=== PATIENT | male | born 1940 | race Caucasian/White ===

== ENCOUNTER → 2017-12-11 16:34 | Outpatient (CLI) | payer MEDICARE, OTHER, SELFPAY ==
[2017-01-10 11:37] VITALS: BMI 37.9
--- NOTE | 2017-12-11 16:42 | RAD_ITS ---
STUDY: X-RAY CHEST REASON FOR EXAM: Male, 77 years old. COUGH TECHNIQUE: Frontal and lateral views of the chest. COMPARISON: February 28, 2017 FINDINGS: Chronic appearing increased interstitial lung markings. Total right shoulder arthroplasty. There is no demonstrated pleural abnormality. Normal heart size. Normal mediastinum and jody. Normal visualized pulmonary arteries. There is atherosclerotic calcification of the aortic arch with tortuosity. There are diffuse degenerative changes of the visualized thoracic spine. There is degenerative osteoarthritis of the bilateral shoulders. There is no demonstrated abnormality of the visualized soft tissue structures of the upper abdomen. RAD/Chest PA and Lateral IMPRESSION: There are no acute findings. Electronically Signed: Tolu Beck MD at 17:11 EST , Service support ,
== END ==
PROVIDERS: Family Provider Family Medicine; PCP Family Medicine; Visit Provider Family Medicine
DX: J18.1 Lobar pneumonia, unspecified organism (principal)
CPT/HCPCS: 71046

== ENCOUNTER → 2017-12-21 09:43 | Outpatient (CLI) | payer MEDICARE, OTHER, SELFPAY ==
[2017-01-10 11:37] VITALS: BMI 37.9
[2017-12-21 12:22] LABS: Absolute Lymphocyte Count 2.03 X10^3/ul (0.83-4.51); Absolute Neutrophil Count 4.2 X10^3/uL (2.0-7.7); Basophil# 0.02 X10^3/uL; Basophil% 0.3 % (0-1); Eosinophils% 5.3 % (0-5); Hemoglobin 15.3 g/dl (13.0-16.5); Lymphocyte # 2.03 X10^3/ul (4.0); Lymphocyte % 27.1 % (19-41); Mean Corp Hgb Conc 32.6 g/gl (32-36); Mean Corpuscular Hgb 28.8 pg (27.0-32.0); Mean Corpuscular Volume 88.5 fL (80-94); Mean Platelet Vol. 9.9 fl (6.2-12.0); Monocyte# 0.79 X10^3/uL; Monocyte% 10.6 % (0-10); Neutrophil # 4.23 X10^3/uL (2.7-7.7); Neutrophil % 56.6 % (47-70); Platelet Count 190 K/mm3 (150-450); RBC Distribution Width CV 14.1 % (11.6-14.6); RBC Distribution Width SD 45.6 fl (35.1-43.9); Red Blood Count 5.31 M/mm3 (4.6-6.2); White Blood Count 7.5 K/mm3 (4.4-11.0)
[2017-12-21 12:29] LABS: POSITIVE COUNT NO; POSITIVE DIFFERENTIAL NO; POSITIVE MORPHOLOGY NO
[2017-12-21 13:00] LABS: Anion Gap 10 (5-15); BUN 17 mg/dL (7-18); BUN/Creat Ratio 17.2 RATIO (10-20); Chloride 105 mmol/L (98-107); Creatinine, Serum 0.99 mg/dL (0.70-1.30); EST Glomerular Filtration Rate 78 mL/min (>60); Est Glom Filt Rate - Afr Amer 95 mL/min (>60); Glucose 151 mg/dL (74-106); Potassium 4.1 mmol/L (3.5-5.1); Sodium Level 141 mmol/L (136-145)
[2017-12-21 13:14] LABS: AST(SGOT) 68 U/L (15-37); Alanine Aminotransfer ALT/SGPT 67 U/L (16-61); Albumin, Serum 3.9 g/dL (3.2-5.0); Alkaline Phosphatase 62 U/L (45-117); Bilirubin, Direct 0.22 mg/dL (0.00-0.30); Cholesterol 147 mg/dL (200); Globulin 3.6 g/dL (2.2-4.2); High Density Lipoprotein 56 mg/dL; Protein, Total 7.5 g/dL (6.4-8.2); Triglycerides 174 mg/dL; Very Low Density Lipoprotein 35 mg/dL (5-40)
== END ==
PROVIDERS: Internal Medicine Cardiovascular Disease; Family Provider Family Medicine; PCP Family Medicine; Visit Provider Family Medicine
DX: I10 Essential (primary) hypertension (principal); E11.9 Type 2 diabetes mellitus without complications; E78.5 Hyperlipidemia, unspecified; Z79.899 Other long term (current) drug therapy
CPT/HCPCS: 36415; 80048; 80061; 80076; 85025

== ENCOUNTER → 2018-01-07 15:37 | Outpatient (CLI) | payer MEDICARE, OTHER, SELFPAY ==
[2017-01-10 11:37] VITALS: BMI 37.9
[2018-01-07 17:50] LABS: Absolute Lymphocyte Count 2.16 X10^3/ul (0.83-4.51); Absolute Neutrophil Count 3.6 X10^3/uL (2.0-7.7); Basophil# 0.03 X10^3/uL; Basophil% 0.4 % (0-1); Eosinophils% 4.4 % (0-5); Hematocrit 42.5 % (40-54); Hemoglobin 14.4 g/dl (13.0-16.5); Lymphocyte # 2.16 X10^3/ul (4.0); Lymphocyte % 31.3 % (19-41); Mean Corp Hgb Conc 33.9 g/gl (32-36); Mean Corpuscular Hgb 29.3 pg (27.0-32.0); Mean Corpuscular Volume 86.6 fL (80-94); Mean Platelet Vol. 10.3 fl (6.2-12.0); Monocyte# 0.77 X10^3/uL; Monocyte% 11.2 % (0-10); Neutrophil # 3.62 X10^3/uL (2.7-7.7); Neutrophil % 52.6 % (47-70); Platelet Count 198 K/mm3 (150-450); RBC Distribution Width CV 14.2 % (11.6-14.6); RBC Distribution Width SD 44.4 fl (35.1-43.9); Red Blood Count 4.91 M/mm3 (4.6-6.2); White Blood Count 6.9 K/mm3 (4.4-11.0)
[2018-01-07 17:54] LABS: ALB/GLOB Ratio 1.1 RATIO (0.9-2.4); AST(SGOT) 74 U/L (15-37); Alanine Aminotransfer ALT/SGPT 75 U/L (16-61); Albumin, Serum 3.5 g/dL (3.2-5.0); Alkaline Phosphatase 62 U/L (45-117); Anion Gap 6 (5-15); BUN 15 mg/dL (7-18); BUN/Creat Ratio 16.4 RATIO (10-20); Calcium,Total 8.7 mg/dL (8.5-10.1); Chloride 105 mmol/L (98-107); Creatinine, Serum 0.91 mg/dL (0.70-1.30); EST Glomerular Filtration Rate 86 mL/min (>60); Est Glom Filt Rate - Afr Amer 104 mL/min (>60); Globulin 3.3 g/dL (2.2-4.2); Glucose 140 mg/dL (74-106); Potassium 3.9 mmol/L (3.5-5.1); Protein, Total 6.8 g/dL (6.4-8.2); Sodium Level 138 mmol/L (136-145)
[2018-01-07 17:57] LABS: POSITIVE COUNT NO; POSITIVE DIFFERENTIAL NO; POSITIVE MORPHOLOGY NO
== END ==
PROVIDERS: Family Provider Family Medicine; PCP Family Medicine; Visit Provider Family Medicine
DX: K52.9 Noninfective gastroenteritis and colitis, unspecified (principal); R23.3 Spontaneous ecchymoses
CPT/HCPCS: 36415; 80053; 85025

== ENCOUNTER → 2018-01-10 15:46 | Outpatient (CLI) | payer MEDICARE, OTHER, SELFPAY ==
[2017-01-10 11:37] VITALS: BMI 37.9
[2018-01-14 14:19] LABS: Giardia Lamblia, Stool EIA Negative (Negative)
== END ==
PROVIDERS: Family Provider Family Medicine; PCP Family Medicine; Visit Provider Family Medicine
DX: K52.9 Noninfective gastroenteritis and colitis, unspecified (principal); R23.3 Spontaneous ecchymoses
CPT/HCPCS: 87329; 87493; 87506

== ENCOUNTER → 2018-01-22 08:50 | Outpatient (CLI) | payer MEDICARE, OTHER, SELFPAY ==
[2017-01-10 11:37] VITALS: BMI 37.9
[2018-01-22 11:25] LABS: AST(SGOT) 47 U/L (15-37); Alanine Aminotransfer ALT/SGPT 56 U/L (16-61); Albumin, Serum 3.7 g/dL (3.2-5.0); Alkaline Phosphatase 62 U/L (45-117); Cholesterol 135 mg/dL (200); Globulin 3.4 g/dL (2.2-4.2); High Density Lipoprotein 50 mg/dL; Protein, Total 7.1 g/dL (6.4-8.2); Triglycerides 234 mg/dL; Very Low Density Lipoprotein 47 mg/dL (5-40)
== END ==
PROVIDERS: Family Provider Family Medicine; PCP Family Medicine; Visit Provider Nurse Practitioner Family
DX: E78.5 Hyperlipidemia, unspecified (principal); Z79.899 Other long term (current) drug therapy
CPT/HCPCS: 36415; 80061; 80076

== ENCOUNTER → 2018-03-25 08:58 | Outpatient (CLI) | payer MEDICARE, OTHER, SELFPAY ==
[2017-01-10 11:37] VITALS: BMI 37.9
[2018-03-25 12:43] LABS: AST(SGOT) 57 U/L (15-37); Alanine Aminotransfer ALT/SGPT 64 U/L (16-61); Albumin, Serum 3.7 g/dL (3.2-5.0); Alkaline Phosphatase 67 U/L (45-117); Bilirubin, Direct 0.18 mg/dL (0.00-0.30); Cholesterol 125 mg/dL (200); Globulin 3.6 g/dL (2.2-4.2); High Density Lipoprotein 52 mg/dL; Protein, Total 7.3 g/dL (6.4-8.2); Thyroid Stim Hormone (TSH) 3.34 uIU/mL (0.358-3.74); Triglycerides 137 mg/dL; Very Low Density Lipoprotein 27 mg/dL (5-40)
== END ==
PROVIDERS: Nurse Practitioner Family; Family Provider Family Medicine; PCP Family Medicine; Visit Provider Family Medicine
DX: E78.5 Hyperlipidemia, unspecified (principal); Z79.899 Other long term (current) drug therapy
CPT/HCPCS: 36415; 80061; 80076; 84443

== ENCOUNTER → 2018-06-21 09:33 | Outpatient (CLI) | payer MEDICARE, OTHER, SELFPAY ==
[2017-01-10 11:37] VITALS: BMI 37.9
--- NOTE | 2018-06-21 10:34 | CDU_ITS ---
Reason For Study: Carotid bruit Rt. Velocities/BP Lt. Velocities/BP Prox CCA 90.9/19.3 cm/sec. Prox CCA 100.0/21.1 cm/sec. Mid CCA 83.8/17.0 cm/sec. Mid CCA 88.5/25.8 cm/sec. Dist CCA 73.3/14.7 cm/sec. Dist CCA 75.6/18.8 cm/sec. Prox ICA 53.9/15.2 cm/sec. Prox ICA 66.3/24.0 cm/sec. Mid ICA 64.0/22.8 cm/sec. Mid ICA 75.6/25.8 cm/sec. Dist ICA 89.1/28.7 cm/sec. Dist ICA 94.4/33.4 cm/sec. Rt. ICA/CCA = 1.1. Lt. ICA/CCA = 1.1. Prox ECA 120.0/15.8 cm/sec. Prox ECA 106.0/17.6 cm/sec. Rt. Vert. 53.7/14.7 cm/sec. Lt. Vert. 51.0/16.4 cm/sec. Right Extracranial There is intimal thickening but no significant atherosclerotic plaque noted in the right common carotid artery. There is heterogeneous, irregular atherosclerotic plaque noted in the right internal carotid artery. There is intimal thickening but no significant atherosclerotic plaque noted in the right external carotid artery. Antegrade flow is noted in the right vertebral artery. Left Extracranial There is intimal thickening but no significant atherosclerotic plaque noted in the left common carotid artery. There is heterogeneous, irregular atherosclerotic plaque noted in the left internal carotid artery. There is no significant atherosclerotic plaque noted in the left external carotid artery. Antegrade flow is noted in the left vertebral artery. Procedure Carotid Duplex 24698. Exam performed in department. Interpretation Summary Minimal calcific plague at the proximal right internal carotid with <50% stenosis. Mild smooth calcific plague at the proximal left internal carotid with <50% stenosis. Mild disease bilateral external carotids Patent and antegrade vertebrals bilaterally Ordering Physician: Tanner Tam Referring Physician: Jose Manuel Estevez Performed By: Karolyn De Anda RVT
--- NOTE | 2018-06-21 10:34 | ECHOCS_ITS ---
Reason For Study: ASHD, DYSPNEA/SOB Procedure This was a 2D Doppler, Color Flow transthoracic echocardiogram. The study was technically difficult. Due to body habitus. Contrast injection was performed. Left Ventricle Normal size and thickness. The estimated ejection fraction is 65 %. Stage 1 diastolic dysfunction. No regional wall motion abnormalities noted. Right Ventricle Normal size and thickness. Normal systolic function. Atria Normal left atrium. Normal right atrium. Normal atrial septum. Mitral Valve The mitral valve is structurally normal. No prolapse or stenosis seen. Tricuspid Valve Normal tricuspid valve. Trivial tricuspid valve insufficiency. Right ventricular systolic pressure estimated to be 31 mmHg. Aortic Valve Mild diffuse aortic valve thickening. Moderate focal aortic valve thickening. Immobile right coronary cusp. Mild aortic stenosis. Peak aortic valve gradient 13 mmHg. Mean aortic valve gradient 8 mmHg. Pulmonic Valve The pulmonic valve is not well visualized. Great Vessels Normal aortic root. Normal arch. Normal inferior vena cava. Inferior vena cava collapse with sniff. Pericardium/Pleural No pericardial effusion. Medication 22 gauge I.V. with prn adaptor inserted into right arm. Diluted definity 3.0ml given slow IV push to enhance endocardial definition. MMode/2D Measurements & Calculations LVIDd: 4.4 cm IVSd: 1.2 cm LVOT diam: 2.1 cm LVIDs: 2.7 cm LVPWd: 1.2 cm LVOT area: 3.3 cm2 RVDd: 2.9 cm FS: 38.7 % Ao root diam: 3.7 cm LAV(MOD-bp): 58.5 ml LA A4 area: 18.6 cm2 LA dimension: 4.0 cm LAV(MOD-bp) Indexed: 25.4 ml/m2 LAV(MOD-sp2): 52.2 ml LAV(MOD-sp4): 61.1 ml RA A4 area: 14.0 cm2 Doppler Measurements & Calculations MV E max silverio: 66.2 cm/sec Lat Peak E' Silverio: 6.6 cm/sec Med Peak E' Silverio: 5.8 cm/sec MV A max silverio: 96.1 cm/sec E/E' lat: 10.0 E/E' med: 11.4 MV E/A: 0.69 Ao V2 max: 179.9 cm/sec LV V1 max: 94.4 cm/sec SV(LVOT): 63.2 ml Ao max P.0 mmHg LV V1 max P.6 mmHg Ao V2 mean: 131.4 cm/sec LV V1 mean P.0 mmHg Ao mean P.5 mmHg LV V1 mean: 68.1 cm/sec Ao V2 VTI: 36.6 cm LV V1 VTI: 18.9 cm FARIBA(I,D): 1.7 cm2 FARIBA(V,D): 1.8 cm2 PA V2 max: 84.0 cm/sec TR max silverio: 255.9 cm/sec TR max P.2 mmHg Interpretation Summary The estimated ejection fraction is 65 %. Stage 1 diastolic dysfunction. Trivial tricuspid valve insufficiency. Right ventricular systolic pressure estimated to be 31 mmHg. Immobile right coronary cusp. Mild aortic stenosis. Compared to echo report dated 05/16/2017, no appreciable changes noted. The study was technically difficult. Contrast injection was performed. Ordering Physician: Tanner Tam Referring Physician: Jose Manuel Estevez Performed By: Pallavi Pinzon RDCS, RVT
== END ==
PROVIDERS: Family Provider Family Medicine; PCP Family Medicine; Visit Provider Internal Medicine Cardiovascular Disease
DX: I25.10 Atherosclerotic heart disease of native coronary artery without angina pectoris (principal); R09.89 Other specified symptoms and signs involving the circulatory and respiratory systems
CPT/HCPCS: 93306; 93880; Q9957; A4216; C8929

== ENCOUNTER → 2018-07-03 09:34 | Outpatient (CLI) | payer MEDICARE, OTHER, SELFPAY ==
[2017-01-10 11:37] VITALS: BMI 37.9
== END ==
PROVIDERS: Family Provider Family Medicine; PCP Family Medicine; Visit Provider Internal Medicine Cardiovascular Disease
DX: I25.10 Atherosclerotic heart disease of native coronary artery without angina pectoris (principal); I25.2 Old myocardial infarction; R07.89 Other chest pain; R06.02 Shortness of breath; R06.00 Dyspnea, unspecified; Z95.5 Presence of coronary angioplasty implant and graft
CPT/HCPCS: 93017; 93350; J7030; A4216

== ENCOUNTER → 2018-09-25 08:43 | Outpatient (CLI) | payer MEDICARE, OTHER, SELFPAY ==
[2017-01-10 11:37] VITALS: BMI 37.9
[2018-09-25 09:49] LABS: AST(SGOT) 57 U/L (15-37); Alanine Aminotransfer ALT/SGPT 72 U/L (16-61); Albumin, Serum 3.6 g/dL (3.2-5.0); Alkaline Phosphatase 69 U/L (45-117); Bilirubin, Direct 0.23 mg/dL (0.00-0.30); Cholesterol 139 mg/dL (200); Globulin 3.3 g/dL (2.2-4.2); High Density Lipoprotein 51 mg/dL; Protein, Total 6.9 g/dL (6.4-8.2); Triglycerides 216 mg/dL; Very Low Density Lipoprotein 43 mg/dL (5-40)
== END ==
PROVIDERS: Family Provider Family Medicine; PCP Family Medicine; Referring Provider Nurse Practitioner Family; Visit Provider Nurse Practitioner Family
DX: E78.5 Hyperlipidemia, unspecified (principal)
CPT/HCPCS: 36415; 80061; 80076

== ENCOUNTER → 2018-11-18 15:29 | Outpatient (CLI) | payer MEDICARE, OTHER, SELFPAY ==
[2017-01-10 11:37] VITALS: BMI 37.9
--- NOTE | 2018-11-18 15:35 | RAD_ITS ---
STUDY: X-RAY CHEST REASON FOR EXAM: Male, 78 years old. Cough. TECHNIQUE: PA and lateral views of the chest. COMPARISON: December 11, 2017 FINDINGS: There is no new focal consolidation. There are stable left basilar streaky opacities. Normal size heart. Normal mediastinum and jody. Normal visualized pulmonary arteries. Normal visualized aortic arch and descending thoracic aorta. There are diffuse degenerative changes of the visualized thoracic spine. There is a right shoulder arthroplasty. There is no demonstrated abnormality of the visualized soft tissue structures of the upper abdomen. RAD/Chest PA and Lateral IMPRESSION: Stable examination demonstrating no acute cardiopulmonary process. Electronically Signed: Christina Greene MD at 16:05 EST Tel , Service support ,
[2018-11-18 18:00] LABS: Absolute Lymphocyte Count 2.65 X10^3/ul (0.83-4.51); Absolute Neutrophil Count 5.4 X10^3/uL (2.0-7.7); Basophil# 0.03 X10^3/uL; Basophil% 0.3 % (0-1); Eosinophil# 0.33 X10^3/uL; Eosinophils% 3.5 % (0-5); Hematocrit 45.7 % (40-54); Hemoglobin 15.2 g/dl (13.0-16.5); Lymphocyte # 2.65 X10^3/ul (4.0); Lymphocyte % 27.9 % (19-41); Mean Corp Hgb Conc 33.3 g/gl (32-36); Mean Corpuscular Hgb 29.9 pg (27.0-32.0); Mean Corpuscular Volume 89.8 fL (80-94); Monocyte# 1.08 X10^3/uL; Monocyte% 11.4 % (0-10); Neutrophil # 5.37 X10^3/uL (2.7-7.7); Neutrophil % 56.6 % (47-70); Platelet Count 245 K/mm3 (150-450); RBC Distribution Width CV 14.1 % (11.6-14.6); RBC Distribution Width SD 46.1 fl (35.1-43.9); Red Blood Count 5.09 M/mm3 (4.6-6.2); White Blood Count 9.5 K/mm3 (4.4-11.0)
[2018-11-18 18:07] LABS: ALB/GLOB Ratio 1.1 RATIO (0.9-2.4); AST(SGOT) 80 U/L (15-37); Alanine Aminotransfer ALT/SGPT 74 U/L (16-61); Albumin, Serum 3.9 g/dL (3.2-5.0); Alkaline Phosphatase 77 U/L (45-117); Anion Gap 12 (5-15); BUN 15 mg/dL (7-18); BUN/Creat Ratio 14.6 RATIO (10-20); Calcium,Total 9.5 mg/dL (8.5-10.1); Chloride 101 mmol/L (98-107); Creatinine, Serum 1.03 mg/dL (0.70-1.30); EST Glomerular Filtration Rate 74 mL/min (>60); Est Glom Filt Rate - Afr Amer 90 mL/min (>60); Globulin 3.6 g/dL (2.2-4.2); Glucose 168 mg/dL (74-106); Protein, Total 7.5 g/dL (6.4-8.2); Sodium Level 141 mmol/L (136-145); T4 Free Direct 0.84 ng/dL (0.76-1.46); Thyroid Stim Hormone (TSH) 4.05 uIU/mL (0.358-3.74)
[2018-11-18 18:21] LABS: POSITIVE COUNT NO; POSITIVE DIFFERENTIAL NO; POSITIVE MORPHOLOGY NO
== END ==
PROVIDERS: Family Provider Family Medicine; PCP Family Medicine; Referring Provider Family Medicine; Visit Provider Family Medicine
DX: E11.9 Type 2 diabetes mellitus without complications (principal); I10 Essential (primary) hypertension; R79.89 Other specified abnormal findings of blood chemistry; R05 Cough; R06.02 Shortness of breath
CPT/HCPCS: 36415; 71046; 80053; 84439; 84443; 85025

== ENCOUNTER → 2019-01-07 09:52 | Outpatient (CLI) | payer MEDICARE, OTHER, SELFPAY ==
[2017-01-10 11:37] VITALS: BMI 37.9
[2018-12-30 14:44] VITALS: BMI 38.5
[2019-01-07 13:02] LABS: T4 Free Direct 0.82 ng/dL (0.76-1.46); Thyroid Stim Hormone (TSH) 3.75 uIU/mL (0.358-3.74)
== END ==
PROVIDERS: Family Provider Family Medicine; PCP Family Medicine; Visit Provider Family Medicine
DX: E03.9 Hypothyroidism, unspecified (principal)
CPT/HCPCS: 36415; 84439; 84443

== ENCOUNTER → 2019-01-08 13:22 | Outpatient (CLI) | payer MEDICARE, OTHER, SELFPAY ==
[2017-01-10 11:37] VITALS: BMI 37.9
[2018-12-30 14:44] VITALS: BMI 38.5
[2019-01-08 13:24] LABS: Bacteria 0 SEEN /hpf (None Seen); Mucous, Urine 0 SEEN /hpf (<or=2+); Red Blood Cells-Urine 0 SEEN /hpf (0-5); Squamous Epithelial Cells - UA 0 SEEN /hpf (0-5); White Blood Cells 0 SEEN /hpf (0-5)
[2019-01-08 15:42] LABS: Color, Urine Yellow (Yellow); Glucose, Dipstick 1000 mg/dl (Normal); Ketone-Dipstick Negative (Negative); Leukocyte Esterase-Dipstick Negative /ul (Negative); Nitrite-Dipstick Negative (Negative); Occult Blood-Urine Negative /ul (Negative); Protein-Dipstick Negative (Negative); Specific Gravity, Urine 1.015 (1.002-1.030); Urine Bilirubin Dipstick Negative (Negative); Urine Clarity Clear (Clear); Urine Urobilinogen Normal (Normal)
== END ==
PROVIDERS: Family Provider Family Medicine; PCP Family Medicine; Visit Provider Family Medicine
DX: Z87.442 Personal history of urinary calculi (principal)
CPT/HCPCS: 81001

== ENCOUNTER 2019-02-16 19:02 | Inpatient (IN) | payer MEDICARE, OTHER, SELFPAY ==
[2017-01-10 11:37] VITALS: BMI 37.9
[2018-12-30 14:44] VITALS: BMI 38.5
[2019-02-16 19:04] VITALS: BP 162/69; PULSE 101; RESP 18; TEMP 37.7; O2SAT 95; BMI 38.7
--- NOTE | 2019-02-16 19:57 | EKG12_ITS ---
Test Reason : WEAKNESS Blood Pressure : / mmHG Vent. Rate : 098 BPM Atrial Rate : 098 BPM P-R Int : 166 ms QRS Dur : 088 ms QT Int : 336 ms P-R-T Axes : 026 -12 055 degrees QTc Int : 428 ms Normal sinus rhythm Low Voltage QRS (Limb Leads) Poor R-Wave Progression Confirmed by OCTAVIO TOURE, STEWART ([id number]), newspaper photo editor TRAE LEVY ([id number]) on 02/19/2019 1:09:44 PM Referred By: Confirmed By:STEWART CUNNINGHAM MD
[2019-02-16] MEDS: 0.9% Normal Saline 1,000 ML 1000 ML IV (20:06)
[2019-02-16 20:18] LABS: Absolute Lymphocyte Count 1.42 X10^3/ul (0.83-4.51); Basophil# 0.02 X10^3/uL; Basophil% 0.1 % (0-1); Eosinophil# 0.06 X10^3/uL; Eosinophils% 0.4 % (0-5); Hematocrit 43.7 % (40-54); Hemoglobin 14.5 g/dl (13.0-16.5); Lymphocyte # 1.42 X10^3/ul (4.0); Lymphocyte % 9.4 % (19-41); Mean Corp Hgb Conc 33.2 g/gl (32-36); Mean Corpuscular Hgb 28.8 pg (27.0-32.0); Mean Corpuscular Volume 86.7 fL (80-94); Mean Platelet Vol. 10.4 fl (6.2-12.0); Monocyte# 1.55 X10^3/uL; Monocyte% 10.3 % (0-10); Neutrophil # 11.96 X10^3/uL (2.7-7.7); Neutrophil % 79.6 % (47-70); Platelet Count 166 K/mm3 (150-450); RBC Distribution Width SD 44.2 fl (35.1-43.9); Red Blood Count 5.04 M/mm3 (4.6-6.2)
[2019-02-16 20:20] LABS: Differential Indicated SCAN CRITERIA MET; POSITIVE COUNT NO; POSITIVE DIFFERENTIAL YES; POSITIVE MORPHOLOGY NO
[2019-02-16 20:30] LABS: ALB/GLOB Ratio 1.1 RATIO (0.9-2.4); AST(SGOT) 55 U/L (15-37); Alanine Aminotransfer ALT/SGPT 63 U/L (16-61); Albumin, Serum 3.7 g/dL (3.2-5.0); Alkaline Phosphatase 81 U/L (45-117); Anion Gap 9 (5-15); BUN 10 mg/dL (7-18); BUN/Creat Ratio 9.8 RATIO (10-20); Chloride 100 mmol/L (98-107); Creatinine, Serum 1.02 mg/dL (0.70-1.30); EST Glomerular Filtration Rate 75 mL/min (>60); Est Glom Filt Rate - Afr Amer 91 mL/min (>60); Estimated Creatinine Clearance 59.69 ml/min; Globulin 3.5 g/dL (2.2-4.2); Glucose 233 mg/dL (74-106); Lipase 97 U/L (73-393); Protein, Total 7.2 g/dL (6.4-8.2); Sodium Level 134 mmol/L (136-145)
--- NOTE | 2019-02-16 20:35 | CT_ITS ---
HISTORY: LEFT SIDE ABD PAIN WITH WEAKNESS SINCE YESTERDAY, FEVER, ELEVATED WBC, HX CAD, HTN, SC WITH STENTS, GB, DIAB, SKIN CA EXAMINATION: CT Abdomen And Pelvis W/ Contrast TECHNIQUE: Helically acquired images were obtained of the abdomen and pelvis following IV contrast. A radiation dose optimization technique was used for this scan. IV Contrast dosage and agent: 100ML Isovue 370 Oral contrast: None. COMPARISON: 09/23/15 CT abdomen and pelvis. FINDINGS: LOWER CHEST: Asymmetric density left posterior lung base. Right side clear. No cardiomegaly. LIVER: Hepatic steatosis with mild hepatomegaly. GALLBLADDER AND BILIARY TREE: Status post cholecystectomy. No intra- or extrahepatic biliary ductal dilation. KIDNEYS AND URETERS: Normal renal size and position. There is no hydronephrosis. ADRENAL GLANDS: 2.4 cm diameter low-density left adrenal nodule most likely an adenoma. Right adrenal gland are unremarkable. SPLEEN: Normal size without focal cystic or solid mass. PANCREAS: No focal cystic or solid mass. BOWEL: No evidence of acute appendicitis. No stomach or bowel distension. No focal inflammatory change observed. Sigmoid colon diverticulosis, no diverticulitis. LYMPH NODES: No enlarged mesenteric or retroperitoneal lymph nodes. PERITONEUM: No ascites or free air. No other fluid collection. VESSELS: Aorta is non-dilated. URINARY BLADDER: Unremarkable. REPRODUCTIVE ORGANS: No pelvic masses. ABDOMINAL WALL: Small umbilical and bilateral inguinal hernias contain fat but no bowel. BONES: L3-5 laminectomy. Prominent degenerative changes lumbar spine. No acute osseous abnormality. CT/Abdomen/Pelvis W IV Cont ONLY IMPRESSION: Asymmetric density left lung base; mild pneumonia versus asymmetric atelectasis. Several other chronic findings as above. Individualized dose optimization techniques were used for this CT. at 2123 Reported and signed by: Sylvain Andrade MD Electronically Signed: Sylvain Andrade, at 21:22 EDT Tel , Service support ,
[2019-02-16 20:45] LABS: Lactic Acid 2.1 mmol/L (0.4-2.0)
[2019-02-16 20:46] LABS: Mucous, Urine 0 SEEN /hpf (<or=2+); White Blood Cells 0 SEEN /hpf (0-5)
[2019-02-16 20:48] LABS: Differential Comment SCANNED
[2019-02-16 20:48] LABS: Color, Urine Yellow (Yellow); Glucose, Dipstick 1000 mg/dl (Normal); Ketone-Dipstick 15 mg/dl (Negative); Leukocyte Esterase-Dipstick Negative /ul (Negative); Nitrite-Dipstick Negative (Negative); Occult Blood-Urine 10 /ul (Negative); Protein-Dipstick Negative (Negative); Urine Bilirubin Dipstick Negative (Negative); Urine Clarity Sl. Cloudy (Clear); Urine Urobilinogen Normal (Normal)
[2019-02-16 20:55] VITALS: BP 169/79; PULSE 98; RESP 18; TEMP 37.7; O2SAT 95
[2019-02-16 21:03] VITALS: PULSE 101; RESP 18; O2SAT 97
--- NOTE | 2019-02-16 21:05 | RAD_ITS ---
HISTORY: LEFT SIDED ABD PAIN STARTED LAST NIGHT AND INCREASED WEAKNESS STARTED LAST NIGHT AND CONTINUED TODAY. EXAM/TECHNIQUE: XR Chest 1 View: COMPARISON: 11/18/18 CXR. FINDINGS: # of images incl. paperwork: 1 Left basilar opacity, new compared to prior. Lungs otherwise clear. No evidence of pneumothorax or pleural effusion. Right shoulder arthroplasty partially visible. No acute osseous abnormality. Heart size within normal limits. RAD/Chest 1 View (Portable) IMPRESSION: Left basilar opacity, pneumonia versus asymmetric atelectasis. at 2133 Reported and signed by: Sylvain Andrade MD Electronically Signed: Sylvain Andrade, at 21:32 EDT Tel , Service support ,
--- NOTE | 2019-02-16 21:16 | ED.RN ---
NOTIFIED- PT REFUSED MORPHINE AND ZOFRAN; UPDATED ON LACTIC ACID OF 2.1
[2019-02-16 21:37] LABS: Bacteria RARE /hpf (None Seen); Red Blood Cells-Urine 0-5 SEEN /hpf (0-5); Squamous Epithelial Cells - UA 0-5 SEEN /hpf (0-5)
--- NOTE | 2019-02-16 21:54 | ED.DCSUM_ITS ---
- ER Visit Summary Date of Service: 02/16/19 Chief Complaint: Weakness History of Present Illness: The patient is a 78 M who presents the emergency department with generalized weakness. He states that yesterday afternoon into the evening had a little bit of left upper quadrant discomfort. He states that he has had a cough and chills throughout the day. The pain was worse today. The was so bad that he could barely walk with his walker. Physical Examination: Temperature of 100 orally heart rate of 101 respirations are 18 pulse ox 95% room air blood pressure 162/69 Gen: Well-nourished well-developed morbidly obese Head: Normocephalic atraumatic Eyes: Perrl EOMI ENT: TMs clear no rhinorrhea moist mucous membranes Neck: Supple no lymphadenopathy no JVD nontender CVS: Regular rate tachycardic rhythm no murmurs normal S1-S2 Respiratory: No distress clear to auscultation bilaterally chest nontender (lung auscultation limited due to body habitus) moist cough Abdomen: Soft nontender nondistended normal bowel sounds no masses Back: Nontender Extremity: Nontender no edema Skin: Normal color no rash Neuro: alert orientated ?3 CN II-XII intact normal strength sensation reflexes gait cerebellar Psych: Normal affect normal mood Test Results: White blood cell count elevated at 15. EKG showed a sinus rhythm at a rate of 98. Troponin negative. Lactic acid elevated 2.1. Urinalysis normal. CT of the abdomen pelvis demonstrates a left lower lobe infiltrate. Otherwise no acute abdominal pathology to explain his discomfort. Chest x-ray showed the left lower lobe infiltrate. Emergency Department Course and Treatment: IV was established and patient received IV fluids. Later he received Rocephin and azithromycin after blood cultures. Plan is admission to the hospital. He did refuse morphine for pain. Impression: 1. Pneumonia 2. Sepsis This note was generated with [employer] dictation software. It may contain incorrect words, spelling, and punctuation that were not noted in review of the chart prior to signing ED Disposition - Plan for ED Patient: Referrals: Jose Manuel Estevez MD [Primary Care Provider] -
--- NOTE | 2019-02-16 21:56 | PCM.HP.STD ---
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 She denies any aggravating factor. Associated with symptoms is weakness to the point that he is unable to do his daily activities of living. He denies any aggravating factor to the pain. Associated with her symptoms is chills; poor appetite; and nausea without vomiting. He has on and off nonproductive cough that has been going on for some time On presentation patient he was found to have tachycardia with highest heart rate of 101; fever of 100.9; and white count of 15.0. Further he was found to have a lactic acid of 2.1. Chest x-ray showed left basilar opacity. Abdomen and pelvis CT showed asymmetric density of the left lung base. Past Medical History Past Medical History (Chronic Problems): Chronic Problems (Last Reviewed 12/30/18 @ 14:29 by Marilia Rodríguez) Essential hypertension (Chronic) Atherosclerosis of coronary artery of [place] heart without angina pectoris (Chronic) PCI-TYLER-Mid LCX w/ 3.0 x 32 mm Promus 01/10/2017 and PCI-TYLER w/ 3.0 x 12 mm Synergy Distal LCX overlapping it with the previous stent on 01/14/2017 History of coronary artery stent placement (Chronic 01/14/17) PCI-TYLER-Mid LCX w/ 3.0 x 32 mm Promus 01/10/2017 and PCI-TYLER w/ 3.0 x 12 mm Synergy Distal LCX overlapping it with the previous stent on 01/14/2017 Old inferior wall myocardial infarction (Chronic) Medical History: Medical History (Last Reviewed 02/17/19 @ 08:05 by Dipesh Grey MD) Essential hypertension (Chronic) I10 Carotid bruit (Acute) R09.89 Transient speech disturbance (Acute) R47.9 Chest discomfort (Acute) R07.89 Dyspnea on exertion (Acute) R06.09 Atherosclerosis of coronary artery of [place] heart without angina pectoris (Chronic) I25.10 PCI-TYLER-Mid LCX w/ 3.0 x 32 mm Promus 01/10/2017 and PCI-TYLER w/ 3.0 x 12 mm Synergy Distal LCX overlapping it with the previous stent on 01/14/2017 Old inferior wall myocardial infarction (Chronic) I25.2 Asthma J45.909 BPH (benign prostatic hyperplasia) N40.0 Cervical spondylosis M47.812 Elevated liver enzymes R74.8 Fatty liver K76.0 Fibromyalgia M79.7 GERD (gastroesophageal reflux disease) K21.9 Obesity E66.9 Osteoarthritis M19.90 Peripheral neuropathy G62.9 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 Type 2 diabetes mellitus without complications E11.9 Hypertension (Inactive) I10 Allergies acetaminophen [From Percocet] Allergy (Verified 02/16/19 19:12) Unknown hydrocodone [From Vicodin] Allergy (Verified 02/16/19 19:12) Unknown lactase [From Dairy Aid] Allergy (Verified 02/16/19 19:12) Unknown mold Allergy (Verified 02/16/19 19:12) Unknown oxycodone [From Percocet] Allergy (Verified 02/16/19 19:12) Unknown Penicillins Allergy (Verified 02/16/19 19:12) Unknown pollen extracts Allergy (Verified 02/16/19 19:12) Unknown rofecoxib [From Vioxx] Allergy (Verified 02/16/19 19:12) Unknown Sulfa (Sulfonamide Antibiotics) Allergy (Verified 02/16/19 19:12) Unknown Home Medications: Ambulatory Orders Medication Instructions Recorded Aspirin 81 mg PO DAILY 01/09/17 Cyclobenzaprine HCl 10 mg PO TID PRN 01/09/17 Lutein 20 mg PO QODAY 01/09/17 Metformin HCl [Glucophage] 500 mg PO BIDCM 01/09/17 Metoprolol(XL)Succ [Toprol Xl 25 mg PO DAILY 01/09/17 (Beta Kourtney)] Multivitamins,Therapeutic 1 tab PO DAILY 01/09/17 [Multivitamin] Ranolazine [Ranexa] 500 mg PO BID 01/09/17 Simvastatin [Zocor] 20 mg PO QHS 01/09/17 Tamsulosin HCl [Flomax] 0.4 mg PO BID 01/09/17 Tramadol HCl [Ultram] 50 mg PO BID PRN 01/09/17 Ubidecarenone [Co Q-10] 200 mg PO QODAY 01/09/17 finasteride 5 mg tablet 5 mg PO QDAY 06/07/18 gabapentin 100 mg capsule 100 mg PO BID cap 06/07/18 omeprazole 40 mg capsule,delayed 40 mg PO QDAY 06/07/18 release diclofenac 1 % topical gel 2 g TOPICAL BID g 12/30/18 Surgical History: Surgical History (Last Reviewed 02/17/19 @ 08:05 by Dipesh Grey MD) History of coronary artery stent placement (Chronic) Onset Date: 01/14/17 Z95.5 PCI-TYLER-Mid LCX w/ 3.0 x 32 mm Promus 01/10/2017 and PCI-TYLER w/ 3.0 x 12 mm Synergy Distal LCX overlapping it with the previous stent on 01/14/2017 H/O arthroscopy of left knee Z98.890 History of back surgery Z98.890 History of basal cell carcinoma excision Z98.890, Z85.828 History of prostate surgery Z98.890 History of right shoulder replacement Z96.611 History of tonsillectomy Z90.89 Hx of cholecystectomy Z90.49 Surgical History: cholecystectomy, tonsillectomy, - - Left knee Arthroscopy, Prostate procedure 1993, Lumbar Sx 2006, R shoulder eplacement 09/17/2012, Skin cancer removal of trunk arm and leg Lives: Spouse/ Significant Other Smoking Status: Former smoker Alcohol: None - *Family History Maternal Family History: Family History (Last Reviewed 02/17/19 @ 08:06 by Dipesh Grey MD) Father CAD (coronary artery disease) History Items: No pertinent history Review of Systems Constitutional: Reports: Anorexia, Chills. Denies: Weight Change HEENT: Denies: Head Aches, Sinus Congestion, Sinus Drainage Cardiovascular: Denies: Chest Pain, Palpitations Respiratory: Reports: Cough - Chronic. Denies: Shortness of breath at rest, Sputum production Gastrointestinal: Reports: Abdominal Pain, Nausea. Denies: Vomiting Genitourinary: Denies: Dysuria Musculoskeletal: Denies: Joint Pain, Joint Tenderness Skin: Denies: Rash, Wounds Neurological: Denies: Numbness, Tingling, Focal weakness Psychiatric: Denies: Anxiety, Depression, Homicidal Ideations, Suicidal Ideations Hematologic/ Lymphatic: Denies: Easy Bruising, Easy Bleeding VTE Information - Inpt Only VTE Present on Admission: No VTE Mechan Device Prophylaxis: None VTE Pharm Prophylaxis ordered?: Yes Patient Problems: Active and Suspected Problems (Last Reviewed 12/30/18 @ 14:29 by Marilia Rodríguez) Sepsis due to pneumonia (Acute) - Physical Exam General: Alert, Oriented x3, Cooperative HEENT: Atraumatic, PERRLA, EOMI, Normocephalic Neck: Supple, No JVD, Negative Carotid Bruits Lungs: Rales - Left lung base Cardiovascular: No murmurs, Tachycardic Abdomen: Bowel Sounds Present, Soft, Non Tender Extremities: No edema, Capillary Refill Less than 3 Seconds Skin: No rashes, No breakdown Musculoskeletal: No Tenderness to Palpation of Joints or Extremities Neurological: Neuro grossly intact Psych/Mental Status: Normal Affect, Appropriate Vital Signs Temp Pulse Resp BP Pulse Ox 100 F H 101 H 18 169/79 H 97 02/16/19 20:55 02/16/19 21:03 02/16/19 21:03 02/16/19 20:55 02/16/19 21:03 Oxygen Flow Rate (L/min) 2 Oxygen Delivery Method Nasal Cannula Weight: 119.2 kg Body Mass Index (BMI) 38.7 Laboratory Tests Past 24 Hrs 02/16/19 02/16/19 02/16/19 19:10 19:10 20:10 WBC 15.0 H RBC 5.04 Hgb 14.5 Hct 43.7 MCV 86.7 MCH 28.8 MCHC 33.2 RDW 14.0 RDW Differential 44.2 H Plt Count 166 MPV 10.4 Immature Gran % (Auto) 0.200 Neut % (Auto) 79.6 H Lymph % (Auto) 9.4 L [place] % (Auto) 10.3 H Eos % (Auto) 0.4 Baso % (Auto) 0.1 Absolute Neuts (auto) 12.0 H Absolute Lymphs (auto) 1.42 Total Counted Not Reportable Differential Comment SCANNED Sodium 134 L Potassium 4.0 Chloride 100 Carbon Dioxide 25.0 Anion Gap 9 BUN 10 Creatinine 1.02 Estim Creat Clear Calc 59.69 Est GFR (MDRD) Af Amer 91 Est GFR (MDRD) Non-Af 75 BUN/Creatinine Ratio 9.8 L Glucose 233 H Lactic Acid 2.1 H Calcium 9.0 Total Bilirubin 1.20 H AST 55 H ALT 63 H Alkaline Phosphatase 81 Troponin I < 0.015 Total Protein 7.2 Albumin 3.7 Globulin 3.5 Albumin/Globulin Ratio 1.1 Lipase 97 Urine Color Urine Clarity Urine pH Ur Specific [place] Urine Protein Urine Glucose (UA) Urine Ketones Urine Occult Blood Urine Nitrite Urine Bilirubin Urine Urobilinogen Ur Leukocyte Esterase Urine RBC Urine WBC Ur Squamous Epith Cells Urine Bacteria Urine Mucus 02/16/19 20:35 WBC RBC Hgb Hct MCV MCH MCHC RDW RDW Differential Plt Count MPV Immature Gran % (Auto) Neut % (Auto) Lymph % (Auto) [place] % (Auto) Eos % (Auto) Baso % (Auto) Absolute Neuts (auto) Absolute Lymphs (auto) Total Counted Differential Comment Sodium Potassium Chloride Carbon Dioxide Anion Gap BUN Creatinine Estim Creat Clear Calc Est GFR (MDRD) Af Amer Est GFR (MDRD) Non-Af BUN/Creatinine Ratio Glucose Lactic Acid Calcium Total Bilirubin AST ALT Alkaline Phosphatase Troponin I Total Protein Albumin Globulin Albumin/Globulin Ratio Lipase Urine Color Yellow Urine Clarity Sl. Cloudy Urine pH 6.0 Ur Specific [place] 1.010 Urine Protein Negative Urine Glucose (UA) 1000 H Urine Ketones 15 H Urine Occult Blood 10 H Urine Nitrite Negative Urine Bilirubin Negative Urine Urobilinogen Normal Ur Leukocyte Esterase Negative Urine RBC 0-5 SEEN Urine WBC 0 SEEN Ur Squamous Epith Cells 0-5 SEEN Urine Bacteria RARE Urine Mucus 0 SEEN Assessment/Plan All Active Problems (Last Reviewed 12/30/18 @ 14:29 by Marilia Rodríguez) Sepsis due to pneumonia (Acute) Carotid bruit (Acute) Transient speech disturbance (Acute) Chest discomfort (Acute) Dyspnea on exertion (Acute) The patient is a 78 year old M with a significant history of type 2 diabetes; essential hypertension; CAD status post stent; fibromyalgia and who had right eye lens implants on 02/12/2019 presenting because of progressively worsening severe left upper quadrant nonradiating pain; and meet SIRS criteria with fever of 100.9; tachycardia with heart rate of 101; leukocytosis of white count of 15 and with radiographic evidence of left basilar opacity consistent with sepsis secondary to community-acquired pneumonia. Second to committee acquired pneumonia Lactic acid: 2.1 RR ~18 on presentation Tachycardia with highest heart rate of 101 WBC of 15 Fever of 100.9 Fahrenheit Blood culture ?2 is pending Trend lactic acid Patient is not having a productive cough to obtain sputum culture. Chest x-ray: Showed left basilar opacity. Chest x-ray was independently reviewed I agree with radiologist interpretation Abdomen and pelvis CT showed asymmetrical density of the left lung base. CT was independently reviewed. I agree with the latest interpretation. Antibiotics: Received ceftriaxone and azithromycin emergency department. Ceftriaxone and azithromycin continued. IV hydration: Received IV fluid normal saline bolus at emergency department and was started on maintenance infusion. We will continue but decrease maintenance infusion rate. Patient denies any shortness of breath on presentation. Will order as needed albuterol if he does require it. Legionella antigen screen and Strep antigen ordered Incentive spirometer ordered. PRN morphine ordered for left lower quadrant pain which likely is refer to pain from left basilar pneumonia Trend CBC and BMP. Diabetes mellitus On presentation his blood glucose was not within goal On home metformin. Because of lactic acidosis and because of severe illness will discontinue metformin at this time We will put patient on basal insulin and correction scale insulin. Accu-Chek q. before meals at bedtime. Lactic acidosis Etiology include sepsis or use of metformin. Treat sepsis as above. Trend lactic acid Hold metformin. Recent lens implantation Next appointment is on 02/19/2019. Patient to follow-up outpatient. Chronic back pain Flexeril continued Ultram continued Neuropathy Reportedly he developed a neuropathy after back surgery and he attained his diabetes has worsened his neuropathy Gabapentin continued. History of CAD with stents Aspirin and ranolazine continued GERD Protonix continued BPH Finasteride continued Flomax continued DVT prophylaxis Lovenox continued Code Visit Inpatient E&M: 37691 Init Hosp L3
[2019-02-16] MEDS: 0.9% Normal Saline 1,000 ML 125 ML IV (22:04)
[2019-02-16 23:58] VITALS: BMI 37.0; BMI 37.1
[2019-02-17] VITALS (11 sets, daily range): BP systolic 100–150; BP diastolic 58–71; PULSE 68–92; RESP 16–20; TEMP 36.6–38.3; O2SAT 92–97
[2019-02-17 00:13] LABS: Reflex Lactate? Y
[2019-02-17 00:57] LABS: Lactic Acid 1.8 mmol/L (0.4-2.0)
[2019-02-17] MEDS: 0.9% Normal Saline 1,000 ML 75 ML IV (01:11)
[2019-02-17] MEDS: 0.9% NaCl Peripheral Flush Adult/Peds IV ×3 (01:11→13:37)
[2019-02-17] MEDS: traMADol 50 MG Tablet PO (01:48)
[2019-02-17 06:11] LABS: Absolute Lymphocyte Count 1.81 X10^3/ul (0.83-4.51); Absolute Neutrophil Count 11.1 X10^3/uL (2.0-7.7); Basophil# 0.03 X10^3/uL; Basophil% 0.2 % (0-1); Differential Indicated SCAN CRITERIA MET; Eosinophil# 0.02 X10^3/uL; Eosinophils% 0.1 % (0-5); Hematocrit 41.4 % (40-54); Hemoglobin 13.5 g/dl (13.0-16.5); Lymphocyte # 1.81 X10^3/ul (4.0); Lymphocyte % 12.4 % (19-41); Mean Corp Hgb Conc 32.6 g/gl (32-36); Mean Corpuscular Hgb 28.5 pg (27.0-32.0); Mean Corpuscular Volume 87.5 fL (80-94); Mean Platelet Vol. 10.2 fl (6.2-12.0); Monocyte# 1.69 X10^3/uL; Monocyte% 11.6 % (0-10); Neutrophil # 11.05 X10^3/uL (2.7-7.7); Neutrophil % 75.5 % (47-70); POSITIVE COUNT NO; POSITIVE DIFFERENTIAL YES; POSITIVE MORPHOLOGY NO; Platelet Count 156 K/mm3 (150-450); RBC Distribution Width CV 14.1 % (11.6-14.6); RBC Distribution Width SD 45.2 fl (35.1-43.9); Red Blood Count 4.73 M/mm3 (4.6-6.2); White Blood Count 14.6 K/mm3 (4.4-11.0)
[2019-02-17 06:28] LABS: Anion Gap 5 (5-15); BUN 8 mg/dL (7-18); BUN/Creat Ratio 8.8 RATIO (10-20); Calcium,Total 8.3 mg/dL (8.5-10.1); Chloride 104 mmol/L (98-107); Creatinine, Serum 0.91 mg/dL (0.70-1.30); EST Glomerular Filtration Rate 86 mL/min (>60); Est Glom Filt Rate - Afr Amer 104 mL/min (>60); Glucose 206 mg/dL (74-106); Potassium 4.1 mmol/L (3.5-5.1); Sodium Level 137 mmol/L (136-145)
[2019-02-17 06:54] LABS: Differential Comment SCANNED
[2019-02-17] MEDS: Ondansetron 4 MG/2 ML Vial IV (08:02)
[2019-02-17] MEDS: Multivitamins,Therapeutic Tablet 1 TABLET PO (08:57)
[2019-02-17] MEDS: Aspirin 81 MG TAB.CHEW PO (08:57)
[2019-02-17] MEDS: Metoprolol(XL)Succ 25 MG Tablet PO (10:17)
[2019-02-17] MEDS: Ranolazine 500 MG Tablet PO ×2 (10:17→22:08)
[2019-02-17] MEDS: Enoxaparin 40 MG/0.4 ML Syringe SC (10:18)
[2019-02-17] MEDS: Tamsulosin HCl 0.4 MG Capsule PO ×2 (10:18→22:06)
[2019-02-17] MEDS: Pantoprazole Sodium 40 MG Tablet PO (10:18)
[2019-02-17] MEDS: Gabapentin 100 MG Capsule PO ×2 (10:18→22:07)
[2019-02-17] MEDS: Finasteride 5 MG Tablet PO (10:18)
[2019-02-17 11:45] LABS: Pathologist Review Reviewed
[2019-02-17] MEDS: Insulin Lispro 100 UNIT/ML INSULN.PEN SQ ×3 (11:45→22:10)
[2019-02-17 12:00] LABS: Bedside Glucose 258 mg/dL (70-110)
--- NOTE | 2019-02-17 12:10 | CASEMGMT ---
RN CM Face to Face with patient for initial transition planning/care coordination assessment. RN CM introduced self and role at [facility]. Patient sitting in chair, alert and oriented, at bedside. Patient willing to participate in assessment and is able to answer all questions appropriately. Care providers, pharmacy, and demographics verified. Patient wishes to discharge home, denies need for home health at this time. Patient states he has no further needs or concerns at this time. CM to follow for discharge planning needs that may arise. PCP: Zenaida Specialists: Jared, environmental protection economist; [employer] Preferred Pharmacy: [facility] Insurance: [employer] Prescription Benefit: Yes Living Will/HPOA: Yes, Tamika Rico LNOK: Living Arrangements: Patient lives with in 1 story home with 2 steps and railing to enter the home. Patient is independent at home. Transportation: self/ DME/HHC: Patient has shower bench, raised toilet seat, cane, stair lift, grab bars, walker, wheelchair. Disposition Plan: Patient to discharge home with family support and follow-up plans in place. Anna MELGAR, RN, CM
--- NOTE | 2019-02-17 13:38 | PCM.PROGNOTE ---
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 Vital signs of presentation to the emergency room were temp 99.9, pulse rate 101, blood pressure 162/69, respiratory rate 18 and he was 95% saturated on a 3 L nasal cannula. Temp later gelacio to 100.9 ?F. White blood cell count was 15 with a left shift. Hemoglobin and platelets were within normal limits. Sodium was mildly decreased at 134 but the remainder of the BMP was unremarkable. Bilirubin was elevated at 1.2 and the AST was 55 with an ALT of 63. Alkaline phosphatase was normal at 81. Chest x-ray was reported as left basilar opacity however it is a poor inspiratory film and the defect is much clear on the CT scan of the abdomen pelvis. CT scan of the abdomen and pelvis showed an asymmetric density in the left lung base, hepatic steatosis and hepatomegaly, no evidence of acute appendicitis, no stomach or bowel distention, no focal inflammatory changes and sigmoid diverticulosis with no evidence of diverticulitis. He was admitted to the hospital with a diagnosis of community-acquired pneumonia and started on ceftriaxone and azithromycin. Legionella and streptococcal antigens were negative. He states that he became suddenly ill on Sunday. He denies sore throat, ear pain, rhinorrhea, coryza, myalgias and arthralgias. He had shaking chills and could not get warm. He became very weak and had a hard time ambulating.....felt like his legs were going to give out. Denies cough recently but, when he uses the IS he coughs.....it is dry. He is c/o of increased left lateral chest pain with deep inspiration. - Physical Exam General: Alert, Oriented x3, Cooperative, Well developed, Well nourished HEENT: Atraumatic, PERRLA, EOMI, Normocephalic Oral: Moist Mucosa Neck: Supple, No JVD Lungs: No rhonchi, No wheeze, Diminished, Rales - in the bases BL, L>R. I observed him doing the IS and he can get the float up to 1750 consistently Cardiovascular: Regular rate, Regular Rhythm, Normal S1, Normal S2, No Gallop Abdomen: Bowel Sounds Present, Soft, Non Tender, Non-Distended Extremities: No clubbing, No cyanosis, No edema Skin: No rashes, No breakdown Neurological: Cranial nerves II-XII grossly intact, Neuro grossly intact Psych/Mental Status: Normal Affect, Appropriate Vital Signs Temp Pulse Resp BP Pulse Ox 97.8 F 80 18 128/70 H 93 02/17/19 09:03 02/17/19 10:17 02/17/19 09:03 02/17/19 09:03 02/17/19 09:03 Oxygen Flow Rate (L/min) 2 Oxygen Delivery Method Room Air Weight: 254 lb 10.142 oz Body Mass Index (BMI) 37.0 Intake and Output for Last 24 Hours 02/15/19 02/16/19 02/17/19 23:59 23:59 23:59 Intake Total 955 / 955 Output Total 100 / 100 Balance 855 / 855 Microbiology Past 72 Hours 02/16/19 20:35 Streptococcus pneumoniae Antigen (M - Final Urine, Clean Catch 02/16/19 20:35 Legionella Antigen - Final Urine, Clean Catch Laboratory Tests Past 24 Hrs 02/16/19 02/16/19 02/16/19 19:10 19:10 20:10 WBC 15.0 H RBC 5.04 Hgb 14.5 Hct 43.7 MCV 86.7 MCH 28.8 MCHC 33.2 RDW 14.0 RDW Differential 44.2 H Plt Count 166 MPV 10.4 Immature Gran % (Auto) 0.200 Neut % (Auto) 79.6 H Lymph % (Auto) 9.4 L [place] % (Auto) 10.3 H Eos % (Auto) 0.4 Baso % (Auto) 0.1 Absolute Neuts (auto) 12.0 H Absolute Lymphs (auto) 1.42 Total Counted Not Reportable Differential Comment SCANNED Diff Path Review Sodium 134 L Potassium 4.0 Chloride 100 Carbon Dioxide 25.0 Anion Gap 9 BUN 10 Creatinine 1.02 Estim Creat Clear Calc 59.69 Est GFR (MDRD) Af Amer 91 Est GFR (MDRD) Non-Af 75 BUN/Creatinine Ratio 9.8 L Glucose 233 H Lactic Acid 2.1 H Calcium 9.0 Total Bilirubin 1.20 H AST 55 H ALT 63 H Alkaline Phosphatase 81 Troponin I < 0.015 Total Protein 7.2 Albumin 3.7 Globulin 3.5 Albumin/Globulin Ratio 1.1 Lipase 97 Urine Color Urine Clarity Urine pH Ur Specific [place] Urine Protein Urine Glucose (UA) Urine Ketones Urine Occult Blood Urine Nitrite Urine Bilirubin Urine Urobilinogen Ur Leukocyte Esterase Urine RBC Urine WBC Ur Squamous Epith Cells Urine Bacteria Urine Mucus 02/16/19 02/17/19 02/17/19 20:35 00:25 05:20 WBC 14.6 H RBC 4.73 Hgb 13.5 Hct 41.4 MCV 87.5 MCH 28.5 MCHC 32.6 RDW 14.1 RDW Differential 45.2 H Plt Count 156 MPV 10.2 Immature Gran % (Auto) 0.200 Neut % (Auto) 75.5 H Lymph % (Auto) 12.4 L [place] % (Auto) 11.6 H Eos % (Auto) 0.1 Baso % (Auto) 0.2 Absolute Neuts (auto) 11.1 H Absolute Lymphs (auto) 1.81 Total Counted Not Reportable Differential Comment SCANNED Diff Path Review Reviewed Sodium Potassium Chloride Carbon Dioxide Anion Gap BUN Creatinine Estim Creat Clear Calc Est GFR (MDRD) Af Amer Est GFR (MDRD) Non-Af BUN/Creatinine Ratio Glucose Lactic Acid 1.8 Calcium Total Bilirubin AST ALT Alkaline Phosphatase Troponin I Total Protein Albumin Globulin Albumin/Globulin Ratio Lipase Urine Color Yellow Urine Clarity Sl. Cloudy Urine pH 6.0 Ur Specific [place] 1.010 Urine Protein Negative Urine Glucose (UA) 1000 H Urine Ketones 15 H Urine Occult Blood 10 H Urine Nitrite Negative Urine Bilirubin Negative Urine Urobilinogen Normal Ur Leukocyte Esterase Negative Urine RBC 0-5 SEEN Urine WBC 0 SEEN Ur Squamous Epith Cells 0-5 SEEN Urine Bacteria RARE Urine Mucus 0 SEEN 02/17/19 05:20 WBC RBC Hgb Hct MCV MCH MCHC RDW RDW Differential Plt Count MPV Immature Gran % (Auto) Neut % (Auto) Lymph % (Auto) [place] % (Auto) Eos % (Auto) Baso % (Auto) Absolute Neuts (auto) Absolute Lymphs (auto) Total Counted Differential Comment Diff Path Review Sodium 137 Potassium 4.1 Chloride 104 Carbon Dioxide 28.0 Anion Gap 5 BUN 8 Creatinine 0.91 Estim Creat Clear Calc 66.90 Est GFR (MDRD) Af Amer 104 Est GFR (MDRD) Non-Af 86 BUN/Creatinine Ratio 8.8 L Glucose 206 H Lactic Acid Calcium 8.3 L Total Bilirubin AST ALT Alkaline Phosphatase Troponin I Total Protein Albumin Globulin Albumin/Globulin Ratio Lipase Urine Color Urine Clarity Urine pH Ur Specific [place] Urine Protein Urine Glucose (UA) Urine Ketones Urine Occult Blood Urine Nitrite Urine Bilirubin Urine Urobilinogen Ur Leukocyte Esterase Urine RBC Urine WBC Ur Squamous Epith Cells Urine Bacteria Urine Mucus POC Glucose 02/17/19 11:37 POC Glucose 258 H Medical Necessity - Tobacco Use Smoking Status: Former smoker Assessment/Plan All Active Problems (Last Reviewed 02/17/19 @ 08:05 by Dipesh Grey MD) Sepsis due to pneumonia (Acute) Carotid bruit (Acute) Transient speech disturbance (Acute) Chest discomfort (Acute) Dyspnea on exertion (Acute) Impressions 1. Sepsis secondary to left basilar pneumonia 2. Community-acquired pneumonia with pleuritic chest pain 3. Diabetes mellitus type 2 4. Hypertension 5. Asthma 6. Coronary artery disease with history of stents 7. GERD 8. Fibromyalgia 9. Morbid obesity 10. BPH Continue azithromycin and Rocephin Incentive spirometry for 10 breaths hourly while awake. Continue Acapella 3-4 times a day Motrin 400 mg p.o. every 8 hours for pleuritic chest pain Ambulatory pulse ox on room air prior to discharge Code Visit Inpatient E&M: 68629 Subs Hosp L2
[2019-02-17 16:26] LABS: Bedside Glucose 238 mg/dL (70-110)
[2019-02-17] MEDS: Ibuprofen 400 MG Tablet PO ×2 (17:04→22:07)
[2019-02-17] MEDS: Atorvastatin Calcium 10 MG Tablet PO (22:07)
[2019-02-17] MEDS: guaiFENesin 1,200 MG Tablet 1200 MG PO (22:07)
[2019-02-17 22:51] LABS: Bedside Glucose 224 mg/dL (70-110)
[2019-02-18 03:05] VITALS: BP 124/67; PULSE 69; RESP 16; TEMP 36.3; O2SAT 93
[2019-02-18] MEDS: Ibuprofen 400 MG Tablet PO ×2 (06:38→14:04)
[2019-02-18] MEDS: Insulin Lispro 100 UNIT/ML INSULN.PEN SQ ×2 (06:39→11:21)
[2019-02-18 06:46] LABS: Bedside Glucose 189 mg/dL (70-110)
[2019-02-18 08:45] VITALS: BP 135/67; PULSE 77; RESP 18; TEMP 36.8; O2SAT 93
[2019-02-18 08:46] VITALS: PULSE 77
[2019-02-18] MEDS: Gabapentin 100 MG Capsule PO (08:46)
[2019-02-18] MEDS: Multivitamins,Therapeutic Tablet 1 TABLET PO (08:46)
[2019-02-18] MEDS: Ranolazine 500 MG Tablet PO (08:46)
[2019-02-18] MEDS: Tamsulosin HCl 0.4 MG Capsule PO (08:46)
[2019-02-18] MEDS: Metoprolol(XL)Succ 25 MG Tablet PO (08:46)
[2019-02-18] MEDS: Pantoprazole Sodium 40 MG Tablet PO (08:47)
[2019-02-18] MEDS: Aspirin 81 MG TAB.CHEW PO (08:47)
[2019-02-18] MEDS: Finasteride 5 MG Tablet PO (08:47)
[2019-02-18] MEDS: guaiFENesin 1,200 MG Tablet 1200 MG PO (08:47)
[2019-02-18] MEDS: Enoxaparin 40 MG/0.4 ML Syringe SC (08:48)
[2019-02-18 11:15] VITALS: O2SAT 90
[2019-02-18 11:16] VITALS: O2SAT 90; O2SAT 94
[2019-02-18 11:31] LABS: Bedside Glucose 260 mg/dL (70-110)
--- NOTE | 2019-02-18 13:21 | DCINST_ITS ---
- Discharge Diagnoses Current Active Problems: Current Active and Chronic Problems (Last Reviewed 02/17/19 @ 08:05 by Dipesh Grey MD) Sepsis due to pneumonia (Acute) You will use the following diet at home:: Calorie/Carbohydrate Controlled (specify 1200, 1400, etc), Cardiac, Other Your food should be the consistency of: Regular Your liquids should be the consistency of: Regular/Thin Discharge Activity: - - Gradually return to normal activity. Avoid exposure to any strong smells such as bleach, cleaning products, strong colognes or perfumes, paint fumes and smoke of any kind. Avoid sudden exposure to cold air because this can cause bronchospasm. You may want to cover your mouth when you go outside in the winter. Avoid exposure to anyone who is sick with a cough or sore throat. Call your doctor if you observe: Fever of 101 or Higher, Shortness of breath, Dizziness, Fainting spells, Chest pain, Calf discomfort, - - Call your PCP if severe diarrhea ( > 5 stools a day), painful sores in the mouth, painful swallowing, rash or itching. Taking a probiotic such as Lactobacillus or Kefir can help with loose stools while taking antibiotics. Additional Instructions: 1. The Motrin has been effective in controlling the pleurisy pain in the R lateral chest so I think you should continue to take it evry 8 hours for the next 3-4 days and then you can change to every 8 hours as needed for pain. 2. Make sure to take all of the antibiotics. 3. Continue to use the incentive spirometer and the Acapella after you go home....for at least the next 5-7 days. Pending Tests on Discharge: blood culture final report....no growth in 48 hours Allergies/Adverse Reactions: Allergies acetaminophen [From Percocet] Allergy (Verified 02/16/19 19:12) Unknown hydrocodone [From Vicodin] Allergy (Verified 02/16/19 19:12) Unknown lactase [From Dairy Aid] Allergy (Verified 02/16/19 19:12) Unknown mold Allergy (Verified 02/16/19 19:12) Unknown oxycodone [From Percocet] Allergy (Verified 02/16/19 19:12) Unknown Penicillins Allergy (Verified 02/16/19 19:12) Unknown pollen extracts Allergy (Verified 02/16/19 19:12) Unknown rofecoxib [From Vioxx] Allergy (Verified 02/16/19 19:12) Unknown Sulfa (Sulfonamide Antibiotics) Allergy (Verified 02/16/19 19:12) Unknown Medications to take at Discharge Aspirin 81 mg PO DAILY 01/09/17 Cyclobenzaprine HCl 10 mg PO TID PRN 01/09/17 Lutein 20 mg PO QODAY 01/09/17 Metformin HCl [Glucophage] 500 mg PO BIDCM 01/09/17 Metoprolol(XL)Succ [Toprol Xl (Beta Kourtney)] 25 mg PO DAILY 01/09/17 Multivitamins,Therapeutic [Multivitamin] 1 tab PO DAILY 01/09/17 Ranolazine [Ranexa] 500 mg PO BID 01/09/17 Simvastatin [Zocor] 20 mg PO QHS 01/09/17 Tamsulosin HCl [Flomax] 0.4 mg PO BID 01/09/17 Tramadol HCl [Ultram] 50 mg PO BID PRN 01/09/17 Ubidecarenone [Co Q-10] 200 mg PO QODAY 01/09/17 finasteride 5 mg tablet 5 mg PO QDAY 06/07/18 gabapentin 100 mg capsule 100 mg PO BID cap 06/07/18 omeprazole 40 mg capsule,delayed release 40 mg PO QDAY 06/07/18 diclofenac 1 % topical gel 2 g TOPICAL BID g 12/30/18 Azithromycin [Zithromax] 500 mg PO DAILY #1 tablet 02/18/19 Cefdinir [Omnicef [equiv]] 300 mg PO Q12H #14 capsule 02/18/19 Guaifenesin [Mucinex] 1,200 mg PO BID #20 tablet 02/18/19 Ibuprofen [Motrin] 400 mg PO Q8 #30 tablet 02/18/19 The following prescriptions were given: Azithromycin [Zithromax] 500 mg PO DAILY #1 tablet Cefdinir [Omnicef [equiv]] 300 mg PO Q12H #14 capsule Ibuprofen [Motrin] 400 mg PO Q8 #30 tablet Guaifenesin [Mucinex] 1,200 mg PO BID #20 tablet Primary Care Physician: Jose Manuel Estevez MD [Primary Care Provider] - Please follow up with your Primary Care Physician in: 5-7 days Test Results: Test results from this visit will be discussed in further detail at your follow- up appointment, if applicable. Proposed Discharge Date: 02/18/19
--- NOTE | 2019-02-18 13:24 | PCM.DC.SUM ---
Discharge Date and Diagnosis Date of Admission: 02/16/19 Date of Discharge: 02/18/19 - Primary Discharge Diagnosis Active and Suspected Problems (Last Reviewed 02/17/19 @ 08:05 by Dipesh Grey MD) Sepsis due to community-acquired pneumonia (Acute) Community-acquired pneumonia left base Hyponatremia - Secondary Discharge Diagnosis Chronic Problems (Last Reviewed 02/17/19 @ 08:05 by Dipesh Grey MD) Essential hypertension (Chronic) Atherosclerosis of coronary artery of [place] heart without angina pectoris (Chronic) PCI-TYLER-Mid LCX w/ 3.0 x 32 mm Promus 01/10/2017 and PCI-TYLER w/ 3.0 x 12 mm Synergy Distal LCX overlapping it with the previous stent on 01/14/2017 History of coronary artery stent placement (Chronic 01/14/17) PCI-TYLER-Mid LCX w/ 3.0 x 32 mm Promus 01/10/2017 and PCI-TYLER w/ 3.0 x 12 mm Synergy Distal LCX overlapping it with the previous stent on 01/14/2017 Old inferior wall myocardial infarction (Chronic) DM II Asthma BPH Fibromyalgia GERD Obesity Hospital Course and Treatment Imaging Results: Clinical Impression(s) from Imaging Studies Abdomen/Pelvis CT 02/16/19 20:35 IMPRESSION: Asymmetric density left lung base; mild pneumonia versus asymmetric atelectasis. Several other chronic findings as above. Individualized dose optimization techniques were used for this CT. at 2123 Reported and signed by: Sylvain Andrade MD Electronically Signed: Sylvain Andrade, at 21:22 EDT Tel , Service support , Chest X-Ray 02/16/19 21:05 IMPRESSION: Left basilar opacity, pneumonia versus asymmetric atelectasis. 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 Vital signs at presentation to the emergency room were temp 99.9, pulse rate 101, blood pressure 162/69, respiratory rate 18 and he was 95% saturated on a 3 L nasal cannula. Temp later gelacio to 100.9 ?F. White blood cell count was 15 with a left shift. Hemoglobin and platelets were within normal limits. Sodium was mildly decreased at 134 but the remainder of the BMP was unremarkable. Bilirubin was elevated at 1.2 and the AST was 55 with an ALT of 63. Alkaline phosphatase was normal at 81. Chest x-ray was reported as left basilar opacity however it is a poor inspiratory film and the defect is much clearer on the CT scan of the abdomen pelvis. CT scan of the abdomen and pelvis showed an asymmetric density in the left lung base, hepatic steatosis and hepatomegaly, no evidence of acute appendicitis, no stomach or bowel distention, no focal inflammatory changes and sigmoid diverticulosis with no evidence of diverticulitis. He was admitted to the hospital with a diagnosis of sepsis secondary to community-acquired pneumonia and started on ceftriaxone and azithromycin. Blood cultures were drawn in the emergency department. Legionella and streptococcal antigens were negative. Respiratory panel was negative. Lateral chest wall pain with inspiration and coughing improved significantly with Motrin 400 mg p.o. every 8 hours. On 02/18/2019 he was feeling much better and requested to be discharged. He was ambulated in the gagnon on room air and his pulse ox was 90%. He denied shortness of breath. He had no nausea, vomiting or epigastric pain with Motrin. He was discharged home and instructed to follow-up with Dr. Jose Manuel Estevez in 5-7 days. He will need a chest x-ray to document clearance in 4-6 weeks. PHYSICAL EXAM: GENERAL: alert, oriented X 3, Cooperative, NAD, walked in the halls twice today and denies SOB, 90% on RA with ambulation ORAL: moist mucosa, no mucosal lesions NECK: No JVD, supple, trachea midline LUNGS: much better air exchange in the bases today, the right lung is CTA and there are still some coarse crackles in the left base, no wheezing HEART: RRR, Normal S1 and S2, no rub, no gallop ABDOMEN: soft, NT, ND, BS present, no guarding with palpation EXTREMITIES: no edema, no cyanosis, no calf tenderness SKIN: No rashes, no breakdown NEUROLOGIC: no focal neurologic deficits PSYCH: appropriate, normal affect, pleasant This note was generated with [employer] dictation software. It may contain incorrect words, spelling, and punctuation that were not noted in checking the note before signing. - Physical Exam Vital Signs Temp Pulse Resp BP Pulse Ox 98.3 F 77 18 135/67 H 94 02/18/19 08:45 02/18/19 08:46 02/18/19 08:45 02/18/19 08:45 02/18/19 11:16 Oxygen Flow Rate (L/min) 2 Oxygen Delivery Method Room Air Weight: 254 lb 10.142 oz Body Mass Index (BMI) 37.0 Intake and Output for Last 24 Hours 02/16/19 02/17/19 02/18/19 23:59 23:59 23:59 Intake Total 2987 / 2987 550 / 550 Output Total 100 / 100 Balance 2887 / 2887 550 / 550 Microbiology Past 72 Hours 02/16/19 20:35 Streptococcus pneumoniae Antigen (M - Final Urine, Clean Catch 02/16/19 20:35 Legionella Antigen - Final Urine, Clean Catch POC Glucose 02/18/19 02/18/19 02/17/19 11:20 06:35 22:10 POC Glucose 260 H 189 H 224 H 02/17/19 16:13 POC Glucose 238 H Discharge Activity: - - Gradually return to normal activity. Avoid exposure to any strong smells such as bleach, cleaning products, strong colognes or perfumes, paint fumes and smoke of any kind. Avoid sudden exposure to cold air because this can cause bronchospasm. You may want to cover your mouth when you go outside in the winter. Avoid exposure to anyone who is sick with a cough or sore throat. Call your doctor if you observe: Fever of 101 or Higher, Shortness of breath, Dizziness, Fainting spells, Chest pain, Calf discomfort, - - Call your PCP if severe diarrhea ( > 5 stools a day), painful sores in the mouth, painful swallowing, rash or itching. Taking a probiotic such as Lactobacillus or Kefir can help with loose stools while taking antibiotics. Home Medications: Medications to take at Discharge Aspirin 81 mg PO DAILY 01/09/17 Cyclobenzaprine HCl 10 mg PO TID PRN 01/09/17 Lutein 20 mg PO QODAY 01/09/17 Metformin HCl [Glucophage] 500 mg PO BIDCM 01/09/17 Metoprolol(XL)Succ [Toprol Xl (Beta Kourtney)] 25 mg PO DAILY 01/09/17 Multivitamins,Therapeutic [Multivitamin] 1 tab PO DAILY 01/09/17 Ranolazine [Ranexa] 500 mg PO BID 01/09/17 Simvastatin [Zocor] 20 mg PO QHS 01/09/17 Tamsulosin HCl [Flomax] 0.4 mg PO BID 01/09/17 Tramadol HCl [Ultram] 50 mg PO BID PRN 01/09/17 Ubidecarenone [Co Q-10] 200 mg PO QODAY 01/09/17 finasteride 5 mg tablet 5 mg PO QDAY 06/07/18 gabapentin 100 mg capsule 100 mg PO BID cap 06/07/18 omeprazole 40 mg capsule,delayed release 40 mg PO QDAY 06/07/18 diclofenac 1 % topical gel 2 g TOPICAL BID g 12/30/18 Azithromycin [Zithromax] 500 mg PO DAILY #1 tablet 02/18/19 Cefdinir [Omnicef [equiv]] 300 mg PO Q12H #14 capsule 02/18/19 Guaifenesin [Mucinex] 1,200 mg PO BID #20 tablet 02/18/19 Ibuprofen [Motrin] 400 mg PO Q8 #30 tablet 02/18/19 Following Prescrptions Were Given to Patient: Azithromycin [Zithromax] 500 mg PO DAILY #1 tablet Cefdinir [Omnicef [equiv]] 300 mg PO Q12H #14 capsule Ibuprofen [Motrin] 400 mg PO Q8 #30 tablet Guaifenesin [Mucinex] 1,200 mg PO BID #20 tablet Primary Care Physician: Jose Manuel Estevez MD [Primary Care Provider] - Please follow up with your Primary Care Physician in: 5-7 days Disposition: Home Minutes spent on discharge:: 30 Patient Condition:: Good Medical Necessity - Tobacco Use Smoking Status: Former smoker Tobacco Use: Non-smoker Meaningful Use Info Meaningful Use Diagnoses (Choose all that apply): None applicable Code Visit Inpatient E&M: 77733 Disch Hosp
--- NOTE | 2019-02-18 13:28 | DS.PCM_ITS ---
Discharge Date and Diagnosis Date of Admission: 02/16/19 Date of Discharge: 02/18/19 - Primary Discharge Diagnosis Active and Suspected Problems (Last Reviewed 02/17/19 @ 08:05 by Dipesh Grey MD) Sepsis due to community-acquired pneumonia (Acute) Community-acquired pneumonia left base Hyponatremia - Secondary Discharge Diagnosis Chronic Problems (Last Reviewed 02/17/19 @ 08:05 by Dipesh Grey MD) Essential hypertension (Chronic) Atherosclerosis of coronary artery of [place] heart without angina pectoris (Chronic) PCI-TYLER-Mid LCX w/ 3.0 x 32 mm Promus 01/10/2017 and PCI-TYLER w/ 3.0 x 12 mm Synergy Distal LCX overlapping it with the previous stent on 01/14/2017 History of coronary artery stent placement (Chronic 01/14/17) PCI-TYLER-Mid LCX w/ 3.0 x 32 mm Promus 01/10/2017 and PCI-TYLER w/ 3.0 x 12 mm Synergy Distal LCX overlapping it with the previous stent on 01/14/2017 Old inferior wall myocardial infarction (Chronic) DM II Asthma BPH Fibromyalgia GERD Obesity Hospital Course and Treatment Imaging Results: Clinical Impression(s) from Imaging Studies Abdomen/Pelvis CT 02/16/19 20:35 IMPRESSION: Asymmetric density left lung base; mild pneumonia versus asymmetric atelectasis. Several other chronic findings as above. Individualized dose optimization techniques were used for this CT. at 2123 Reported and signed by: Sylvain Andrade MD Electronically Signed: Sylvain Andrade, at 21:22 EDT Tel , Service support , Chest X-Ray 02/16/19 21:05 IMPRESSION: Left basilar opacity, pneumonia versus asymmetric atelectasis. at 2133 Reported and signed by: Sylvain Andrade MD Electronically Signed: Sylvain Andrade, at 21:32 EDT Tel , Service support , Laboratory Results - last 24 hr 02/17/19 02/17/19 02/18/19 16:13 22:10 06:35 POC Glucose 238 H 224 H 189 H 02/18/19 11:20 POC Glucose 260 H Microbiology 02/16/19 20:35 Urine, Clean Catch Streptococcus pneumoniae Antigen (M - Final 02/16/19 20:35 Urine, Clean Catch Legionella Antigen - Final none Operations: None Procedures: None Summary of Care Provided: The patient is a 78-year-old male with a past medical history of coronary artery disease, hypertension, old inferior wall NV, asthma, BPH fibromyalgia, GERD, obesity and peripheral neuropathy, diabetes mellitus type 2 who presented to the emergency department at [facility] on 02/16/2019 complaining of left upper quadrant abdominal pain, chills, decreased appetite and nausea with no emesis. Vital signs at presentation to the emergency room were temp 99.9, pulse rate 101, blood pressure 162/69, respiratory rate 18 and he was 95% saturated on a 3 L nasal cannula. Temp later gelacio to 100.9 ?F. White blood cell count was 15 with a left shift. Hemoglobin and platelets were within normal limits. Sodium was mildly decreased at 134 but the remainder of the BMP was unremarkable. Bilirubin was elevated at 1.2 and the AST was 55 with an ALT of 63. Alkaline phosphatase was normal at 81. Chest x-ray was reported as left basilar opacity however it is a poor inspiratory film and the defect is much clearer on the CT scan of the abdomen pelvis. CT scan of the abdomen and pelvis showed an asymmetric density in the left lung base, hepatic steatosis and hepatomegaly, no evidence of acute appendicitis, no stomach or bowel distention, no focal inflammatory changes and sigmoid diverticulosis with no evidence of diverticulitis. He was admitted to the hospital with a diagnosis of sepsis secondary to community-acquired pneumonia and started on ceftriaxone and azit hromycin. Blood cultures were drawn in the emergency department. Legionella and streptococcal antigens were negative. Respiratory panel was negative. Lateral chest wall pain with inspiration and coughing improved significantly with Motrin 400 mg p.o. every 8 hours. On 02/18/2019 he was feeling much better and requested to be discharged. He was ambulated in the gagnon on room air and his pulse ox was 90%. He denied shortness of breath. He had no nausea, vomiting or epigastric pain with Motrin. He was discharged home and instructed to follow-up with Dr. Jose Manuel Estevez in 5-7 days. He will need a chest x-ray to document clearance in 4-6 weeks. PHYSICAL EXAM: GENERAL: alert, oriented X 3, Cooperative, NAD, walked in the halls twice today and denies SOB, 90% on RA with ambulation ORAL: moist mucosa, no mucosal lesions NECK: No JVD, supple, trachea midline LUNGS: much better air exchange in the bases today, the right lung is CTA and there are still some coarse crackles in the left base, no wheezing HEART: RRR, Normal S1 and S2, no rub, no gallop ABDOMEN: soft, NT, ND, BS present, no guarding with palpation EXTREMITIES: no edema, no cyanosis, no calf tenderness SKIN: No rashes, no breakdown NEUROLOGIC: no focal neurologic deficits PSYCH: appropriate, normal affect, pleasant This note was generated with Nagi dictation software. It may contain incorrect words, spelling, and punctuation that were not noted in checking the note before signing. - Physical Exam Vital Signs Temp Pulse Resp BP Pulse Ox 98.3 F 77 18 135/67 H 94 02/18/19 08:45 02/18/19 08:46 02/18/19 08:45 02/18/19 08:45 02/18/19 11:16 Oxygen Flow Rate (L/min) 2 Oxygen Delivery Method Room Air Weight: 254 lb 10.142 oz Body Mass Index (BMI) 37.0 Intake and Output for Last 24 Hours 02/16/19 02/17/19 02/18/19 23:59 23:59 23:59 Intake Total 2987 / 2987 550 / 550 Output Total 100 / 100 Balance 2887 / 2887 550 / 550 Microbiology Past 72 Hours 02/16/19 20:35 Streptococcus pneumoniae Antigen (M - Final Urine, Clean Catch 02/16/19 20:35 Legionella Antigen - Final Urine, Clean Catch POC Glucose 02/18/19 02/18/19 02/17/19 11:20 06:35 22:10 POC Glucose 260 H 189 H 224 H 02/17/19 16:13 POC Glucose 238 H Discharge Activity: - - Gradually return to normal activity. Avoid exposure to any strong smells such as bleach, cleaning products, strong colognes or perfumes, paint fumes and smoke of any kind. Avoid sudden exposure to cold air because this can cause bronchospasm. You may want to cover your mouth when you go outside in the winter. Avoid exposure to anyone who is sick with a cough or sore throat. Call your doctor if you observe: Fever of 101 or Higher, Shortness of breath, Dizziness, Fainting spells, Chest pain, Calf discomfort, - - Call your PCP if severe diarrhea ( > 5 stools a day), painful sores in the mouth, painful swallowing, rash or itching. Taking a probiotic such as Lactobacillus or Kefir can help with loose stools while taking antibiotics. Home Medications: Medications to take at Discharge Aspirin 81 mg PO DAILY 01/09/17 Cyclobenzaprine HCl 10 mg PO TID PRN 01/09/17 Lutein 20 mg PO QODAY 01/09/17 Metformin HCl [Glucophage] 500 mg PO BIDCM 01/09/17 Metoprolol(XL)Succ [Toprol Xl (Beta Kourtney)] 25 mg PO DAILY 01/09/17 Multivitamins,Therapeutic [Multivitamin] 1 tab PO DAILY 01/09/17 Ranolazine [Ranexa] 500 mg PO BID 01/09/17 Simvastatin [Zocor] 20 mg PO QHS 01/09/17 Tamsulosin HCl [Flomax] 0.4 mg PO BID 01/09/17 Tramadol HCl [Ultram] 50 mg PO BID PRN 01/09/17 Ubidecarenone [Co Q-10] 200 mg PO QODAY 01/09/17 finasteride 5 mg tablet 5 mg PO QDAY 06/07/18 gabapentin 100 mg capsule 100 mg PO BID cap 06/07/18 omeprazole 40 mg capsule,delayed release 40 mg PO QDAY 06/07/18 diclofenac 1 % topical gel 2 g TOPICAL BID g 12/30/18 Azithromycin [Zithromax] 500 mg PO DAILY #1 tablet 02/18/19 Cefdinir [Omnicef [equiv]] 300 mg PO Q12H #14 capsule 02/18/19 Guaifenesin [Mucinex] 1,200 mg PO BID #20 tablet 02/18/19 Ibuprofen [Motrin] 400 mg PO Q8 #30 tablet 02/18/19 Following Prescrptions Were Given to Patient: Azithromycin [Zithromax] 500 mg PO DAILY #1 tablet Cefdinir [Omnicef [equiv]] 300 mg PO Q12H #14 capsule Ibuprofen [Motrin] 400 mg PO Q8 #30 tablet Guaifenesin [Mucinex] 1,200 mg PO BID #20 tablet Primary Care Physician: Jose Manuel Estevez MD [Primary Care Provider] - Please follow up with your Primary Care Physician in: 5-7 days Disposition: Home Minutes spent on discharge:: 30 Patient Condition:: Good Medical Necessity - Tobacco Use Smoking Status: Former smoker Tobacco Use: Non-smoker Meaningful Use Info Meaningful Use Diagnoses (Choose all that apply): None applicable Code Visit Inpatient E&M: 80169 Disch Hosp
[2019-02-18 14:05] VITALS: BP 139/69; PULSE 75; RESP 16; TEMP 36.4; O2SAT 97
--- NOTE | 2019-02-19 15:33 | CASEMGMT ---
SANDIP MARROQUIN Discharge Follow-up Phone Call: NICOLEThomas: Paul Strata: 3 Call Date: 02/19/19 Discharge Date: 02/18/19 Time of Call:1530 Duration: 5 min Admitting Diagnosis: Sepsis secondary to community acquired pneumonia SANDIP MARROQUIN completed follow-up phone call after recent hospitalization. Patient states he didn't sleep well but felt better after he ate today. Patient had appt with eye doctor today. Patient had no questions regarding discharge instructions. Patient was able to pickup prescriptions without any issues. Patient has follow-up appt scheduled with PCP on 02/27/19. Patient denied and further questions or concerns.
== END 2019-02-18 14:42 | disposition home or self-care (01) | DRG 871 ==
LOC: ED 19:44 → MS3 22:32
PROVIDERS: Admitting Provider Hospitalist; Emergency Provider Emergency Medicine; Family Provider Family Medicine; PCP Family Medicine; Visit Provider Internal Medicine
DX: A41.9 Sepsis, unspecified organism (principal); J18.9 Pneumonia, unspecified organism; E87.1 Hypo-osmolality and hyponatremia; I25.10 Atherosclerotic heart disease of native coronary artery without angina pectoris; Z95.5 Presence of coronary angioplasty implant and graft; M79.7 Fibromyalgia; N40.0 Benign prostatic hyperplasia without lower urinary tract symptoms; K21.9 Gastro-esophageal reflux disease without esophagitis; I25.2 Old myocardial infarction; J45.909 Unspecified asthma, uncomplicated; I10 Essential (primary) hypertension; E66.9 Obesity, unspecified; Z68.37 Body mass index [BMI] 37.0-37.9, adult
CPT/HCPCS: 36415; 71045; 74177; 80048; 80053; 81001; 82962; 83605; 83690; 84484; 85025; 87040; 87449; 87633; 93005; 94667; 97162; 97166; 97530; 99284; J7030; Q9967; A4216; J0696; J2405

== ENCOUNTER → 2019-04-02 | Outpatient (CLI) | payer MEDICARE, OTHER, SELFPAY ==
[2017-01-10 11:37] VITALS: BMI 37.9
[2019-02-16 23:58] VITALS: BMI 37.0
--- NOTE | 2019-04-02 08:05 | RAD_ITS ---
STUDY: X-RAY CHEST REASON FOR EXAM: Male, 78 years old. Chest pain TECHNIQUE: PA and lateral views of the chest COMPARISON: X-ray chest February 16, 2018 FINDINGS: The lungs are clear. There are no pleural effusions. There is no pneumothorax. The heart is normal in size. The visualized osseous structures are within normal limits. Right shoulder arthroplasty present. RAD/Chest PA and Lateral IMPRESSION: No acute thoracic pathology. Electronically Signed: Boris Byrne, at 21:36 EDT Tel , Service support ,
[2019-04-02 08:31] LABS: AST(SGOT) 41 U/L (15-37); Alanine Aminotransfer ALT/SGPT 50 U/L (16-61); Albumin, Serum 3.7 g/dL (3.2-5.0); Alkaline Phosphatase 68 U/L (45-117); Bilirubin, Direct 0.21 mg/dL (0.00-0.30); Cholesterol 125 mg/dL (200); Globulin 3.4 g/dL (2.2-4.2); High Density Lipoprotein 52 mg/dL; Protein, Total 7.1 g/dL (6.4-8.2); Triglycerides 155 mg/dL; Very Low Density Lipoprotein 31 mg/dL (5-40)
== END | disposition home or self-care (01) ==
LOC: LAB 07:52
PROVIDERS: Family Provider Family Medicine; PCP Family Medicine; Referring Provider Internal Medicine Cardiovascular Disease; Visit Provider Internal Medicine Cardiovascular Disease
DX: I25.10 Atherosclerotic heart disease of native coronary artery without angina pectoris (principal); I10 Essential (primary) hypertension; J18.9 Pneumonia, unspecified organism; Z95.5 Presence of coronary angioplasty implant and graft
CPT/HCPCS: 36415; 71046; 80061; 80076

== ENCOUNTER → 2019-06-17 | Outpatient (CLI) | payer MEDICARE, OTHER, SELFPAY ==
[2017-01-10 11:37] VITALS: BMI 37.9
[2019-02-16 23:58] VITALS: BMI 37.0
== END | disposition home or self-care (01) ==
LOC: LABSPEC 10:30
PROVIDERS: Family Provider Family Medicine; PCP Family Medicine; Referring Provider Dermatology Pediatric Dermatology; Visit Provider Dermatology Pediatric Dermatology
DX: K61.0 Anal abscess (principal); L02.31 Cutaneous abscess of buttock
CPT/HCPCS: 87070; 87077; 87186; 87205

== ENCOUNTER → 2019-06-25 | Outpatient (CLI) | payer MEDICARE, OTHER, SELFPAY ==
[2017-01-10 11:37] VITALS: BMI 37.9
[2019-02-16 23:58] VITALS: BMI 37.0
--- NOTE | 2019-06-25 11:06 | RAD_ITS ---
STUDY: X-RAY - RIGHT KNEE REASON FOR EXAM: Male, 78 years old. Lower back pain, bilateral hip and knee pain worse on the right. TECHNIQUE: 4 view(s) of the knee. COMPARISON: None. FINDINGS: [id number] knee joint effusion. Periarticular soft tissues unremarkable. Osteopenia. Patellofemoral compartment moderate joint margin osteophytic lipping. Lateral compartment moderate joint margin osteophytic lipping without apparent joint space narrowing. Mild meniscal calcifications. Medial compartment severe joint space narrowing, moderate joint margin osteophytic lipping, apparent partial [id number] articulation with blunting of the articular surfaces. RAD/Knee 4 or More Views IMPRESSION: Tricompartmental DJD with severe degenerative changes of the medial compartment in particular. Effusion. Electronically Signed: Yemi Cerrato MD at 11:45 EDT Tel , Service support ,
--- NOTE | 2019-06-25 11:06 | RAD_ITS ---
STUDY: X-RAY - LUMBAR SPINE REASON FOR EXAM: Male, 78 years old. Lower back pain, bilateral hip and knee pain worse on the right TECHNIQUE: 5 view(s) of the lumbar spine were obtained. COMPARISON: None FINDINGS: No significant scoliosis. Normal lumbar lordosis. Partially bridging anterior osteophytes at multiple levels of the lumbar spine most prominent at L1-L2, L2-L3, L3-L4. Moderate disc narrowing with endplate degenerative changes at L1-L2, L2-L3, L4-L5 and L5-S1. Moderate severe disc narrowing with more prominent degenerative features at L3-L4. Multilevel facet arthropathy, with moderately severe facet hypertrophy between L2 and S1, more mild at L1-L2. No acute intra-abdominal process is evident, in limited evaluation. Prior cholecystectomy. 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 Electronically Signed: Yemi Cerrato MD at 11:52 EDT Tel , Service support ,
--- NOTE | 2019-06-25 11:06 | RAD_ITS ---
STUDY: X-RAY - PELVIS AND RIGHT HIP REASON FOR EXAM: Male, 78 years old. Lower back pain, bilateral hip and knee pain worse on the right. TECHNIQUE: 3 views of the pelvis and hip. COMPARISON: None. FINDINGS: Prominent multilevel lumbar degenerative disc disease with disc space narrowing, disc marginal osteophytosis, facet hypertrophy. Minimal degenerative features of the SI joints. Left hip, small subcortical cyst at the superior acetabular margin, minimal acetabular margin osteophytic spurring. Right hip, mild joint space narrowing compared to the left, mild superior acetabular margin osteophytic spurring and mild sclerosis of the superior acetabular articular surface. Periarticular soft tissues normal. RAD/HIP, UNI W/ Pelvis 2-3 Views IMPRESSION: Prominent multilevel lumbar spondylosis. There are relatively mild degenerative features of the joints bilaterally, slightly more prominent on the right. Electronically Signed: Yemi Cerrato MD at 11:50 EDT Tel , Service support ,
== END | disposition home or self-care (01) ==
LOC: HPRAD 11:06
PROVIDERS: Family Provider Family Medicine; PCP Family Medicine; Referring Provider Orthopaedic Surgery; Visit Provider Orthopaedic Surgery
DX: M25.561 Pain in right knee (principal); M25.551 Pain in right hip; M79.604 Pain in right leg; M54.5 Low back pain
CPT/HCPCS: 72110; 73502; 73564

== ENCOUNTER → 2019-09-05 | Outpatient (CLI) | payer MEDICARE, OTHER, SELFPAY ==
[2017-01-10 11:37] VITALS: BMI 37.9
[2019-08-11 14:20] VITALS: BMI 35.6
[2019-09-05 12:29] LABS: Absolute Lymphocyte Count 2.07 X10^3/uL (0.83-4.51); Basophil# 0.04 X10^3/uL; Basophil% 0.6 % (0-1); Eosinophil# 0.28 X10^3/uL; Eosinophils% 3.9 % (0-5); Hematocrit 45.5 % (40-54); Hemoglobin 14.8 g/dL (13.0-16.5); Lymphocyte # 2.07 X10^3/ul (4.0); Lymphocyte % 28.6 % (19-41); Mean Corp Hgb Conc 32.5 g/dL (32-36); Mean Corpuscular Volume 89.2 fL (80-94); Monocyte# 0.84 X10^3/uL; Monocyte% 11.6 % (0-10); NRBC Flagged by Analyzer 0 % (0-5); Neutrophil # 3.99 X10^3/uL (2.7-7.7); Neutrophil % 55.2 % (47-70); Platelet Count 186 K/mm3 (150-450); RBC Distribution Width CV 13.6 % (11.6-14.6); RBC Distribution Width SD 44.2 fl (35.1-43.9); White Blood Count 7.2 K/mm3 (4.4-11.0)
[2019-09-05 12:48] LABS: Vitamin B12 644 pg/mL (211-911)
[2019-09-05 13:05] LABS: ALB/GLOB Ratio 1.1 RATIO (0.9-2.4); AST(SGOT) 45 U/L (15-37); Alanine Aminotransfer ALT/SGPT 56 U/L (16-61); Alkaline Phosphatase 70 U/L (45-117); Anion Gap 6 (5-15); BUN 18 mg/dL (7-18); BUN/Creat Ratio 17.5 RATIO (10-20); Calcium,Total 9.6 mg/dL (8.5-10.1); Chloride 104 mmol/L (98-107); Creatinine, Serum 1.03 mg/dL (0.70-1.30); EST Glomerular Filtration Rate 74 mL/min (>60); Est Glom Filt Rate - Afr Amer 90 mL/min (>60); Globulin 3.5 g/dL (2.2-4.2); Glucose 147 mg/dL (74-106); Potassium 4.5 mmol/L (3.5-5.1); Protein, Total 7.5 g/dL (6.4-8.2); Sodium Level 138 mmol/L (136-145); Thyroid Stim Hormone (TSH) 3.17 uIU/mL (0.358-3.74)
== END | disposition home or self-care (01) ==
LOC: BFHLAB 10:19
PROVIDERS: Family Provider Family Medicine; PCP Family Medicine; Visit Provider Family Medicine
DX: E11.9 Type 2 diabetes mellitus without complications (principal); I10 Essential (primary) hypertension; R79.89 Other specified abnormal findings of blood chemistry
CPT/HCPCS: 36415; 80053; 82607; 84443; 85025

== ENCOUNTER → 2019-10-15 09:20 | Outpatient (CLI) | payer MEDICARE, OTHER, SELFPAY ==
[2017-01-10 11:37] VITALS: BMI 37.9
[2019-08-11 14:20] VITALS: BMI 35.6
--- NOTE | 2019-10-15 09:22 | STEWCON_ITS ---
Reason For Study: CAD, Chest Pain Stress Results Protocol: Dobutamine Stress Echo With Definity Maximum Predicted HR: 141 bpm Target HR: 120 bpm % Maximum Predicted HR: 93 % DurationHeart Rate Stage (mm:ss) (bpm) BP Comment Baseline 85 141/77No Chest Pain; 7 ML Diluted Definity Given DSE 10 MCG 3:17 86 143/80No Chest Pain DSE 20 MCG 5:08 131 144/57No Chest Pain Recovery 90 141/78No Chest Pain Stress Duration: 8:25 mm:ss Maximum Stress HR: 131 bpm METS: 1 Baseline Echocardiogram Findings The estimated ejection fraction is 65 %. Stress Echo Wall motion Data Resting WM Intermediate WM Stress WM Resting Wall Motion Wall Motion Stress No regional wall motion No regional wall motion abnormalities noted. abnormalities noted. EKG Data The baseline ECG displays normal sinus rhythm. The patient was titrated from 10 mcg to a maximum of 20 mcg of dobutamine during the stress. The maximum heart rate attained was 133 beats per minute. This was 94% of maximum predicted heart rate. During dobutamine infusion, there were no ST or T wave changes noted to suggest ischemia. No clinical angina was noted. Interpretation Summary The estimated ejection fraction is 65 %. Normal, adequate, dobutamine echocardiogram. Negative for ischemia by EKG and echocardiographic criteria. No anginal symptoms noted. Rare PVC noted. Appropriate blood pressure response to dobutamine. Final LVEF of 75%. Test terminated due to the attainment of target heart rate. Decreased sensitivity due to poor echo windows requiring Definity injection. Patient tolerated the procedure well. No complications. The study was technically difficult. Contrast injection was performed. Ordering Physician: Tanner Tam M.D. Referring Physician: Jose Manuel Estevez M.D. Performed By: Anthony Akers RCS
== END ==
PROVIDERS: Family Provider Family Medicine; PCP Family Medicine; Referring Provider Internal Medicine Cardiovascular Disease; Visit Provider Internal Medicine Cardiovascular Disease
DX: I25.10 Atherosclerotic heart disease of native coronary artery without angina pectoris (principal); I25.2 Old myocardial infarction; R07.89 Other chest pain
CPT/HCPCS: 93017; 93350; J7040; Q9957; A4216; C8928

== ENCOUNTER → 2020-07-09 09:49 | Outpatient (CLI) | payer MEDICARE, SELFPAY ==
[2017-01-10 11:37] VITALS: BMI 37.9
[2020-02-23 12:47] VITALS: BMI 35.2
[2020-07-09 12:02] LABS: Absolute Lymphocyte Count 1.75 X10^3/uL (0.83-4.51); Absolute Neutrophil Count 3.4 X10^3/uL (2.0-7.7); Basophil# 0.04 X10^3/uL; Basophil% 0.6 % (0-1); Eosinophil# 0.33 X10^3/uL; Eosinophils% 5.3 % (0-5); Hematocrit 44.7 % (40-54); Hemoglobin 14.3 g/dL (13.0-16.5); Lymphocyte # 1.75 X10^3/ul (4.0); Mean Corpuscular Hgb 28.6 pg (27.0-32.0); Mean Corpuscular Volume 89.4 fL (80-94); Mean Platelet Vol. 10.6 fl (6.2-12.0); Monocyte# 0.77 X10^3/uL; Monocyte% 12.3 % (0-10); NRBC Flagged by Analyzer 0 % (0-5); Neutrophil # 3.35 X10^3/uL (2.7-7.7); Neutrophil % 53.6 % (47-70); Platelet Count 162 K/mm3 (150-450); RBC Distribution Width CV 13.4 % (11.6-14.6); RBC Distribution Width SD 43.7 fl (35.1-43.9); White Blood Count 6.3 K/mm3 (4.4-11.0)
[2020-07-09 12:30] LABS: ALB/GLOB Ratio 1.1 RATIO (0.9-2.4); AST(SGOT) 74 U/L (15-37); Alanine Aminotransfer ALT/SGPT 83 U/L (16-61); Albumin, Serum 3.7 g/dL (3.2-5.0); Alkaline Phosphatase 77 U/L (45-117); Anion Gap 5 (5-15); BUN 16 mg/dL (7-18); BUN/Creat Ratio 15.1 RATIO (10-20); Calcium,Total 9.2 mg/dL (8.5-10.1); Chloride 101 mmol/L (98-107); Creatinine, Serum 1.06 mg/dL (0.70-1.30); EST Glomerular Filtration Rate 72 mL/min (>60); Est Glom Filt Rate - Afr Amer 87 mL/min (>60); Globulin 3.5 g/dL (2.2-4.2); Glucose 189 mg/dL (74-106); Potassium 4.6 mmol/L (3.5-5.1); Protein, Total 7.2 g/dL (6.4-8.2); Sodium Level 137 mmol/L (136-145); Thyroid Stim Hormone (TSH) 2.78 uIU/mL (0.358-3.74)
== END ==
PROVIDERS: PCP Family Medicine; Visit Provider Family Medicine
DX: E11.9 Type 2 diabetes mellitus without complications (principal); I10 Essential (primary) hypertension; E78.5 Hyperlipidemia, unspecified; E03.9 Hypothyroidism, unspecified
CPT/HCPCS: 36415; 80053; 84439; 84443; 85025

== ENCOUNTER → 2021-01-05 12:23 | Outpatient (CLI) | payer MEDICARE, SELFPAY ==
[2017-01-10 11:37] VITALS: BMI 37.9
[2021-01-05 10:30] VITALS: BMI 36.9
[2021-01-05 15:12] LABS: Absolute Lymphocyte Count 2.18 X10^3/uL (0.83-4.51); Absolute Neutrophil Count 3.8 X10^3/uL (2.0-7.7); Basophil# 0.04 X10^3/uL; Basophil% 0.6 % (0-1); Eosinophil# 0.32 X10^3/uL; Eosinophils% 4.5 % (0-5); Hematocrit 47.1 % (40-54); Hemoglobin 14.7 g/dL (13.0-16.5); Lymphocyte # 2.18 X10^3/ul (4.0); Lymphocyte % 30.9 % (19-41); Mean Corp Hgb Conc 31.2 g/dL (32-36); Mean Corpuscular Hgb 28.2 pg (27.0-32.0); Mean Corpuscular Volume 90.4 fL (80-94); Mean Platelet Vol. 10.6 fl (6.2-12.0); Monocyte# 0.75 X10^3/uL; Monocyte% 10.6 % (0-10); NRBC Flagged by Analyzer 0 % (0-5); Neutrophil # 3.75 X10^3/uL (2.7-7.7); Neutrophil % 53.3 % (47-70); Platelet Count 174 K/mm3 (150-450); RBC Distribution Width CV 13.9 % (11.6-14.6); RBC Distribution Width SD 45.9 fl (35.1-43.9); Red Blood Count 5.21 M/mm3 (4.6-6.2); White Blood Count 7.1 K/mm3 (4.4-11.0)
[2021-01-05 15:19] LABS: Vitamin D,25 Hydroxy 23.7 ng/mL
[2021-01-05 15:23] LABS: Hemoglobin A1c 8.2 % (3.8-5.6)
[2021-01-05 15:33] LABS: ALB/GLOB Ratio 1.1 RATIO (0.9-2.4); AST(SGOT) 111 U/L (15-37); Alanine Aminotransfer ALT/SGPT 105 U/L (16-61); Alkaline Phosphatase 92 U/L (45-117); Anion Gap 7 (5-15); BUN 17 mg/dL (7-18); BUN/Creat Ratio 16.7 RATIO (10-20); Calcium,Total 9.6 mg/dL (8.5-10.1); Chloride 103 mmol/L (98-107); Cholesterol 153 mg/dL (200); Creatinine, Serum 1.02 mg/dL (0.70-1.30); EST Glomerular Filtration Rate 75 mL/min (>60); Est Glom Filt Rate - Afr Amer 90 mL/min (>60); Globulin 3.6 g/dL (2.2-4.2); Glucose 193 mg/dL (74-106); High Density Lipoprotein 52 mg/dL; PSA,Total - Annual Screen 0.26 ng/mL (0.00-4.00); Potassium 4.7 mmol/L (3.5-5.1); Protein, Total 7.6 g/dL (6.4-8.2); Sodium Level 137 mmol/L (136-145); Thyroid Stim Hormone (TSH) 2.81 uIU/mL (0.358-3.74); Triglycerides 178 mg/dL; Very Low Density Lipoprotein 36 mg/dL (5-40)
[2021-01-06 09:05] LABS: Erythrocyte Sedimentation Rate 24 mm/hr (0-20)
[2021-01-06 09:07] LABS: CRP 7.51 mg/L (0.0-3.0)
== END ==
PROVIDERS: PCP Internal Medicine; Referring Provider Internal Medicine; Visit Provider Internal Medicine
DX: E55.9 Vitamin D deficiency, unspecified (principal); E11.9 Type 2 diabetes mellitus without complications; I10 Essential (primary) hypertension; R06.09 Other forms of dyspnea; I25.10 Atherosclerotic heart disease of native coronary artery without angina pectoris; R51.9 Headache, unspecified; N40.0 Benign prostatic hyperplasia without lower urinary tract symptoms; Z12.5 Encounter for screening for malignant neoplasm of prostate
CPT/HCPCS: 36415; 80053; 80061; 82306; 83036; 84153; 84443; 85025; 85652; 86140; G0103

== ENCOUNTER → 2021-01-20 15:11 | Outpatient (CLI) | payer MEDICARE, SELFPAY ==
[2017-01-10 11:37] VITALS: BMI 37.9
[2021-01-17 11:06] VITALS: BMI 37.0
[2021-01-20 16:56] LABS: Erythrocyte Sedimentation Rate 14 mm/hr (0-20)
[2021-01-20 16:57] LABS: Absolute Neutrophil Count 3.7 X10^3/uL (2.0-7.7); Basophil# 0.04 X10^3/uL; Basophil% 0.6 % (0-1); Eosinophil# 0.32 X10^3/uL; Eosinophils% 4.7 % (0-5); Hematocrit 42.7 % (40-54); Hemoglobin 13.7 g/dL (13.0-16.5); Lymphocyte % 29.6 % (19-41); Mean Corp Hgb Conc 32.1 g/dL (32-36); Mean Corpuscular Hgb 28.9 pg (27.0-32.0); Mean Corpuscular Volume 90.1 fL (80-94); Mean Platelet Vol. 10.3 fl (6.2-12.0); Monocyte# 0.68 X10^3/uL; Monocyte% 10.1 % (0-10); NRBC Flagged by Analyzer 0 % (0-5); Neutrophil # 3.69 X10^3/uL (2.7-7.7); Neutrophil % 54.6 % (47-70); Platelet Count 149 K/mm3 (150-450); RBC Distribution Width CV 13.8 % (11.6-14.6); RBC Distribution Width SD 44.9 fl (35.1-43.9); Red Blood Count 4.74 M/mm3 (4.6-6.2); White Blood Count 6.8 K/mm3 (4.4-11.0)
[2021-01-20 16:58] LABS: CRP 7.07 mg/L (0.0-3.0)
== END ==
PROVIDERS: PCP Internal Medicine; Referring Provider Ophthalmology; Visit Provider Ophthalmology
DX: R51.9 Headache, unspecified (principal)
CPT/HCPCS: 36415; 85025; 85652; 86140

== ENCOUNTER 2021-02-02 05:21 | Day surgery (SDC) | payer MEDICARE, SELFPAY ==
[2017-01-10 11:37] VITALS: BMI 37.9
[2021-01-24 12:00] VITALS: BMI 36.9
[2021-02-02 06:01] VITALS: BP 151/77; PULSE 82; RESP 16; TEMP 36.7; O2SAT 94; BMI 36.3
[2021-02-02] MEDS: Lactated Ringers 1,000 ML 100 ML IV (06:06)
[2021-02-02 06:16] LABS: Bedside Glucose 195 mg/dL (70-110)
--- NOTE | 2021-02-02 07:01 | PCM.HP.BLA ---
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 [employer] Required: No Is patient in pain?: Yes (generalized) Allergies acetaminophen [From Percocet] Allergy (Verified 01/24/21 12:01) Unknown hydrocodone [From Vicodin] Allergy (Verified 01/24/21 12:01) Unknown lactase [From Dairy Aid] Allergy (Verified 01/24/21 12:01) Unknown mold Allergy (Verified 01/24/21 12:01) Unknown oxycodone [From Percocet] Allergy (Verified 01/24/21 12:01) Unknown Penicillins Allergy (Verified 01/24/21 12:01) Unknown pollen extracts Allergy (Verified 01/24/21 12:01) Unknown rofecoxib [From Vioxx] Allergy (Verified 01/24/21 12:01) Unknown Sulfa (Sulfonamide Antibiotics) Allergy (Verified 01/24/21 12:01) Unknown Medications Aspirin 81 mg PO DAILY 01/09/17 [History Confirmed 01/24/21] Cyclobenzaprine HCl 10 mg PO TID PRN 01/09/17 [History Confirmed 01/24/21] Lutein 20 mg PO QODAY 01/09/17 [History Confirmed 01/24/21] Multivitamins,Therapeutic [Multivitamin] 1 tab PO DAILY 01/09/17 [History Confirmed 01/24/21] Tramadol HCl [Ultram] 50 mg PO BID PRN 01/09/17 [History Confirmed 01/24/21] Ubidecarenone [Co Q-10] 200 mg PO QODAY 01/09/17 [History Confirmed 01/24/21] finasteride 5 mg tablet 5 mg PO QDAY 06/07/18 [History Confirmed 01/24/21] diclofenac sodium 1 % topical gel 2 g TOPICAL BID g 12/30/18 [History Confirmed 01/24/21] cephalexin 500 mg capsule 2,000 mg PO .COMPLEX cap 02/23/20 [History Confirmed 01/24/21] omeprazole 40 mg capsule,delayed release 40 mg PO .qod cap 02/23/20 [History Confirmed 01/24/21] metoprolol succinate 25 mg tablet,extended release 24 hr 25 mg PO DAILY #90 tab 08/23/20 [Rx Confirmed 01/24/21] simvastatin 20 mg tablet 20 mg PO QHS #90 tab 08/23/20 [Rx Confirmed 01/24/21] ascorbate calcium (vitamin C) 500 mg tablet 500 mg PO DAILY 01/05/21 [History Confirmed 01/24/21] cholecalciferol (vitamin D3) 50 mcg (2,000 unit) capsule 50 mcg PO DAILY 01/05/21 [History Confirmed 01/24/21] gabapentin 100 mg capsule 300 mg PO BID cap 01/05/21 [History Confirmed 01/24/21] metformin 500 mg tablet 750 mg PO BIDCM tab 01/05/21 [History Confirmed 01/24/21] tamsulosin 0.4 mg capsule 0.4 mg PO BID #180 cap 01/14/21 [Rx Confirmed 01/24/21] PFSH Medical History Essential hypertension (Chronic) Carotid bruit (Acute) Transient speech disturbance (Acute) Chest discomfort (Acute) Dyspnea on exertion (Acute) Atherosclerosis of coronary artery of [place] heart without angina pectoris (Chronic) Old inferior wall myocardial infarction (Chronic) Asthma (Chronic) BPH (benign prostatic hyperplasia) (Chronic) Cervical spondylosis (Chronic) Elevated liver enzymes (Chronic) Fatty liver (Chronic) Fibromyalgia (Chronic) GERD (gastroesophageal reflux disease) (Chronic) Obesity (Chronic) Osteoarthritis (Chronic) Peripheral neuropathy (Chronic) Rheumatoid synovitis (Chronic) Type 2 diabetes mellitus without complications (Chronic) Hypertension (Inactive) Surgical History History of coronary artery stent placement (Chronic 01/14/17) History of eye surgery (Acute) H/O arthroscopy of left knee (Chronic) History of back surgery (Chronic) History of basal cell carcinoma excision (Chronic) History of prostate surgery (Chronic) History of right shoulder replacement (Chronic) History of tonsillectomy (Chronic) Hx of cholecystectomy (Chronic) Family History Father CAD (coronary artery disease) Other Arthritis Asthma Bowel disease Cancer Diabetes Skin cancer Social History (Updated 01/24/21 @ 12:[address] Dalton Saldaña MD) Smoking Status: Former smoker alcohol intake: never substance use type: does not use what type of physical activity do you participate in: bicycling frequency: 3-4 times per week HPI HPI HPI: DION GARCIA is a 80 M who presents to the office today for HPI HPI Surgical H&P: Yes HPI: DION GARCIA is a 80 M who presents to the office today for headaches and left-sided facial pain. The patient reports that for the last year he has been having left-sided headaches and he reports very sensitive to light. The patient recently had a work-up with ophthalmology and they recommended left temporal artery biopsy. ROS General General: No weight change or fatigue HEENT Additional Details: Frequent headaches on the left side Cardio Cardiovascular: No murmur, pacemaker, heart disease, atrial fibrillation, high blood pressure, heart attack, heart stent, palpitations, shortness of breat with exertion or chest pain Psych Psychiatric: No depression or anxiety Resp Respiratory: No shortness of breath, No sleep apnea, No cough, No COPD, No asthma, No emphysema, No wheezing Gastro Gastrointestinal: No abdominal pain, No nausea or vomiting, No diarrhea, No constipation, No blood in stool, No acid reflux, No hemorrhoids, No ulcers, No gallbladder problem, No black,tarry stools Chad Hematologic: No blood thinners Exam Const General: cooperative Orientation: alert, oriented x3 Resp Effort & Inspection: normal respiratory effort Auscultation: clear to auscultation bilaterally Cardio Rate: regular rate Rhythm: regular rhythm Heart Sounds: no murmurs GI Inspection: non-distended Palpation: soft, nontender Assessment & Plan Problems 1. Left temporal headache R51.9 Plan Patient has been having left temporal headaches. He was sent here for evaluation for left temporal artery biopsy. I discussed this procedure with him. I discussed the risks including but not limited to bleeding, infection. I also discussed the possibility of the pathology coming back normal. The patient acknowledges the risks and will proceed with left temporal artery biopsy under MAC anesthesia. The patient will hold his aspirin for 5 days and I will schedule him for this procedure. Dalton Saldaña MD Pager: [facility] [address] [place] [address], [address] [place] [address] Office: I have re-examined the patient. There are no clinical changes since date of exam.
--- NOTE | 2021-02-02 07:30 | TEM_PTH ---
PATIENT: DION GARCIA LOC: [facility] U#:[id number] AGE/SX: 80/M ROOM: RE02/02/[address]: Dr. Dalton Saldaña MD : 1940 BED: DIS: 02/02/2021 SPEC #: [id number] RECD: 02/02/21 09:34 STATUS: HOLDEN ELIZABETH #: [id number] MARIUM: 02/02/21 07:[address]: Dalton Saldaña DEPT: SURGICAL PATHOLOGY RECD BY: Armando Waters ENTERED: 02/02/21 10:39 SP TYPE: TEMPORAL OTHR DR: Dr. 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 Focal calcifications of media. Focal disruption of internal elastic lamina. No evidence of arteritis. See comment. AM:danita 02/03/2021 COMMENT Elastin stain with matched control supports the above diagnosis. MICROSCOPIC DESCRIPTION Slides are reviewed. GROSS DESCRIPTION Received in fixative is one container labeled with the patient's name and designated left temporal artery. The specimen consists of a tubular piece of to-pink soft tissue measuring 3 cm in length and 0.2 cm in diameter. The entire specimen is submitted in one cassette. It will be sectioned at the time of embedding. / SJ:danita 02/02/21 TC:5 CPT: 05373, 03945
[2021-02-02] MEDS: Lidocaine 1% (20 ml mdv) 20 ML Vial (07:43)
[2021-02-02 08:10] VITALS: BP 113/31; BP 151/77; PULSE 82; RESP 18; TEMP 36.2; O2SAT 94
[2021-02-02 08:15] VITALS: BP 113/61; BP 151/77; PULSE 75; RESP 18; O2SAT 93
[2021-02-02 08:20] VITALS: BP 119/62; BP 151/77; PULSE 75; RESP 18; O2SAT 94
[2021-02-02 08:25] VITALS: BP 111/63; BP 151/77; PULSE 73; RESP 18; TEMP 36.2; O2SAT 94
--- NOTE | 2021-02-02 09:04 | OP.PCM_ITS ---
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 The left forehead was clipped of hair and prepped and draped in usual sterile fashion. The palpable pulse was followed and incision was marked and injected with local anesthetic. Incision was then made with a scalpel and deepened to the subcutaneous tissue. The temporal artery was identified by its pulsation and location. It was dissected free inferiorly and superiorly. The tributaries were clipped and divided. The artery was tied with a 3-0 silk at the inferior and superior margins. Clip was placed just distal to the ties and then the caroline ry was removed and sent for pathology. The area was irrigated and appeared to have good hemostasis. The incision was closed with interrupted 4-0 Vicryl sutures as well as a running 4-0 Monocryl suture. Dermabond glue was then applied. The patient was awoken and taken to PACU in stable condition. - Admit VTE Documentation VTE Mechan Device Prophylaxis: SCD's
--- NOTE | 2021-02-02 09:06 | DCINST_ITS ---
Discharge Diet: Light diet - advance as tolerated Discharge Activity: May Shower Lifting Restrictions: 10 pounds for 1 week Call your doctor if your incision/area has: Continuous Slow Oozing, Sudden Increased Bleeding, Increased Pain/ Swelling, Increased Redness, Foul Smelling Discharge, Swelling at the incision site Call your doctor if you observe: Fever of 101 or Higher Suture Line Care: Avoid Pulling/Pushing, Avoid Pinching/Bending Allergies/Adverse Reactions: Allergies acetaminophen [From Percocet] Allergy (Verified 02/02/21 05:59) Unknown hydrocodone [From Vicodin] Allergy (Verified 02/02/21 05:59) Unknown lactase [From Dairy Aid] Allergy (Verified 02/02/21 05:59) Unknown mold Allergy (Verified 02/02/21 05:59) Unknown oxycodone [From Percocet] Allergy (Verified 02/02/21 05:59) Unknown Penicillins Allergy (Verified 02/02/21 05:59) Unknown pollen extracts Allergy (Verified 02/02/21 05:59) Unknown rofecoxib [From Vioxx] Allergy (Verified 02/02/21 05:59) Unknown Sulfa (Sulfonamide Antibiotics) Allergy (Verified 02/02/21 05:59) Unknown Medications to take at Discharge Aspirin 81 mg PO DAILY 01/09/17 Lutein 20 mg PO QODAY 01/09/17 Multivitamins,Therapeutic [Multivitamin] 1 tab PO DAILY 01/09/17 Tramadol HCl [Ultram] 50 mg PO BID PRN 01/09/17 Ubidecarenone [Co Q-10] 200 mg PO QODAY 01/09/17 finasteride 5 mg tablet 5 mg PO QDAY 06/07/18 diclofenac sodium 1 % topical gel 2 g TOPICAL BID PRN g 12/30/18 metoprolol succinate 25 mg tablet,extended release 24 hr 25 mg PO DAILY #90 tab 08/23/20 simvastatin 20 mg tablet 20 mg PO QHS #90 tab 08/23/20 ascorbate calcium (vitamin C) 500 mg tablet 500 mg PO DAILY 01/05/21 cholecalciferol (vitamin D3) 50 mcg (2,000 unit) capsule 50 mcg PO DAILY 01/05/21 metformin 500 mg tablet 500 mg PO TID tab 01/05/21 tamsulosin 0.4 mg capsule 0.4 mg PO BID #180 cap 01/14/21 Diphenhydramine HCl [Zzzquil] 5 ml PO PRN PRN 01/27/21 Primary Care Physician: Eulalia Munroe MD [Primary Care Provider] - Test Results: Test results from this visit will be discussed in further detail at your follow- up appointment, if applicable. Please Follow Up With: Dalton Saldaña MD When: Please call to schedule 2 week follow up appointment. [phone]
[2021-02-02 09:25] VITALS: BP 132/80; BP 151/77; PULSE 88; RESP 16; TEMP 36.2; O2SAT 95
== END 2021-02-02 09:40 | disposition home or self-care (01) ==
LOC: SDC 05:22 → AC 05:22
PROVIDERS: PCP Internal Medicine; Referring Provider Surgery; Visit Provider Surgery
PROC: (CPT 37609; principal; 2021-02-02 07:15)
DX: R51.9 Headache, unspecified (principal); Z20.828 Contact with and (suspected) exposure to other viral communicable diseases; I25.2 Old myocardial infarction; E78.00 Pure hypercholesterolemia, unspecified; K76.0 Fatty (change of) liver, not elsewhere classified; I10 Essential (primary) hypertension; I25.10 Atherosclerotic heart disease of native coronary artery without angina pectoris; N40.0 Benign prostatic hyperplasia without lower urinary tract symptoms; J45.909 Unspecified asthma, uncomplicated; M06.9 Rheumatoid arthritis, unspecified; M19.90 Unspecified osteoarthritis, unspecified site; E66.9 Obesity, unspecified; M79.7 Fibromyalgia; E11.42 Type 2 diabetes mellitus with diabetic polyneuropathy; Z79.84 Long term (current) use of oral hypoglycemic drugs; Z79.82 Long term (current) use of aspirin; Z79.899 Other long term (current) drug therapy; Z87.891 Personal history of nicotine dependence; Z86.718 Personal history of other venous thrombosis and embolism; Z95.5 Presence of coronary angioplasty implant and graft; Z68.36 Body mass index [BMI] 36.0-36.9, adult
CPT/HCPCS: 37609; 82962; 87426; 88305; 88313; C9803; J7120

== ENCOUNTER → 2021-02-23 11:16 | Outpatient (CLI) | payer MEDICARE, SELFPAY ==
[2017-01-10 11:37] VITALS: BMI 37.9
[2021-02-02 06:01] VITALS: BMI 36.3
--- NOTE | 2021-02-23 11:16 | MRI_ITS ---
STUDY: MRI BRAIN WITHOUT CONTRAST REASON FOR EXAM: Male, 80 years old. Left temporal headaches TECHNIQUE: Standardized multiplanar fat and water weighted pulse sequences were obtained. COMPARISON: None. FINDINGS: Normal size of the ventricles and extra-axial spaces for the patient''s age. Normal white matter tracts of the supratentorial brain. There is no evidence for recent intracranial ischemia or other cause of cytotoxic edema on diffusion weighted imaging (DWI). Normal T2* images of the brain without demonstrated susceptibility artifact. There is no demonstrated hemosiderin stain. Normal bilateral basal ganglia. Normal thalami. There is no extra-axial fluid accumulation. Normal flow voids within the major intracranial circulation suggesting patency by spin echo criteria. Normal sella turcica, pituitary gland, infundibular stalk, optic chiasm and hypothalamus. Normal tectal plate and pineal gland. Normal midbrain, paddy and medulla. Normal cerebellum. Normal basal cisterns. Normal bilateral temporal bones. Normal bilateral internal auditory canals. There is an ocular lens implant of the right globe. Normal left globe. The intraorbital contents otherwise are normal. Normal visualized paranasal sinuses. Normal calvarium and skull base. Normal visualized soft tissue structures. Normal visualized upper cervical spine. MRI/Brain without Contrast IMPRESSION: Normal unenhanced MRI of the brain. Electronically Signed: Yemi Nielson MD at 13:51 EDT Tel , Service support ,
== END ==
PROVIDERS: PCP Internal Medicine; Referring Provider Psychiatry & Neurology Neurology; Visit Provider Psychiatry & Neurology Neurology
DX: R51.9 Headache, unspecified (principal)
CPT/HCPCS: 70551

== ENCOUNTER 2021-11-28 06:35 | Outpatient (CLI) | payer MEDICARE, SELFPAY ==
[2017-01-10 11:37] VITALS: BMI 37.9
--- NOTE | 2021-11-28 06:38 | ECHOCS_ITS ---
Reason For Study: Procedure This was a 2D Doppler, Color Flow transthoracic echocardiogram. Contrast injection was performed. Exam performed in department. Left Ventricle Normal LV size. Left ventricular systolic function is normal. The estimated ejection fraction is 60 %. No regional wall motion abnormalities noted. Right Ventricle Normal RV size. Normal systolic function. Atria Normal left atrium. Normal right atrium. Mitral Valve Normal mitral valve. Tricuspid Valve Normal tricuspid valve. Aortic Valve Trisinus/trileaflet aortic valve. Mild focal aortic valve calcification. Peak aortic valve gradient 24 mmHg. Mean aortic valve gradient 14 mmHg. Mild aortic stenosis. Pulmonic Valve Normal pulmonic valve. Great Vessels Normal aortic root. The pulmonary artery is normal size. Normal inferior vena cava. Pericardium/Pleural No pericardial effusion. Medication Diluted definity 2ml given slow IV push to enhance endocardial definition. MMode/2D Measurements & Calculations LVIDd: 4.9 cm IVSd: 1.2 cm LVOT diam: 2.0 cm LVIDs: 3.1 cm LVPWd: 1.1 cm RVDd: 2.4 cm FS: 36.9 % LVOT area: 3.3 cm2 Ao root diam: 3.5 cm LAV(MOD-bp): 39.6 ml LVAd ap4: 28.7 cm2 LAV(MOD-bp) Indexed: 17.9 ml/m2 LVLd ap4: 7.5 cm LAV(MOD-sp2): 45.2 ml EDV(MOD-sp4): 90.9 ml LAV(MOD-sp4): 36.4 ml EDV(sp4-el): 93.1 ml LVAs ap4: 14.7 cm2 LVLs ap4: 6.6 cm ESV(MOD-sp4): 28.5 ml ESV(sp4-el): 28.1 ml EF(MOD-sp4): 68.6 % EF(sp4-el): 69.8 % SV(MOD-sp4): 62.4 ml SV(sp4-el): 65.0 ml LA A4 area: 14.6 cm2 LA dimension(2D): 3.9 cm RA A4 area: 16.6 cm2 Doppler Measurements & Calculations MV E max silverio: 53.2 cm/sec Lat Peak E' Silverio: 6.6 cm/sec Med Peak E' Silverio: 5.9 cm/sec MV A max silverio: 99.3 cm/sec E/E' lat: 8.1 E/E' med: 9.0 MV E/A: 0.54 Ao V2 max: 245.7 cm/sec LV V1 max: 115.3 cm/sec SV(LVOT): 79.1 ml Ao max P.2 mmHg LV V1 max P.3 mmHg Ao V2 mean: 174.9 cm/sec LV V1 mean P.4 mmHg Ao mean P.5 mmHg LV V1 mean: 88.5 cm/sec Ao V2 VTI: 45.5 cm LV V1 VTI: 24.2 cm FARIBA(I,D): 1.7 cm2 FARIBA(V,D): 1.5 cm2 PA V2 max: 104.8 cm/sec ECHO/Echo Complete W/ Contrast Interpretation Summary Normal LV size. Left ventricular systolic function is normal. The estimated ejection fraction is 60 %. Mild focal aortic valve calcification. Mean aortic valve gradient 14 mmHg. Mild aortic stenosis. Contrast injection was performed. Ordering Physician: Jesenia Krueger Referring Physician: Eulalia Munroe Performed By: Gricel Li, CUATE, RVT
--- NOTE | 2021-11-28 13:11 | STRESSREP ---
Stress Test Report Pharmacologic myocardial perfusion stress test. 81-year-old man with a history of STEMI 2016. Medications aspirin Multivite metoprolol simvastatin metformin. Stress protocol: Resting KG demonstrates normal sinus rhythm with a rate of 88 bpm normal intervals are noted resting blood pressure is 158/90 mmHg. 0.4 mg of regadenoson was infused per usual protocol followed by Intravenous saline flush injection continuous EKG monitoring was performed. The maximum heart rate attained was 93 bpm or 66% of max impact at heart rate the maximum workload was 1 metabolic equivalent. At rest there were no ST or T wave changes noted to suggest abnormal flow reserve and at peak infusion nonspecific ST changes were noted. Myocardial perfusion protocol. 14.2 mCi of technetium 99m sestamibi was injected at rest. 0.4 mg of regadenoson was infused per usual protocol. At peak infusion 44.7 mCi of technetium 99m sestamibi was injected stress images were obtained stress and rest images were reconstructed and compared in the short axis vertical long and horizontal long axis. Gated images were also obtained. Perfusion SPECT analysis: Review of the stress images demonstrate normal uptake of tracer noted in all areas of the myocardium. The resting images similarly demonstrate normal uptake of tracer noted in all areas of the myocardium. No areas of reversibility are noted to suggest ischemia and no previous infarct is noted. Gated SPECT analysis: The gated ejection fraction is 75%. Conclusion: Normal pharmacologic myocardial perfusion stress test. Preserved ejection fraction.
== END 2021-11-28 23:59 | disposition home or self-care (01) ==
LOC: CVS 06:36
PROVIDERS: PCP Internal Medicine; Referring Provider Nurse Practitioner Gerontology; Visit Provider Nurse Practitioner Gerontology
DX: C22.9 Malignant neoplasm of liver, not specified as primary or secondary (principal); E11.42 Type 2 diabetes mellitus with diabetic polyneuropathy; R18.0 Malignant ascites; R07.9 Chest pain, unspecified; I35.0 Nonrheumatic aortic (valve) stenosis; E78.5 Hyperlipidemia, unspecified; Z97.8 Presence of other specified devices; N40.0 Benign prostatic hyperplasia without lower urinary tract symptoms; Z79.899 Other long term (current) drug therapy; I25.2 Old myocardial infarction; I25.10 Atherosclerotic heart disease of native coronary artery without angina pectoris; I10 Essential (primary) hypertension; R10.9 Unspecified abdominal pain
CPT/HCPCS: 78452; 93017; 93306; A9500; Q9957; A4216; C8929; J2785

== ENCOUNTER 2022-01-04 11:28 | Outpatient (CLI) | payer MEDICARE, SELFPAY ==
[2017-01-10 11:37] VITALS: BMI 37.9
[2022-01-04 12:17] LABS: Absolute Lymphocyte Count 2.27 X10^3/uL (0.83-4.51); Absolute Neutrophil Count 4.1 X10^3/uL (2.0-7.7); Basophil# 0.04 X10^3/uL; Basophil% 0.5 % (0-1); Eosinophil# 0.26 X10^3/uL; Eosinophils% 3.4 % (0-5); Hematocrit 44.3 % (40-54); Hemoglobin 14.4 g/dL (13.0-16.5); Lymphocyte # 2.27 X10^3/ul (0.83-4.51); Lymphocyte % 30.1 % (19-41); Mean Corp Hgb Conc 32.5 g/dL (32-36); Mean Corpuscular Hgb 28.6 pg (27.0-32.0); Mean Corpuscular Volume 87.9 fL (80-94); Mean Platelet Vol. 10.2 fl (6.2-12.0); Monocyte# 0.86 X10^3/uL; Monocyte% 11.4 % (0-10); NRBC Flagged by Analyzer 0 % (0-5); Neutrophil # 4.09 X10^3/uL (2.7-7.7); Neutrophil % 54.3 % (47-70); Platelet Count 179 K/mm3 (150-450); RBC Distribution Width CV 13.8 % (11.6-14.6); RBC Distribution Width SD 44.5 fl (35.1-43.9); Red Blood Count 5.04 M/mm3 (4.6-6.2); White Blood Count 7.5 K/mm3 (4.4-11.0)
[2022-01-04 12:34] LABS: Vitamin D,25 Hydroxy 31.6 ng/mL
[2022-01-04 12:50] LABS: AST(SGOT) 74 U/L (15-37); Alanine Aminotransfer ALT/SGPT 81 U/L (16-61); Albumin, Serum 3.8 g/dL (3.2-5.0); Alkaline Phosphatase 83 U/L (45-117); Anion Gap 7 (5-15); BUN 16 mg/dL (7-18); Calcium,Total 9.6 mg/dL (8.5-10.1); Chloride 103 mmol/L (98-107); Cholesterol 139 mg/dL (200); Creatinine, Serum 1.07 mg/dL (0.70-1.30); EST Glomerular Filtration Rate 70 mL/min (>60); Est Glom Filt Rate - Afr Amer 85 mL/min (>60); Globulin 3.7 g/dL (2.2-4.2); Glucose 173 mg/dL (74-106); High Density Lipoprotein 58 mg/dL; Potassium 4.6 mmol/L (3.5-5.1); Protein, Total 7.5 g/dL (6.4-8.2); Sodium Level 136 mmol/L (136-145); Thyroid Stim Hormone (TSH) 3.14 uIU/mL (0.358-3.74); Triglycerides 152 mg/dL; Very Low Density Lipoprotein 30 mg/dL (5-40)
== END 2022-01-04 23:59 | disposition home or self-care (01) ==
LOC: BIMLAB 11:29
PROVIDERS: PCP Internal Medicine; Referring Provider Internal Medicine; Visit Provider Internal Medicine
DX: E55.9 Vitamin D deficiency, unspecified (principal); E11.9 Type 2 diabetes mellitus without complications; I25.10 Atherosclerotic heart disease of native coronary artery without angina pectoris; I10 Essential (primary) hypertension; Z95.5 Presence of coronary angioplasty implant and graft
CPT/HCPCS: 36415; 80053; 80061; 82306; 84443; 85025

== ENCOUNTER → 2022-03-25 | Outpatient (CLI) | payer MEDICARE, SELFPAY ==
[2017-01-10 11:37] VITALS: BMI 37.9
--- NOTE | 2022-03-25 08:10 | RAD_ITS ---
STUDY: X-RAY CHEST REASON FOR EXAM: Male, 81 years old. INCREASED SOB ON EXERTION, PRE HEART CATHERIZATION Cardiac Catheterization TECHNIQUE: XR Chest 2 Views COMPARISON: 04/02/2019 FINDINGS: There is no demonstrated pleural abnormality. Total right shoulder arthroplasty. Normal size heart. Normal mediastinum and jody. Normal visualized pulmonary arteries. There is atherosclerotic calcification of the aortic arch with tortuosity. There are diffuse degenerative changes of the visualized thoracic spine. There is degenerative osteoarthritis of the bilateral shoulders. There is no demonstrated abnormality of the visualized soft tissue structures of the upper abdomen. RAD/Chest PA and Lateral IMPRESSION: There are no acute findings. Electronically Signed: Tolu Beck MD at 8:50 EDT ,
[2022-03-25 09:18] LABS: Absolute Lymphocyte Count 1.87 X10^3/uL (0.83-4.51); Absolute Neutrophil Count 3.9 X10^3/uL (2.0-7.7); Basophil# 0.04 X10^3/uL; Basophil% 0.6 % (0-1); Eosinophil# 0.45 X10^3/uL; Eosinophils% 6.3 % (0-5); Hematocrit 43.6 % (40-54); Hemoglobin 14.1 g/dL (13.0-16.5); Lymphocyte # 1.87 X10^3/ul (0.83-4.51); Lymphocyte % 26.2 % (19-41); Mean Corp Hgb Conc 32.3 g/dL (32-36); Mean Corpuscular Hgb 28.7 pg (27.0-32.0); Mean Corpuscular Volume 88.8 fL (80-94); Mean Platelet Vol. 10.1 fl (6.2-12.0); Monocyte# 0.85 X10^3/uL; Monocyte% 11.9 % (0-10); NRBC Flagged by Analyzer 0 % (0-5); Neutrophil # 3.91 X10^3/uL (2.7-7.7); Neutrophil % 54.7 % (47-70); Platelet Count 183 K/mm3 (150-450); RBC Distribution Width CV 13.4 % (11.6-14.6); RBC Distribution Width SD 43.9 fl (35.1-43.9); Red Blood Count 4.91 M/mm3 (4.6-6.2); White Blood Count 7.1 K/mm3 (4.4-11.0)
[2022-03-25 09:23] LABS: International Normalized Ratio 1.2; Prothrombin Time (Protime)PT. 14.5 SECONDS (11.7-14.9)
[2022-03-25 10:10] LABS: BNP,B-Type NATRIURETIC PEPTIDE 61.2 pg/mL (0-100)
[2022-03-25 10:18] LABS: Anion Gap 8 (5-15); BUN 13 mg/dL (7-18); BUN/Creat Ratio 12.7 RATIO (10-20); Calcium,Total 9.5 mg/dL (8.5-10.1); Chloride 102 mmol/L (98-107); Creatinine, Serum 1.02 mg/dL (0.70-1.30); EST Glomerular Filtration Rate 74 mL/min (>60); Est Glom Filt Rate - Afr Amer 90 mL/min (>60); Glucose 202 mg/dL (74-106); Potassium 4.2 mmol/L (3.5-5.1); Sodium Level 137 mmol/L (136-145)
== END | disposition home or self-care (01) ==
LOC: LAB 08:05
PROVIDERS: PCP Internal Medicine; Referring Provider Nurse Practitioner Gerontology; Visit Provider Nurse Practitioner Gerontology
DX: R06.00 Dyspnea, unspecified (principal); I25.10 Atherosclerotic heart disease of native coronary artery without angina pectoris; R53.83 Other fatigue
CPT/HCPCS: 36415; 71046; 80048; 83880; 85025; 85610

== ENCOUNTER 2022-03-28 06:35 | Day surgery (SDC) | payer MEDICARE, SELFPAY ==
[2017-01-10 11:37] VITALS: BMI 37.9
[2022-03-27 08:46] VITALS: BMI 35.7
--- NOTE | 2022-03-28 08:38 | CL.D_ITS ---
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 RECOMMENDATIONS Medical therapy DESCRIPTION OF PROCEDURE The patient arrived to the procedure lab. The risks and benefits of the procedure as well as a full d escription of our services here and current unavailability of surgical backup were fully explained to the patient and/or their significant other prior to the catheterization. The Timeout was completed, verifying the correct patient and procedure. The patient's procedural site was prepped and draped in the usual fashion. Local anesthetic was given subcutaneously to right radial region with Lidocaine 2% . Using a modified Seldinger technique, arterial access was obtained via the right radial artery, a 6 Fr sheath was inserted. Right Coronary Artery selective angiography was then performed in multiple v iews using a 5 Fr. 4.0 [place] catheter. Left Coronary Artery selective angiography was performed in mu ltiple views using a 5 Fr. 4.0 [place] catheter. Left Ventriculography was performed in [place]O projection using a 5 Fr. [place] catheter. LV to AO pullback pressures were then recorded.The arterial sheath was pulled and a TR Band was applied for hemostasis CORONARY ANGIOGRAPHY DOMINANCE: Right Dominant LEFT HEART ASSESSMENT Left Ventricular Ejection Fraction: by LV Gram 55 % Normal LV wall motion Normal Left Ventricular systolic function Aortic Valve Mean Gradient: 10.4 LEFT MAIN: Mild calcification, Non-obstructive LEFT ANTERIOR DESCENDING ARTERY: Medium size vessel which appears to be diffusely diseased with a mid to distal 70 to 80% stenotic lesion noted DIAGONAL 1: Proximal - Proximal 70% stenosis noted in the superior branch of the first diagonal vesse l CIRCUMFLEX ARTERY: Previously stented vessel which appears to be patent and distally demonstrating an 80% stenotic lesion in the posterior lateral vessel. RAMUS: Proximal long 80% stenotic lesion RIGHT CORONARY ARTERY: Dominant medium size vessel with mild luminal irregularities noted proximally and a trifurcating lesion of approximately 80% at the origin of the posterior descending artery VALVE FINDINGS: Aortic Valve Stenosis - mild COMPLICATIONS No Complications PROCEDURE MEDICATIONS Versed 1 mg IV Fentanyl 50 mcg IV Versed 1 mg IV Oxygen: 2 L/min via nasal cannula Benadryl 25 mg IV @ 03/28/2022 08:25:55 Heparin given IA 03/28/2022 08:00:51 Verapamil 2.5mg, Ntg 100mcgs, 3000 units of Heparin given IA 03/28/2022 08:00:51 SUMMARY OF HEMODYNAMIC DATA Time AIR REST ECG 07:04:53 Art 192/75 (117) 07:59:58 AO 126/74 (98) SA 08:02:54 LV 135/6, 12 08:13:25 LV 136/6, 13 08:13:32 LV 128/10, 19 08:14:14 LV 131/9, 17 08:14:21 LVp 134/11, 18 08:14:27 AOp 127/67 (92) 08:14:32 RM AIR REST 08:33:17 Valve Area (c P-P/ms Time AIR REST Aortic 0.00 10.4 mn/284 ms7.0 pk/284 ms 08:14:27 Signed By Vikram Dougherty MD On 03/28/2022 08:37:18 Vikram Dougherty MD
== END 2022-03-28 10:20 | disposition home or self-care (01) ==
LOC: CLSP 06:36
PROVIDERS: PCP Internal Medicine; Referring Provider Internal Medicine Cardiovascular Disease; Visit Provider Internal Medicine Cardiovascular Disease
DX: I25.10 Atherosclerotic heart disease of native coronary artery without angina pectoris (principal); E66.01 Morbid (severe) obesity due to excess calories; E11.9 Type 2 diabetes mellitus without complications; I35.0 Nonrheumatic aortic (valve) stenosis; I25.2 Old myocardial infarction; N40.0 Benign prostatic hyperplasia without lower urinary tract symptoms; I10 Essential (primary) hypertension; K21.9 Gastro-esophageal reflux disease without esophagitis; Z79.82 Long term (current) use of aspirin; Z79.899 Other long term (current) drug therapy; Z79.84 Long term (current) use of oral hypoglycemic drugs; Z68.35 Body mass index [BMI] 35.0-35.9, adult; Z95.5 Presence of coronary angioplasty implant and graft; Z87.891 Personal history of nicotine dependence
CPT/HCPCS: 93458; 99152; 99153; J7030; Q9967; C1769; C1894

== ENCOUNTER → 2022-04-18 | Outpatient (CLI) | payer MEDICARE, SELFPAY ==
[2017-01-10 11:37] VITALS: BMI 37.9
--- NOTE | 2022-04-18 07:51 | CDU_ITS ---
Reason For Study: dizziness, CAD Rt. Velocities/BP Lt. Velocities/BP Prox CCA 93.0/10.8 cm/sec. Prox CCA 82.5/17.3 cm/sec. Mid CCA 74.7/16.0 cm/sec. Mid CCA 65.6/14.7 cm/sec. Dist CCA 82.6/10.8 cm/sec. Dist CCA 60.4/13.4 cm/sec. Prox ICA 55.2/12.1 cm/sec. Prox ICA 57.8/9.5 cm/sec. Mid ICA 57.8/21.3 cm/sec. Mid ICA 66.9/22.6 cm/sec. Dist ICA 73.4/18.6 cm/sec. Dist ICA 87.8/27.8 cm/sec. Rt. ICA/CCA = 1.0. Lt. ICA/CCA = 1.3. Prox ECA 112.5/12.1 cm/sec. Prox ECA 79.9/8.2 cm/sec. Rt. Vert. 53.9/16.0 cm/sec. Lt. Vert. 52.5/16.0 cm/sec. Right Extracranial There is homogeneous, smooth atherosclerotic plaque noted in the right common carotid artery. There is heterogeneous, irregular atherosclerotic plaque noted in the right internal carotid artery. There is heterogeneous, irregular atherosclerotic plaque noted in the right external carotid artery. Antegrade flow is noted in the right vertebral artery. Left Extracranial There is homogeneous, smooth atherosclerotic plaque noted in the left common carotid artery. There is heterogeneous, irregular atherosclerotic plaque noted in the left internal carotid artery. There is homogeneous, smooth atherosclerotic plaque noted in the left external carotid artery. Antegrade flow is noted in the left vertebral artery. Procedure Carotid Duplex [id number]. This is a Carotid Duplex examination using B-mode, color flow and specral Doppler. The exam was diagnostic. Exam performed in department. VL/Carotid Duplex Ultrasound Interpretation Summary Irregular plaque at the proximal right internal carotid artery with less than 5 0% stenosis. Less than 50% stenosis right external carotid artery Irregular plaque at the proximal left internal carotid artery with less than 50 % stenosis Less than 50% stenosis left external carotid artery Patent and antegrade vertebral arteries bilaterally No change from June 21, 2018 Ordering Physician: Jesenia Krueger Performed By: Avtar Wheatley RVT
== END | disposition home or self-care (01) ==
LOC: CVS 07:49
PROVIDERS: PCP Internal Medicine; Visit Provider Nurse Practitioner Gerontology
DX: R42 Dizziness and giddiness (principal); I25.10 Atherosclerotic heart disease of native coronary artery without angina pectoris
CPT/HCPCS: 93880

== ENCOUNTER 2022-05-10 08:30 | Outpatient (RCR) | payer MEDICARE, SELFPAY ==
[2017-01-10 11:37] VITALS: BMI 37.9
[2022-04-26 08:05] VITALS: BP 140/67; PULSE 98; TEMP 36.1; BMI 34.8
--- NOTE | 2022-04-26 08:59 | PCM.WC.HP ---
History of Present Illness Date of Service: 04/26/22 Chief Complaint: Follow-up on bilateral buttocks wounds from shearing. 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 Keeps developing these shearing on his buttocks cheeks. From sitting in a recliner all day and sleeps in it all night. Patient states had back surgery and it left him with peripheral neuropathy from his knees down. Patient has been using a doughnut to sit on and he does have the crates also to sit on. Patient was seen by his family doctor and referred here. Patient has been using Calmoseptine cream for the open areas that are very superficial. There appears to be some discoloration like he almost gets like little blood blisters down there that flatten out from the shearing. 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) Osteoarthritis Peripheral neuropathy Rheumatoid synovitis Transient speech disturbance Type 2 diabetes mellitus without complications Home Medications aspirin 81 mg chewable tablet 81 mg PO DAILY heart 01/09/17 [History Last Taken 03/28/22] coenzyme Q10 200 mg capsule 200 mg PO QODAY heart 01/09/17 [History Last Taken 1 Day Ago ~02/15/19] lutein 20 mg tablet 20 mg PO QODAY eye 01/09/17 [History Last Taken 1 Day Ago ~02/15/19] multivitamin with folic acid 400 mcg tablet 1 tab PO DAILY supplemental 01/09/17 [History Last Taken 02/16/19] ascorbate calcium (vitamin C) 500 mg tablet 500 mg PO DAILY 01/05/21 [History Last Taken Unknown] cholecalciferol (vitamin D3) 50 mcg (2,000 unit) capsule 50 mcg PO DAILY 01/05/21 [History Last Taken Unknown] sumatriptan succinate 50 mg tablet See Rx Instructions PO .COMPLEX #30 tabs 08/24/21 [Rx Last Taken Unknown] alcohol swabs 1 pad topical .3 times daily #100 ea 09/21/21 [Rx Last Taken Unknown] blood sugar diagnostic (Accu-Chek Delmi Plus test strp) #100 ea 09/21/21 [Rx Last Taken Unknown] lancets (Accu-Chek Softclix Lancets) #100 ea 09/21/21 [Rx Last Taken Unknown] omeprazole 40 mg capsule,delayed release 40 mg PO DAILY #90 caps 09/21/21 [Rx Last Taken Unknown] cephalexin 500 mg capsule 2,000 mg PO .COMPLEX 09/23/21 [History Last Taken Unknown] diclofenac sodium 1 % topical gel (Arthritis Pain (diclofenac)) 2 g topical ONCE 09/23/21 [History Last Taken Unknown] finasteride 5 mg tablet 5 mg PO DAILY 09/23/21 [History Last Taken Unknown] diphenhydramine HCl 25 mg capsule 25 mg PO QHS PRN Sleep 03/23/22 [History Last Taken Unknown] magnesium oxide 400 mg (241.3 mg magnesium) tablet 400 mg PO Q OTHER DAY 03/23/22 [History Last Taken Unknown] metformin 500 mg tablet 500 mg PO .COMPLEX diabetes 03/23/22 [History Last Taken 03/27/22] potassium gluconate 595 mg (99 mg) tablet 595 mg PO Q OTHER DAY 03/23/22 [History Last Taken Unknown] simvastatin 20 mg tablet 20 mg PO QHS cholesterol #90 tabs 04/03/22 [Rx Last Taken Unknown] tamsulosin 0.4 mg capsule 0.4 mg PO BID prostate #180 caps 04/03/22 [Rx Last Taken Unknown] metoprolol succinate 50 mg tablet,extended release 24 hr 50 mg PO DAILY This is a dose increase #90 tabs 04/12/22 [Rx Last Taken Unknown] menthol 0.44 %-zinc oxide 20.6 % topical ointment (Calmoseptine) 1 applic topical 4-6XD PRN skin irritation #113 grams 04/13/22 [Rx Last Taken Unknown] semaglutide 3 mg tablet (Rybelsus) 3 mg PO DAILY 30 days #30 tabs 04/13/22 [Rx Last Taken Unknown] ascorbic acid (vitamin C) 25 mg tablet mg PO 04/26/22 [History Last Taken Unknown] calcium phosphate,dibasic 77 mg-vitamin D3 400 unit tablet tab PO 04/26/22 [History Last Taken Unknown] calcium phosphate,dibasic 77 mg-vitamin D3 400 unit tablet tab PO 04/26/22 [History Last Taken Unknown] semaglutide 3 mg tablet (Rybelsus) 3 mg PO DAILY 04/26/22 [History Last Taken Unknown] Allergy/AdvReac Type Severity Reaction Status Date / Time dulaglutide [From Trulicity] Allergy Severe nausea, Verified 04/13/22 10:38 vomiting, dry heaves acetaminophen [From Percocet] Allergy Unknown Verified 04/13/22 10:38 hydrocodone [From Vicodin] Allergy Unknown Verified 04/13/22 10:38 lactase [From Dairy Aid] Allergy Unknown Verified 04/13/22 10:38 mold Allergy Unknown Verified 04/13/22 10:38 oxycodone [From Percocet] Allergy Unknown Verified 04/13/22 10:38 Penicillins Allergy Unknown Verified 04/13/22 10:38 pollen extracts Allergy Unknown Verified 04/13/22 10:38 rofecoxib [From Vioxx] Allergy Unknown Verified 04/13/22 10:38 Sulfa (Sulfonamide Allergy Unknown Verified 04/13/22 10:38 Antibiotics) Family History Father CAD (coronary artery disease) Other Arthritis Asthma Bowel disease Cancer Diabetes Skin cancer Surgical History H/O arthroscopy of left knee History of back surgery History of basal cell carcinoma excision History of biopsy of temporal artery (01/2021) History of cataract surgery History of coronary artery stent placement (01/14/17) History of eye surgery History of left heart catheterization (03/28/22) History of prostate surgery History of right shoulder replacement History of tonsillectomy Hx of cholecystectomy Social History Smoking Status: Unknown if ever smoked how long ago did patient quit smokin alcohol intake: never substance use type: does not use caffeine: No what type of physical activity do you participate in: bicycling frequency: 3-4 times per week ROS Constitutional Constitutional: Reports systems reviewed and no addt'l complaints, except as documented Cardiovascular Cardiovascular: Reports systems reviewed and no addt'l complaints, except as documented Respiratory/Chest Respiratory/Chest: Reports systems reviewed and no addt'l complaints, except as documented Gastrointestinal Gastrointestinal: Reports systems reviewed and no addt'l complaints, except as documented Integumentary Integumentary: Reports skin ulcer and other Details: Bilateral buttock shearing sores on each buttocks cheek Psychiatric Psychiatric: Reports systems reviewed and no addt'l complaints, except as documented Endocrine Endocrinology: Reports systems reviewed and no addt'l complaints, except as documented Hematologic/Lymphatic Hematologic/Lymphatic: Reports systems reviewed and no addt'l complaints, except as documented Allergic/Immunologic Allergic/Immunologic: Reports systems reviewed and no addt'l complaints, except as documented Vital Signs Vital Signs Vital Signs: 04/26/22 08:05 Temperature 96.9 F L Temperature Source Temporal Pulse Rate 98 Blood Pressure 140/67 H Blood Pressure Mean 91 Blood Pressure Source Monitor Weight Weight: 236 lb Body Mass Index (BMI) 34.8 Physical Exam Const oriented x3 General Appearance: cooperative Exam Limitations: no limitations HEENT normocephalic Head and Scalp: normal to inspection Face and Sinus: normal facial exam Nose: external nose normal General Ear: hearing grossly impaired External Ear: external ears normal Mouth: oral and palatal mucosa normal Eyes PERRL General Eye: normal appearance of both eyes Neck full ROM General: normal visual inspection Resp normal respiratory effort Effort and Inspection: able to speak in complete sentences Auscultation: clear to auscultation bilaterally Cardio regular rate and regular rhythm Palpation: normal PMI Rate: regular rate Rhythm: regular rhythm GI Auscultation: normoactive bowel sounds Palpation: soft and no hepatosplenomegaly external exam normal Back/Spine Cervical Spine: cervical ROM normal Thoracic Spine / Upper Back: normal to inspection Lumbar Spine / Lower Back: normal to inspection Extremity normal to inspection General Extremity: normal exam except as noted Skin Skin Narrative: Positive open areas shearing on bilateral buttocks cheeks on an erythematous contused buttocks. Mostly superficial but scabbed over Neuro oriented x3 Psych Appearance: grossly normal Speech: normal speech Thought Content: normal thought content Judgement: judgement good Debridement Note Debridement Note Wound debrided: Right buttocks shearing Laterality: Right Wound Grade/Stage: Stage II Anesthesia Used: 4% Lidocaine Solution and 5% Lidocaine Gel Depth: Down to and including healthy tissue Percentage of wound debrided: 100 Instrument Used: 7mm curette and #15 blade Tissue Removed: Slough and devitalized tissue Severity: Limited To Skin Breakdown Amount of bleeding with debridement: Mild Patient tolerated procedure: Patient tolerated procedure well Post-Debridement Measurements and Additional Note: Post-Debridement Measurements/Treatment - Nurse 1 - General Ulcer Assessment Start: 04/26/22 08:04 Freq: Status: Active Protocol: KAMILA Activity Type Activity Date Activity User E-sign Co-sign Detail Recorded Client Recorded Date Recorded By Document 04/26/22 08:05 HONEY [id number] 04/26/22 08:14 HONEY 04/26/22 08:05 WC - Today's Visit Information Type of service 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 ) Arrival Mode Ambulatory, Wheelchair Patient Identification Verified (Name & Yes ) Patient Requires Transmission-Based No Precautions Safety Precautions NA Height and Weight Height 5 ft 9 in Weight 236 lb Weight in Pounds 236.0 lbs Weight Measurement Method Estimated by Patient Body Mass Index (BMI) 34.8 BMI Classification Obese BSA - [place] 2.22 Vital Signs Temperature (97.8 F-99.1 F) 96.9 F L Temperature Source Temporal Pulse Rate (60-100) 98 Pulse Location Monitor Blood Pressure (90/60-120/80) 140/67 H Blood Pressure Mean 91 Source Monitor History Since Last Visit- (Skip if this is Patient's initial visit) Have you changed medications since your No last visit? Any new allergies or adverse reactions No Had a fall/change in ADL's that may No increase risk of falls Signs or symptoms of abuse and/or No neglect since last visit Have you been in the hospital since your No last visit? Has dressing in place as prescribed Yes Has compression in place as prescribed N/A Has offloadiing in place as prescribed N/A Experienced any changes in pain level or No management Left Footwear Regular Shoe Right Footwear Regular Shoe Pain Scale: 0-10 Numeric Is Patient Pain Free? No - Nurse 1 - General Ulcer Measurement Start: 04/26/22 08:04 Freq: Status: Active Protocol: Activity Type Activity Date Activity User E-sign Co-sign Detail Recorded Client Recorded Date Recorded By Document 04/26/22 08:05 HONEY [id number] 04/26/22 08:14 HONEY 04/26/22 08:05 Wound Center Nurse 1 #2 R buttock -Combined with other wound No -Current Size (cm) - Length 0.1 -Current Size (cm) - Width 0.1 -Current Size (cm) - Depth 0.1 -Total Square Cm 0.01 -Date of Last Picture (Recall this 04/26/22 field) -Photo Taken Yes -Tunneling No -Undermining/Tunneling No -Circular Undermining No -Change in Wound Grade/Stage No -Exudate Amt Small -Exudate Type Serosanguineous -Wound Margin Distinct, Outline Attached -Granulation Amt Small (1-33%) -Granulation Quality N/A -Slough/Fibrin Yes -Necrosis Amt Medium (34-66%) -Necrotic Tissue Type Eschar -Structure Exposed N/A -Texture (Alysia-wound Skin Appearance) Assessed, Excoriation -Moisture (Alysia-wound Skin Appearance) No Abnormality, Assessed -Color (Alysia-wound Skin Appearance) Assessed, Erythema -Temperature (Alysia-wound Skin No Abnormality Appearance) (Pt Warm) -Tenderness on Palpation (Alysia-wound No Skin Appearance) -Ulcer Cleansing Rinsed/ Irrigated with Saline -Foul Odor after Cleansing No -Anesthetic Used 5% Lidocaine Gel #1 L buttock -Current Size (cm) - Length 2.6 -Current Size (cm) - Width 2 -Current Size (cm) - Depth 0.1 -Total Square Cm 5.2 -Date of Last Picture (Recall this 04/26/22 field) -Photo Taken Yes -Tunneling No -Undermining/Tunneling No -Circular Undermining No -Change in Wound Grade/Stage No -Exudate Amt Medium -Exudate Type Serosanguineous -Granulation Amt None Present (0 %) -Granulation Quality N/A -Necrosis Amt Medium (34-66%) -Necrotic Tissue Type Eschar -Structure Exposed N/A -Texture (Alysia-wound Skin Appearance) Assessed, Excoriation -Moisture (Alysia-wound Skin Appearance) No Abnormality, Assessed -Color (Alysia-wound Skin Appearance) Assessed, Erythema, Hemosiderin Staining -Temperature (Alysia-wound Skin No Abnormality Appearance) (Pt Warm) -Tenderness on Palpation (Alysia-wound No Skin Appearance) -Ulcer Cleansing Rinsed/ Irrigated with Saline -Foul Odor after Cleansing No -Anesthetic Used 5% Lidocaine Gel WC - Nurse 2 - General Ulcer CM Notes Start: 04/26/22 08:04 Freq: Status: Active Protocol: Activity Type Activity Date Activity User E-sign Co-sign Detail Recorded Client Recorded Date Recorded By Document 04/26/22 08:31 MW [id number] 04/26/22 08:37 MW 04/26/22 08:31 Wound Center Nurse 2 #2 R buttock -Time 08:32 -Correct Patient Yes -Correct Side, Site, Position Yes -Correct Procedure Yes -Procedure Performed Yes -Type of Procedure Debridement -Clinical Debridement Subcutaneous -Tissue Removed Subcutaneous -Post Debridement (cm) - Length 3.0 -Post Debridement (cm) - Width 3.0 -Post Debridement (cm) - Depth 0.1 -Total Square (Post) (cm) 9.00 -Area of Debridement (cm) - Length 3.0 -Area of Debridement (cm) - Width 3.0 -Total Square (Area) (cm) 9.00 -Tunneling No -Undermining/Tunneling No -Circular Undermining No -Wound/Ulcer Outcome Not Healed -Ulcer Cleansing Rinsed/ Irrigated with Saline -Foul Odor after Cleansing No -Bioengineered Tissue No -Bleeding Controlled with Pressure -Treatment Response Procedure Tolerated Well -Offloading No -Debridement - Subq, 1st 20sq cm Yes #1 L buttock -Time 08:32 -Correct Patient Yes -Correct Side, Site, Position Yes -Correct Procedure Yes -Procedure Performed Yes -Type of Procedure Debridement -Clinical Debridement Subcutaneous -Tissue Removed Subcutaneous -Post Debridement (cm) - Length 1.5 -Post Debridement (cm) - Width 4.5 -Post Debridement (cm) - Depth 0.1 -Total Square (Post) (cm) 6.75 -Area of Debridement (cm) - Length 1.5 -Area of Debridement (cm) - Width 4.5 -Total Square (Area) (cm) 6.75 -Tunneling No -Undermining/Tunneling No -Circular Undermining No -Wound/Ulcer Outcome Not Healed -Ulcer Cleansing Rinsed/ Irrigated with Saline -Foul Odor after Cleansing No -Bioengineered Tissue No -Bleeding Controlled with Pressure -Treatment Response Procedure Tolerated Well -Offloading No -Debridement - Subq, 1st 20sq cm No Pain Scale: 0-10 Numeric Is Patient Pain Free? Yes - Nurse 3 - General Ulcer D/C NN Start: 04/26/22 08:04 Freq: Status: Active Protocol: Activity Type Activity Date Activity User E-sign Co-sign Detail Recorded Client Recorded Date Recorded By Document 04/26/22 08:48 HONEY [id number] 04/26/22 08:48 HONEY 04/26/22 08:48 Wound Care Nurse 3 #2 R buttock -Primary Dressing Applied Mepilex Border -Other Dressing xeroform -Mepilex Border 2 Pain Scale: 0-10 Numeric Is Patient Pain Free? Yes WC - Visit Discharge Discharge Condition Stable Ambulatory Status Ambulatory, Walker Transportation Private Auto Accompanied by Additional Wound Wound debrided: Left buttocks cheek from shearing Laterality: Left Wound Grade/Stage: Stage II Type of Debridement: Excisional debridement Anesthesia Used: 4% Lidocaine Solution and 5% Lidocaine Gel Depth: Down to and including healthy tissue Percentage of wound debrided: 100 Instrument Used: 7mm curette and #15 blade Tissue Removed: Fibrin and devitalized tissue Severity: Limited To Skin Breakdown Amount of bleeding with debridement: Mild Bleeding Controlled with: Compression and gauze Patient tolerated procedure: Patient tolerated procedure well Assessment/Plan Assessment/Plan (1) Peripheral neuropathy: CODE(S): G62.9 - Polyneuropathy, unspecified (2) Type 2 diabetes mellitus without complications: CODE(S): E11.9 - Type 2 diabetes mellitus without complications (3) Stage II pressure ulcer of buttock: CODE(S): L89.302 - Pressure ulcer of unspecified buttock, stage 2 PLAN: Wash bilateral buttocks with antibacterial soap. Pat dry. Apply Xeroform dressings to bilateral buttocks cheeks Cover with either ABD or soft dressings with adhesive Follow-up in 1 week
[2022-05-03 08:23] VITALS: BP 135/67; PULSE 93; RESP 16; TEMP 36.1; BMI 34.8
--- NOTE | 2022-05-03 09:45 | PCM.WC.PN ---
History of Present Illness Date of Service: 05/03/22 Chief Complaint: Follow-up on bilateral buttocks wounds from shearing. 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 Keeps developing these shearing on his buttocks cheeks. From sitting in a recliner all day and sleeps in it all night. Patient states had back surgery and it left him with peripheral neuropathy from his knees down. Patient has been using a doughnut to sit on and he does have the crates also to sit on. Patient was seen by his family doctor and referred here. Patient has been using Calmoseptine cream for the open areas that are very superficial. There appears to be some discoloration like he almost gets like little blood blisters down there that flatten out from the shearing. Progress of Wound: Left buttocks looks much better and is healed still has dark erythematous skin color. Right buttocks scabs and pulls open. Debrided a lot of the skin that has accumulated on top of the skin try to make it smooth using nippers and scissors. Is improving we will continue the Xeroform dressing Subjective Subjective is doing the dressing changes and she is doing well she has not too many questions that we were able to explained to her how the dressings work. Objective Data Objective Data As above wounds are healing well we will see him in another week for the right buttocks Vital Signs: Vital Signs Temp Pulse Resp BP 96.9 F L 93 16 135/67 H 05/03/22 08:23 05/03/22 08:23 05/03/22 08:23 05/03/22 08:23 Oxygen Delivery Method Room Air Weight: 236 lb Body Mass Index (BMI) 34.8 Physical Exam Const oriented x3 General Appearance: cooperative Exam Limitations: no limitations HEENT normocephalic Head and Scalp: normal to inspection Face and Sinus: normal facial exam Nose: external nose normal General Ear: hearing grossly impaired External Ear: external ears normal Mouth: oral and palatal mucosa normal Eyes PERRL General Eye: normal appearance of both eyes Neck full ROM General: normal visual inspection Resp normal respiratory effort Effort and Inspection: able to speak in complete sentences Auscultation: clear to auscultation bilaterally Cardio regular rate and regular rhythm Palpation: normal PMI Rate: regular rate Rhythm: regular rhythm GI Auscultation: normoactive bowel sounds Palpation: soft and no hepatosplenomegaly external exam normal Back/Spine Cervical Spine: cervical ROM normal Thoracic Spine / Upper Back: normal to inspection Lumbar Spine / Lower Back: normal to inspection Extremity normal to inspection General Extremity: normal exam except as noted Skin Skin Narrative: Positive open areas shearing on bilateral buttocks cheeks on an erythematous contused buttocks. Mostly superficial but scabbed over Neuro oriented x3 Psych Appearance: grossly normal Speech: normal speech Thought Content: normal thought content Judgement: judgement good Debridement Note Debridement Note Wound debrided: Right buttocks decubitus ulcer Laterality: Right Wound Grade/Stage: Stage II Type of Debridement: Excisional debridement Anesthesia Used: 4% Lidocaine Solution and 5% Lidocaine Gel Depth: Down to and including healthy tissue Percentage of wound debrided: 100 Instrument Used: 7mm curette and - (Nippers and scissors) Tissue Removed: Fibrin and devitalized tissue Severity: Limited To Skin Breakdown Bleeding Controlled with: Compression and gauze Patient tolerated procedure: Patient tolerated procedure well Post-Debridement Measurements and Additional Note: Post-Debridement Measurements/Treatment - Nurse 1 - General Ulcer Assessment Start: 04/26/22 08:04 Freq: Status: Active Protocol: KAMILA Activity Type Activity Date Activity User E-sign Co-sign Detail Recorded Client Recorded Date Recorded By Document 04/26/22 08:05 [id number] 04/26/22 08:14 Document 05/03/22 08:23 [facility] [id number] 05/03/22 08:29 [facility] 04/26/22 05/03/22 08:05 08:23 - Today's Visit Information Type of service Follow-up Visit Follow-up Visit (Physician/DISPENSING OPERATOR (Physician/DISPENSING OPERATOR ) ) Arrival Mode Ambulatory, Ambulatory, Wheelchair Walker Transfer Assistance None Accompanied by Patient Identification Verified (Name & Yes Yes ) Patient Requires Transmission-Based No No Precautions Safety Precautions NA Height and Weight Height 5 ft 9 in Weight 236 lb Weight in Pounds 236.0 lbs Weight Measurement Method Estimated by Patient Body Mass Index (BMI) 34.8 34.8 BMI Classification Obese Obese BSA - [place] 2.22 Vital Signs Temperature (97.8 F-99.1 F) 96.9 F L 96.9 F L Temperature Source Temporal Temporal Pulse Rate (60-100) 98 93 Pulse Location Monitor Monitor Respiratory Rate (12-18) 16 Respiratory rate source Observation Oxygen Delivery Method Room Air Blood Pressure (90/60-120/80) 140/67 H 135/67 H Blood Pressure Mean (mm Hg) 91 89 Source Monitor Monitor Position Sitting Blood Pressure Location Left Arm History Since Last Visit- (Skip if this is Patient's initial visit) Have you changed medications since your No No last visit? Any new allergies or adverse reactions No No Had a fall/change in ADL's that may No No increase risk of falls Signs or symptoms of abuse and/or No No neglect since last visit Have you been in the hospital since your No No last visit? Has dressing in place as prescribed Yes Yes Has compression in place as prescribed N/A N/A Has offloadiing in place as prescribed N/A N/A Experienced any changes in pain level or No No management Left Footwear Regular Shoe Regular Shoe Right Footwear Regular Shoe Regular Shoe Pain Scale: 0-10 Numeric Is Patient Pain Free? No Yes WC - Nurse 1 - General Ulcer Measurement Start: 04/26/22 08:04 Freq: Status: Active Protocol: Activity Type Activity Date Activity User E-sign Co-sign Detail Recorded Client Recorded Date Recorded By Document 04/26/22 08:05 [id number] 04/26/22 08:14 KR Document 05/03/22 08:23 [facility] [id number] 05/03/22 08:29 [facility] 04/26/22 05/03/22 08:05 08:23 Wound Center Nurse 1 #2 R buttock -Combined with other wound No No -Current Size (cm) - Length 0.1 2.5 -Current Size (cm) - Width 0.1 3.1 -Current Size (cm) - Depth 0.1 0.1 -Total Square Cm 0.01 7.75 -Date of Last Picture (Recall this 04/26/22 05/03/22 field) -Photo Taken Yes Yes -Epithelialization Small 1-33% -Tunneling No No -Undermining/Tunneling No No -Circular Undermining No No -Change in Wound Grade/Stage No -Exudate Amt Small Small -Exudate Type Serosanguineous Sanguineous -Wound Margin Distinct, Flat & Intact Outline Attached -Granulation Amt Small (1-33%) Large (67-100%) -Granulation Quality N/A Red -Slough/Fibrin Yes No -Necrosis Amt Medium (34-66%) None Present (0 %) -Necrotic Tissue Type Eschar -Structure Exposed N/A -Texture (Alysia-wound Skin Appearance) Assessed, Assessed, Excoriation Scarring -Moisture (Alysia-wound Skin Appearance) No Abnormality, Assessed,Dry/ Assessed Scaly -Color (Alysia-wound Skin Appearance) Assessed, Assessed, Erythema Erythema -Temperature (Alysia-wound Skin No Abnormality No Abnormality Appearance) (Pt Warm) (Pt Warm) -Tenderness on Palpation (Alysia-wound No No Skin Appearance) -Ulcer Cleansing Rinsed/ Rinsed/ Irrigated with Irrigated with Saline Saline -Foul Odor after Cleansing No No -Anesthetic Used 5% Lidocaine 5% Lidocaine Gel Gel #1 L buttock -Combined with other wound No -Current Size (cm) - Length 2.6 0.1 -Current Size (cm) - Width 2 0.1 -Current Size (cm) - Depth 0.1 0.1 -Total Square Cm 5.2 0.01 -Date of Last Picture (Recall this 04/26/22 05/03/22 field) -Photo Taken Yes Yes -Epithelialization Large 67-100% -Tunneling No No -Undermining/Tunneling No No -Circular Undermining No No -Change in Wound Grade/Stage No -Exudate Amt Medium None Present -Exudate Type Serosanguineous -Granulation Amt None Present (0 %) -Granulation Quality N/A -Necrosis Amt Medium (34-66%) -Necrotic Tissue Type Eschar -Structure Exposed N/A -Texture (Alysia-wound Skin Appearance) Assessed, Assessed, Excoriation Scarring -Moisture (Alysia-wound Skin Appearance) No Abnormality, Assessed,Dry/ Assessed Scaly -Color (Alysia-wound Skin Appearance) Assessed, Assessed Erythema, Hemosiderin Staining -Temperature (Alysia-wound Skin No Abnormality No Abnormality Appearance) (Pt Warm) (Pt Warm) -Tenderness on Palpation (Alysia-wound No No Skin Appearance) -Ulcer Cleansing Rinsed/ Rinsed/ Irrigated with Irrigated with Saline Saline -Foul Odor after Cleansing No Yes, Due to Product Use -Anesthetic Used 5% Lidocaine 5% Lidocaine Gel Gel WC - Nurse 2 - General Ulcer CM Notes Start: 04/26/22 08:04 Freq: Status: Active Protocol: Activity Type Activity Date Activity User E-sign Co-sign Detail Recorded Client Recorded Date Recorded By Document 04/26/22 08:31 MW [id number] 04/26/22 08:37 MW Document 05/03/22 08:47 MW [id number] 05/03/22 08:53 MW 04/26/22 05/03/22 08:31 08:47 Wound Center Nurse 2 #2 R buttock -Time 08:32 08:47 -Correct Patient Yes Yes -Correct Side, Site, Position Yes Yes -Correct Procedure Yes Yes -Procedure Performed Yes Yes -Type of Procedure Debridement Debridement -Clinical Debridement Subcutaneous Subcutaneous -Tissue Removed Subcutaneous Subcutaneous -Post Debridement (cm) - Length 3.0 5.5 -Post Debridement (cm) - Width 3.0 5.5 -Post Debridement (cm) - Depth 0.1 0.1 -Total Square (Post) (cm) 9.00 30.25 -Area of Debridement (cm) - Length 3.0 5.5 -Area of Debridement (cm) - Width 3.0 5.5 -Total Square (Area) (cm) 9.00 30.25 -Tunneling No No -Undermining/Tunneling No No -Circular Undermining No No -Wound/Ulcer Outcome Not Healed Not Healed -Ulcer Cleansing Rinsed/ Rinsed/ Irrigated with Irrigated with Saline Saline -Foul Odor after Cleansing No No -Bioengineered Tissue No No -Bleeding Controlled with Pressure Pressure -Treatment Response Procedure Procedure Tolerated Well Tolerated Well -Offloading No No -Debridement - Subq, 1st 20sq cm Yes Yes -Debridement, SubQ, ea addt'l 20sq cm 1 or part thereof #1 L buttock -Time 08:32 08:48 -Correct Patient Yes Yes -Correct Side, Site, Position Yes Yes -Correct Procedure Yes Yes -Procedure Performed Yes No -Type of Procedure Debridement -Clinical Debridement Subcutaneous -Tissue Removed Subcutaneous -Post Debridement (cm) - Length 1.5 0 -Post Debridement (cm) - Width 4.5 0 -Post Debridement (cm) - Depth 0.1 0 -Total Square (Post) (cm) 6.75 0 -Area of Debridement (cm) - Length 1.5 -Area of Debridement (cm) - Width 4.5 -Total Square (Area) (cm) 6.75 -Tunneling No No -Undermining/Tunneling No No -Circular Undermining No No -Wound/Ulcer Outcome Not Healed Healed- Epithelialized -Ulcer Cleansing Rinsed/ Irrigated with Saline -Foul Odor after Cleansing No -Bioengineered Tissue No -Bleeding Controlled with Pressure -Treatment Response Procedure Tolerated Well -Offloading No -Debridement - Subq, 1st 20sq cm No No Pain Scale: 0-10 Numeric Is Patient Pain Free? Yes Yes - Nurse 3 - General Ulcer D/C NN Start: 04/26/22 08:04 Freq: Status: Active Protocol: Activity Type Activity Date Activity User E-sign Co-sign Detail Recorded Client Recorded Date Recorded By Document 04/26/22 08:48 HONEY [id number] 04/26/22 08:48 KR Document 05/03/22 09:03 AK [id number] 05/03/22 09:04 AK 04/26/22 05/03/22 08:48 09:03 Wound Care Nurse 3 #2 R buttock -Ulcer Cleansing Rinsed/ Irrigated with Saline -Primary Dressing Applied Mepilex Border Mepilex Border -Other Dressing xeroform xeroform -Mepilex Border 2 1 #1 L buttock -Ulcer Cleansing Rinsed/ Irrigated with Saline -Foul Odor after Cleansing No -Negative Pressure Wound Therapy N/A -Primary Dressing Applied Mepilex Border -Other Dressing xeroform -Mepilex Border 0 Pain Scale: 0-10 Numeric Is Patient Pain Free? Yes Yes - Visit Discharge Discharge Condition Stable Stable Ambulatory Status Ambulatory, Walker Transportation Private Auto Private Auto Accompanied by Medication Reconcilliation completed & Yes provided to patient/care provider Clinical Summary of Care Provided Yes Assessment/Plan Assessment/Plan (1) Peripheral neuropathy: CODE(S): G62.9 - Polyneuropathy, unspecified (2) Type 2 diabetes mellitus without complications: CODE(S): E11.9 - Type 2 diabetes mellitus without complications (3) Stage II pressure ulcer of buttock: CODE(S): L89.302 - Pressure ulcer of unspecified buttock, stage 2 PLAN: Wash bilateral buttocks with antibacterial soap. Pat dry. Apply Xeroform dressings to bilateral buttocks cheeks Cover with either ABD or soft dressings with adhesive Follow-up in 1 week
[2022-05-10 08:33] VITALS: BP 154/69; PULSE 78; RESP 17; TEMP 36.1; BMI 34.8
--- NOTE | 2022-05-10 10:54 | PCM.WC.PN ---
History of Present Illness Date of Service: 05/10/22 Chief Complaint: Follow-up on bilateral buttocks wounds from shearing. 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 Keeps developing these shearing on his buttocks cheeks. From sitting in a recliner all day and sleeps in it all night. Patient states had back surgery and it left him with peripheral neuropathy from his knees down. Patient has been using a doughnut to sit on and he does have the crates also to sit on. Patient was seen by his family doctor and referred here. Patient has been using Calmoseptine cream for the open areas that are very superficial. There appears to be some discoloration like he almost gets like little blood blisters down there that flatten out from the shearing. Progress of Wound: Left buttocks looks much better and is healed still has dark erythematous skin color. Right buttocks scabs and pulls open. Debrided a lot of the skin that has accumulated on top of the skin try to make it smooth using nippers and scissors. Is improving we will continue the Xeroform dressing Subjective Subjective still feels that the left one is opening and closing and now is developed some areas in the ischial area on both legs lower buttocks. Objective Data Objective Data Suggested to the to apply urea cream and the base of each buttocks that are still technically closed then apply Xeroform dressing on top. Cover with gauze dressings. For the ischial areas I would suggest 2 x 2's covered with Tegaderm dressings to hold in place from his shearing. Vital Signs: Vital Signs Temp Pulse Resp BP O2 Del Method 96.9 F L 78 17 154/69 H Room Air 05/10/22 08:33 05/10/22 08:33 05/10/22 08:33 05/10/22 08:33 05/03/22 08:23 Oxygen Delivery Method Room Air Weight: 236 lb Body Mass Index (BMI) 34.8 Physical Exam Const oriented x3 General Appearance: cooperative Exam Limitations: no limitations HEENT normocephalic Head and Scalp: normal to inspection Face and Sinus: normal facial exam Nose: external nose normal General Ear: hearing grossly impaired External Ear: external ears normal Mouth: oral and palatal mucosa normal Eyes PERRL General Eye: normal appearance of both eyes Neck full ROM General: normal visual inspection Resp normal respiratory effort Effort and Inspection: able to speak in complete sentences Auscultation: clear to auscultation bilaterally Cardio regular rate and regular rhythm Palpation: normal PMI Rate: regular rate Rhythm: regular rhythm GI Auscultation: normoactive bowel sounds Palpation: soft and no hepatosplenomegaly external exam normal Back/Spine Cervical Spine: cervical ROM normal Thoracic Spine / Upper Back: normal to inspection Lumbar Spine / Lower Back: normal to inspection Extremity normal to inspection General Extremity: normal exam except as noted Skin Skin Narrative: Positive open areas shearing on bilateral buttocks cheeks on an erythematous contused buttocks. Mostly superficial but scabbed over Neuro oriented x3 Psych Appearance: grossly normal Speech: normal speech Thought Content: normal thought content Judgement: judgement good Debridement Note Debridement Note Wound debrided: Right buttocks Laterality: Right Wound Grade/Stage: Stage II Type of Debridement: Excisional debridement Anesthesia Used: 4% Lidocaine Solution and 5% Lidocaine Gel Depth: Down to and including healthy tissue Percentage of wound debrided: 100 Instrument Used: 7mm curette and - (Scissors) Tissue Removed: Devitalized tissue Severity: Limited To Skin Breakdown Amount of bleeding with debridement: Mild Bleeding Controlled with: Pressure Patient tolerated procedure: Patient tolerated procedure well Post-Debridement Measurements and Additional Note: Post-Debridement Measurements/Treatment - Nurse 1 - General Ulcer Assessment Start: 04/26/22 08:04 Freq: Status: Active Protocol: [email or web address] Activity Type Activity Date Activity User E-sign Co-sign Detail Recorded Client Recorded Date Recorded By Document 04/26/22 08:05 KR [id number] 04/26/22 08:14 KR Document 05/03/22 08:23 [facility] [id number] 05/03/22 08:29 [facility] Document 05/10/22 08:33 ML [id number] 05/10/22 08:37 ML 04/26/22 05/03/22 05/10/22 08:05 08:23 08:33 - Today's Visit Information Type of service Follow-up Visit Follow-up Visit Follow-up Visit (Physician/OPTO MECHANICAL ENGINEER (Physician/OPTO MECHANICAL ENGINEER (Physician/OPTO MECHANICAL ENGINEER ) ) ) Arrival Mode Ambulatory, Ambulatory, Ambulatory, Wheelchair Walker Walker Transfer Assistance None None Accompanied by Patient Identification Verified (Name & Yes Yes Yes ) Patient Requires Transmission-Based No No No Precautions Safety Precautions NA NA Height and Weight Height 5 ft 9 in Weight 236 lb Weight in Pounds 236.0 lbs Weight Measurement Method Estimated by Patient Body Mass Index (BMI) 34.8 34.8 34.8 BMI Classification Obese Obese Obese BSA - [place] 2.22 Vital Signs Temperature (97.8 F-99.1 F) 96.9 F L 96.9 F L 96.9 F L Temperature Source Temporal Temporal Temporal Pulse Rate (60-100) 98 93 78 Pulse Location Monitor Monitor Monitor Respiratory Rate (12-18) 16 17 Respiratory rate source Observation Observation Oxygen Delivery Method Room Air Blood Pressure (90/60-120/80) 140/67 H 135/67 H 154/69 H Blood Pressure Mean (mm Hg) 91 89 97 Source Monitor Monitor Monitor Position Sitting Sitting Blood Pressure Location Left Arm Left Arm History Since Last Visit- (Skip if this is Patient's initial visit) Have you changed medications since your No No No last visit? Any new allergies or adverse reactions No No No Had a fall/change in ADL's that may No No No increase risk of falls Signs or symptoms of abuse and/or No No No neglect since last visit Have you been in the hospital since your No No No last visit? Has dressing in place as prescribed Yes Yes Yes Has compression in place as prescribed N/A N/A N/A Has offloadiing in place as prescribed N/A N/A N/A Experienced any changes in pain level or No No No management Left Footwear Regular Shoe Regular Shoe Regular Shoe Right Footwear Regular Shoe Regular Shoe Regular Shoe Pain Scale: 0-10 Numeric Is Patient Pain Free? No Yes Yes WC - Nurse 1 - General Ulcer Measurement Start: 04/26/22 08:04 Freq: Status: Active Protocol: Activity Type Activity Date Activity User E-sign Co-sign Detail Recorded Client Recorded Date Recorded By Document 04/26/22 08:05 KR [id number] 04/26/22 08:14 KR Document 05/03/22 08:23 [facility] [id number] 05/03/22 08:29 [facility] Document 05/10/22 08:33 ML [id number] 05/10/22 08:37 ML 04/26/22 05/03/22 05/10/22 08:05 08:23 08:33 Wound Center Nurse 1 #2 R buttock -Combined with other wound No No -Current Size (cm) - Length 0.1 2.5 0.1 -Current Size (cm) - Width 0.1 3.1 0.1 -Current Size (cm) - Depth 0.1 0.1 0.1 -Total Square Cm 0.01 7.75 0.01 -Date of Last Picture (Recall this 04/26/22 05/03/22 05/10/22 field) -Photo Taken Yes Yes Yes -Epithelialization Small 1-33% Large 67-100% -Tunneling No No -Undermining/Tunneling No No -Circular Undermining No No -Change in Wound Grade/Stage No -Exudate Amt Small Small Small -Exudate Type Serosanguineous Sanguineous Serosanguineous -Wound Margin Distinct, Flat & Intact Flat & Intact Outline Attached -Granulation Amt Small (1-33%) Large (67-100%) Medium (34-66%) -Granulation Quality N/A Red Red -Slough/Fibrin Yes No No -Necrosis Amt Medium (34-66%) None Present (0 None Present (0 %) %) -Necrotic Tissue Type Eschar -Structure Exposed N/A -Texture (Alysia-wound Skin Appearance) Assessed, Assessed, Assessed Excoriation Scarring -Moisture (Alysia-wound Skin Appearance) No Abnormality, Assessed,Dry/ Assessed Assessed Scaly -Color (Alysia-wound Skin Appearance) Assessed, Assessed, Assessed, Erythema Erythema Erythema -Temperature (Alysia-wound Skin No Abnormality No Abnormality No Abnormality Appearance) (Pt Warm) (Pt Warm) (Pt Warm) -Tenderness on Palpation (Alysia-wound No No Yes Skin Appearance) -Ulcer Cleansing Rinsed/ Rinsed/ Rinsed/ Irrigated with Irrigated with Irrigated with Saline Saline Saline -Foul Odor after Cleansing No No No -Anesthetic Used 5% Lidocaine 5% Lidocaine 4% Lidocaine Gel Gel Solution #1 L buttock -Combined with other wound No -Current Size (cm) - Length 2.6 0.1 0.1 -Current Size (cm) - Width 2 0.1 0.1 -Current Size (cm) - Depth 0.1 0.1 0.1 -Total Square Cm 5.2 0.01 0.01 -Date of Last Picture (Recall this 04/26/22 05/03/22 field) -Photo Taken Yes Yes -Epithelialization Large 67-100% -Tunneling No No -Undermining/Tunneling No No -Circular Undermining No No -Change in Wound Grade/Stage No -Exudate Amt Medium None Present Small -Exudate Type Serosanguineous Serosanguineous -Granulation Amt None Present (0 Large (67-100%) %) -Granulation Quality N/A Red -Slough/Fibrin No -Necrosis Amt Medium (34-66%) Small (1-33%) -Necrotic Tissue Type Eschar -Structure Exposed N/A -Texture (Alysia-wound Skin Appearance) Assessed, Assessed, Assessed Excoriation Scarring -Moisture (Alysia-wound Skin Appearance) No Abnormality, Assessed,Dry/ Assessed Assessed Scaly -Color (Alysia-wound Skin Appearance) Assessed, Assessed Assessed Erythema, Hemosiderin Staining -Temperature (Alysia-wound Skin No Abnormality No Abnormality No Abnormality Appearance) (Pt Warm) (Pt Warm) (Pt Warm) -Tenderness on Palpation (Alysia-wound No No Yes Skin Appearance) -Ulcer Cleansing Rinsed/ Rinsed/ Rinsed/ Irrigated with Irrigated with Irrigated with Saline Saline Saline -Foul Odor after Cleansing No Yes, Due to No Product Use -Anesthetic Used 5% Lidocaine 5% Lidocaine 4% Lidocaine Gel Gel Solution WC - Nurse 2 - General Ulcer CM Notes Start: 04/26/22 08:04 Freq: Status: Active Protocol: Activity Type Activity Date Activity User E-sign Co-sign Detail Recorded Client Recorded Date Recorded By Document 04/26/22 08:31 MW [id number] 04/26/22 08:37 MW Document 05/03/22 08:47 MW [id number] 05/03/22 08:53 MW Document 05/10/22 08:55 MW [id number] 05/10/22 09:13 MW 04/26/22 05/03/22 05/10/22 08:31 08:47 08:55 Wound Center Nurse 2 #2 R buttock -Time 08:32 08:47 08:55 -Correct Patient Yes Yes Yes -Correct Side, Site, Position Yes Yes Yes -Correct Procedure Yes Yes Yes -Procedure Performed Yes Yes Yes -Type of Procedure Debridement Debridement Debridement -Clinical Debridement Subcutaneous Subcutaneous Subcutaneous -Tissue Removed Subcutaneous Subcutaneous Subcutaneous -Post Debridement (cm) - Length 3.0 5.5 0.1 -Post Debridement (cm) - Width 3.0 5.5 0.1 -Post Debridement (cm) - Depth 0.1 0.1 0.1 -Total Square (Post) (cm) 9.00 30.25 0.01 -Area of Debridement (cm) - Length 3.0 5.5 0.1 -Area of Debridement (cm) - Width 3.0 5.5 0.1 -Total Square (Area) (cm) 9.00 30.25 0.01 -Tunneling No No No -Undermining/Tunneling No No No -Circular Undermining No No No -Wound/Ulcer Outcome Not Healed Not Healed Not Healed -Ulcer Cleansing Rinsed/ Rinsed/ Rinsed/ Irrigated with Irrigated with Irrigated with Saline Saline Saline -Foul Odor after Cleansing No No No -Bioengineered Tissue No No No -Bleeding Controlled with Pressure Pressure Pressure -Treatment Response Procedure Procedure Procedure Tolerated Well Tolerated Well Tolerated Well -Offloading No No No -Debridement - Subq, 1st 20sq cm Yes Yes Yes -Debridement, SubQ, ea addt'l 20sq cm 1 or part thereof #1 L buttock -Time 08:32 08:48 09:12 -Correct Patient Yes Yes Yes -Correct Side, Site, Position Yes Yes Yes -Correct Procedure Yes Yes Yes -Procedure Performed Yes No Yes -Type of Procedure Debridement Debridement -Clinical Debridement Subcutaneous Subcutaneous -Tissue Removed Subcutaneous Subcutaneous -Post Debridement (cm) - Length 1.5 0 0.1 -Post Debridement (cm) - Width 4.5 0 0.1 -Post Debridement (cm) - Depth 0.1 0 0.1 -Total Square (Post) (cm) 6.75 0 0.01 -Area of Debridement (cm) - Length 1.5 0.1 -Area of Debridement (cm) - Width 4.5 0.1 -Total Square (Area) (cm) 6.75 0.01 -Tunneling No No No -Undermining/Tunneling No No No -Circular Undermining No No No -Wound/Ulcer Outcome Not Healed Healed- Not Healed Epithelialized -Ulcer Cleansing Rinsed/ Rinsed/ Irrigated with Irrigated with Saline Saline -Foul Odor after Cleansing No No -Bioengineered Tissue No No -Bleeding Controlled with Pressure Pressure -Treatment Response Procedure Procedure Tolerated Well Tolerated Well -Offloading No No -Debridement - Subq, 1st 20sq cm No No No Pain Scale: 0-10 Numeric Is Patient Pain Free? Yes Yes Yes - Nurse 3 - General Ulcer D/C NN Start: 04/26/22 08:04 Freq: Status: Active Protocol: Activity Type Activity Date Activity User E-sign Co-sign Detail Recorded Client Recorded Date Recorded By Document 04/26/22 08:48 KR [id number] 04/26/22 08:48 KR Document 05/03/22 09:03 AK [id number] 05/03/22 09:04 AK Document 05/10/22 09:31 AK [id number] 05/10/22 09:33 AK 04/26/22 05/03/22 05/10/22 08:48 09:03 09:31 Wound Care Nurse 3 #2 R buttock -Ulcer Cleansing Rinsed/ Rinsed/ Irrigated with Irrigated with Saline Saline -Foul Odor after Cleansing No -Negative Pressure Wound Therapy N/A -Primary Dressing Applied Mepilex Border Mepilex Border Mepilex Border -Other Dressing xeroform xeroform xeroform -Mepilex Border 2 1 0 #1 L buttock -Ulcer Cleansing Rinsed/ Rinsed/ Irrigated with Irrigated with Saline Saline -Foul Odor after Cleansing No No -Negative Pressure Wound Therapy N/A -Primary Dressing Applied Mepilex Border Mepilex Border -Other Dressing xeroform xeroform -Mepilex Border 0 2 Pain Scale: 0-10 Numeric Is Patient Pain Free? Yes Yes Yes - Visit Discharge Discharge Condition Stable Stable Stable Ambulatory Status Ambulatory, Ambulatory Walker Transportation Private Auto Private Auto Private Auto Accompanied by Medication Reconcilliation completed & Yes No provided to patient/care provider Clinical Summary of Care Provided Yes No Additional Wound Wound debrided: Left buttocks Laterality: Left Wound Grade/Stage: Stage II shearing Type of Debridement: Excisional debridement Anesthesia Used: 4% Lidocaine Solution and 5% Lidocaine Gel Depth: Down to and including healthy tissue Percentage of wound debrided: 100 Instrument Used: 7mm curette and - (Scissors) Tissue Removed: Devitalized tissue Severity: Limited To Skin Breakdown Amount of bleeding with debridement: Mild Bleeding Controlled with: Compression and gauze Patient tolerated procedure: Patient tolerated procedure well Assessment/Plan Assessment/Plan (1) Peripheral neuropathy: CODE(S): G62.9 - Polyneuropathy, unspecified (2) Type 2 diabetes mellitus without complications: CODE(S): E11.9 - Type 2 diabetes mellitus without complications (3) Stage II pressure ulcer of buttock: CODE(S): L89.302 - Pressure ulcer of unspecified buttock, stage 2 PLAN: Wash bilateral buttocks with antibacterial soap. Pat dry. Apply amLactin cream to buttocks cheeks sparingly then Xeroform dressings to bilateral buttocks cheeks Cover with either ABD or soft dressings with adhesive Follow-up in 1 week
== END 2022-05-11 23:59 | disposition home or self-care (01) ==
LOC: WC 08:30
PROVIDERS: PCP Internal Medicine; Visit Provider Nurse Practitioner
DX: L89.322 Pressure ulcer of left buttock, stage 2 (principal); L89.312 Pressure ulcer of right buttock, stage 2; E11.42 Type 2 diabetes mellitus with diabetic polyneuropathy; I25.10 Atherosclerotic heart disease of native coronary artery without angina pectoris; Z87.891 Personal history of nicotine dependence; I25.2 Old myocardial infarction; J45.909 Unspecified asthma, uncomplicated; N40.0 Benign prostatic hyperplasia without lower urinary tract symptoms; M79.7 Fibromyalgia; K21.9 Gastro-esophageal reflux disease without esophagitis; E66.9 Obesity, unspecified; Z68.34 Body mass index [BMI] 34.0-34.9, adult; Z79.899 Other long term (current) drug therapy; Z79.82 Long term (current) use of aspirin; Z79.84 Long term (current) use of oral hypoglycemic drugs
CPT/HCPCS: 11042; 11045; 99213; G0463

== ENCOUNTER → 2022-06-01 | Outpatient (CLI) | payer MEDICARE, SELFPAY ==
[2022-05-31 09:48] VITALS: BMI 37.9
--- NOTE | 2022-06-01 12:51 | VDLE_ITS ---
Reason For Study: swelling Procedure LEFT This is a venous duplex using B-mode, color GSV is normal. flow and spectral Doppler. CFV is compressible, spontaneous, phasic, Exam performed in department. competent, and demonstrates normal The exam was abbreviated due to the COVID 19 augmentation. protocol. FV is compressible, spontaneous, phasic, The exam was diagnostic. competent and demonstrates normal A preliminary report was called and/or faxed augmentation. to Dr. Munroe. POP V is compressible, spontaneous, phasic, competent and demonstrates normal augmentation. T/P Trunk is compressible. PTV is compressible. LT PerV is compressible. VL/Venous Duplex US, Unilateral Interpretation Summary There is no evidence of left lower extremity deep vein thrombosis. Left great s aphenous vein appears patent and compressible segmentally. Abbreviated COVID-19 protocol utilized Ordering Physician: Eulalia Munroe Performed By: Avtar Wheatley RVT
== END | disposition home or self-care (01) ==
LOC: CVS 12:51
PROVIDERS: PCP Internal Medicine; Referring Provider Internal Medicine; Visit Provider Internal Medicine
DX: R07.9 Chest pain, unspecified (principal)
CPT/HCPCS: 93971

== ENCOUNTER → 2022-06-02 | Outpatient (REF) | payer MEDICARE, SELFPAY ==
[2022-05-31 09:48] VITALS: BMI 37.9
[2022-06-02 12:42] LABS: HIV - WCH Non-Reactive (Nonreactive)
[2022-06-05 12:07] LABS: Hepatitis B Core Ab Total Negative (Negative)
== END ==
LOC: EMPH 10:43
PROVIDERS: PCP Internal Medicine
DX: Z20.6 Contact with and (suspected) exposure to human immunodeficiency virus [HIV] (principal)
CPT/HCPCS: 86703; 86704; 86706; 86803; 87340

== ENCOUNTER 2022-06-07 08:45 | Outpatient (RCR) | payer MEDICARE, SELFPAY ==
[2017-01-10 11:37] VITALS: BMI 37.9
[2022-05-12 00:48] VITALS: BP 154/69; PULSE 78; RESP 17; TEMP 36.1; BMI 34.8
[2022-05-17 08:27] VITALS: BP 130/74; PULSE 70; TEMP 36; BMI 34.8
--- NOTE | 2022-05-17 08:55 | PN.PCM_ITS ---
History of Present Illness Date of Service: 05/17/22 Chief Complaint: Follow-up on bilateral buttocks wounds from shearing. 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 Keeps developing these shearing on his buttocks cheeks. From sitting in a recliner all day and sleeps in it all night. Patient states had back surgery and it left him with peripheral neuropathy from his knees down. Patient has been using a doughnut to sit on and he does have the crates also to sit on. Patient was seen by his family doctor and referred here. Patient has been using Calmoseptine cream for the open areas that are very superficial. There appears to be some discoloration like he almost gets like little blood blisters down there that flatten out from the shearing. Progress of Wound: The left buttocks is smaller with the darkened skin and is completely healed very supple no pain the right buttocks is still having slits of openings. Turgor is much more supple and soft. Still has the darkened discoloration. Patient already started the fluconazole and and should continue using amLactin cream to the ischium's were gets dry and the buttocks for underneath the Xeroform dressings to help heal. Subjective Subjective states the amLactin cream burned his skin on the right probably in the open areas. We will only use on closed areas. Objective Data Objective Data As above in the progress notes healing well we will see him only in 2 weeks areas are smaller. Vital Signs: Vital Signs Temp Pulse Resp BP 96.8 F L 70 17 130/74 H 05/17/22 08:27 05/17/22 08:27 05/12/22 00:48 05/17/22 08:27 Weight: 236 lb Body Mass Index (BMI) 34.8 Physical Exam Const oriented x3 General Appearance: cooperative Exam Limitations: no limitations HEENT normocephalic Head and Scalp: normal to inspection Face and Sinus: normal facial exam Nose: external nose normal General Ear: hearing grossly impaired External Ear: external ears normal Mouth: oral and palatal mucosa normal Eyes PERRL General Eye: normal appearance of both eyes Neck full ROM General: normal visual inspection Resp normal respiratory effort Effort and Inspection: able to speak in complete sentences Auscultation: clear to auscultation bilaterally Cardio regular rate and regular rhythm Palpation: normal PMI Rate: regular rate Rhythm: regular rhythm GI Auscultation: normoactive bowel sounds Palpation: soft and no hepatosplenomegaly external exam normal Back/Spine Cervical Spine: cervical ROM normal Thoracic Spine / Upper Back: normal to inspection Lumbar Spine / Lower Back: normal to inspection Extremity normal to inspection General Extremity: normal exam except as noted Skin Skin Narrative: Positive open areas shearing on bilateral buttocks cheeks on an erythematous contused buttocks. Mostly superficial but scabbed over Neuro oriented x3 Psych Appearance: grossly normal Speech: normal speech Thought Content: normal thought content Judgement: judgement good Debridement Note Debridement Note Post-Debridement Measurements and Additional Note: Post-Debridement Measurements/Treatment - Nurse 1 - General Ulcer Assessment Start: 05/17/22 08:27 Freq: Status: Active Protocol: KAMILA Activity Type Activity Date Activity User E-sign Co-sign Detail Recorded Client Recorded Date Recorded By Document 05/17/22 08:27 HONEY [id number] 05/17/22 08:31 HONEY 05/17/22 08:27 WC - Today's Visit Information Type of service Follow-up Visit (Physician/EMBEDDED ENGINEER ) Arrival Mode Ambulatory Patient Identification Verified (Name & Yes ) Height and Weight Body Mass Index (BMI) 34.8 BMI Classification Obese Vital Signs Temperature (97.8 F-99.1 F) 96.8 F L Temperature Source Temporal Pulse Rate (60-100) 70 Pulse Location Monitor Blood Pressure (90/60-120/80) 130/74 H Blood Pressure Mean (mm Hg) 92 Source Monitor Position Sitting History Since Last Visit- (Skip if this is Patient's initial visit) Have you changed medications since your No last visit? Any new allergies or adverse reactions No Had a fall/change in ADL's that may No increase risk of falls Signs or symptoms of abuse and/or No neglect since last visit Have you been in the hospital since your No last visit? Has dressing in place as prescribed Yes Has compression in place as prescribed N/A Has offloadiing in place as prescribed N/A Experienced any changes in pain level or No management Left Footwear Regular Shoe Right Footwear Regular Shoe Pain Scale: 0-10 Numeric Is Patient Pain Free? Yes - Nurse 1 - General Ulcer Measurement Start: 05/17/22 08:27 Freq: Status: Active Protocol: Activity Type Activity Date Activity User E-sign Co-sign Detail Recorded Client Recorded Date Recorded By Document 05/17/22 08:27 KR [id number] 05/17/22 08:31 KR 05/17/22 08:27 Wound Center Nurse 1 #1 L buttock -Current Size (cm) - Length 0.1 -Current Size (cm) - Width 0.1 -Current Size (cm) - Depth 0.1 -Total Square Cm 0.01 -Exudate Amt None Present -Wound Margin Distinct, Outline Attached -Granulation Amt Large (67-100%) -Granulation Quality [place] -Texture (Alysia-wound Skin Appearance) Assessed, Scarring -Moisture (Alysia-wound Skin Appearance) Assessed,Dry/ Scaly -Color (Alysia-wound Skin Appearance) No Abnormality, Assessed -Temperature (Alysia-wound Skin No Abnormality Appearance) (Pt Warm) -Tenderness on Palpation (Alysia-wound No Skin Appearance) -Ulcer Cleansing Rinsed/ Irrigated with Saline -Foul Odor after Cleansing No -Anesthetic Used 5% Lidocaine Gel #2 R buttock -Current Size (cm) - Length 0.1 -Current Size (cm) - Width 0.1 -Current Size (cm) - Depth 0.1 -Total Square Cm 0.01 -Exudate Amt None Present -Wound Margin Distinct, Outline Attached -Granulation Amt Medium (34-66%) -Granulation Quality [place] -Texture (Alysia-wound Skin Appearance) Assessed, Scarring -Moisture (Alysia-wound Skin Appearance) Assessed,Dry/ Scaly -Color (Alysia-wound Skin Appearance) No Abnormality, Assessed -Temperature (Alysia-wound Skin No Abnormality Appearance) (Pt Warm) -Tenderness on Palpation (Alysia-wound No Skin Appearance) -Ulcer Cleansing Rinsed/ Irrigated with Saline -Foul Odor after Cleansing No -Anesthetic Used 5% Lidocaine Gel WC - Nurse 2 - General Ulcer CM Notes Start: 05/17/22 08:27 Freq: Status: Active Protocol: Activity Type Activity Date Activity User E-sign Co-sign Detail Recorded Client Recorded Date Recorded By Document 05/17/22 08:35 MW [id number] 05/17/22 08:43 MW 05/17/22 08:35 Wound Center Nurse 2 #1 L buttock -Time 08:38 -Correct Patient Yes -Correct Side, Site, Position Yes -Correct Procedure Yes -Procedure Performed No -Post Debridement (cm) - Length 0 -Post Debridement (cm) - Width 0 -Post Debridement (cm) - Depth 0 -Total Square (Post) (cm) 0 -Wound/Ulcer Outcome Healed- Epithelialized #2 R buttock -Time 08:37 -Correct Patient Yes -Correct Side, Site, Position Yes -Correct Procedure Yes -Procedure Performed Yes -Type of Procedure Debridement -Clinical Debridement Subcutaneous -Tissue Removed Subcutaneous -Post Debridement (cm) - Length 8.0 -Post Debridement (cm) - Width 5.5 -Post Debridement (cm) - Depth 0.1 -Total Square (Post) (cm) 44.00 -Area of Debridement (cm) - Length 8.0 -Area of Debridement (cm) - Width 5.5 -Total Square (Area) (cm) 44.00 -Tunneling No -Undermining/Tunneling No -Circular Undermining No -Wound/Ulcer Outcome Not Healed -Ulcer Cleansing Rinsed/ Irrigated with Saline -Foul Odor after Cleansing No -Bioengineered Tissue No -Bleeding Controlled with Pressure -Treatment Response Procedure Tolerated Well -Offloading No -Debridement - Subq, 1st 20sq cm Yes -Debridement, SubQ, ea addt'l 20sq cm 2 or part thereof Pain Scale: 0-10 Numeric Is Patient Pain Free? Yes Assessment/Plan Assessment/Plan (1) Peripheral neuropathy: CODE(S): G62.9 - Polyneuropathy, unspecified (2) Type 2 diabetes mellitus without complications: CODE(S): E11.9 - Type 2 diabetes mellitus without complications (3) Stage II pressure ulcer of buttock: CODE(S): L89.302 - Pressure ulcer of unspecified buttock, stage 2 PLAN: Wash bilateral buttocks with antibacterial soap. Pat dry. Apply amLactin cream to left buttocks cheeks sparingly. Right buttocks cheek apply Xeroform dressings then Confeel dressing Continue fluconazole antifungal Follow-up in 2 weeks
[2022-05-31 09:06] VITALS: BP 140/63; PULSE 84; TEMP 36.1; BMI 34.8
--- NOTE | 2022-05-31 11:39 | PCM.WC.PN ---
History of Present Illness Date of Service: 05/31/22 Chief Complaint: Follow-up on bilateral buttocks wounds from shearing. 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 Keeps developing these shearing on his buttocks cheeks. From sitting in a recliner all day and sleeps in it all night. Patient states had back surgery and it left him with peripheral neuropathy from his knees down. Patient has been using a doughnut to sit on and he does have the crates also to sit on. Patient was seen by his family doctor and referred here. Patient has been using Calmoseptine cream for the open areas that are very superficial. There appears to be some discoloration like he almost gets like little blood blisters down there that flatten out from the shearing. Progress of Wound: The wound has worsened again and back to square 1 with sizing. is gone back to Calmoseptine instead of calling us. Suggested she use Aquacel extra to each buttock cheek and stop the Xeroform for now and see if that can heal it. We will put on ABDs or thick dressings on both buttocks cheeks may be help with stop the shearing. Also suggested patient lay in bed on his sides and still laying in that chair or lay on the couch. Patient and do not want to change his ways but they just want them to be healed which is I told them almost impossible with him re-shearing every time he lays on his back. Subjective Subjective and are upset because he is not the areas are getting worse with our treatment but he is not offloading at all. Objective Data Objective Data We will change from Xeroform to Aquacel extra to the buttocks area moistened with the foam pads for coverage every day Patient is to talk to his physician about may be some meds for his arthritis that might help with the pain such as meloxicam Vital Signs: Vital Signs Temp Pulse Resp BP 96.9 F L 84 17 140/63 H 05/31/22 09:06 05/31/22 09:06 05/12/22 00:48 05/31/22 09:06 Weight: 236 lb Body Mass Index (BMI) 34.8 Physical Exam Const oriented x3 General Appearance: cooperative Exam Limitations: no limitations HEENT normocephalic Head and Scalp: normal to inspection Face and Sinus: normal facial exam Nose: external nose normal General Ear: hearing grossly impaired External Ear: external ears normal Mouth: oral and palatal mucosa normal Eyes PERRL General Eye: normal appearance of both eyes Neck full ROM General: normal visual inspection Resp normal respiratory effort Effort and Inspection: able to speak in complete sentences Auscultation: clear to auscultation bilaterally Cardio regular rate and regular rhythm Palpation: normal PMI Rate: regular rate Rhythm: regular rhythm GI Auscultation: normoactive bowel sounds Palpation: soft and no hepatosplenomegaly external exam normal Back/Spine Cervical Spine: cervical ROM normal Thoracic Spine / Upper Back: normal to inspection Lumbar Spine / Lower Back: normal to inspection Extremity normal to inspection General Extremity: normal exam except as noted Skin Skin Narrative: Positive open areas shearing on bilateral buttocks cheeks on an erythematous contused buttocks. Mostly superficial but scabbed over Neuro oriented x3 Psych Appearance: grossly normal Speech: normal speech Thought Content: normal thought content Judgement: judgement good Debridement Note Debridement Note Post-Debridement Measurements and Additional Note: Post-Debridement Measurements/Treatment - Nurse 1 - General Ulcer Assessment Start: 05/17/22 08:27 Freq: Status: Active Protocol: JAENT.BEKA Activity Type Activity Date Activity User E-sign Co-sign Detail Recorded Client Recorded Date Recorded By Document 05/17/22 08:27 HONEY [id number] 05/17/22 08:31 KR Document 05/31/22 09:06 HONEY [id number] 05/31/22 09:07 HONEY 05/17/22 05/31/22 08:27 09:06 - Today's Visit Information Type of service Follow-up Visit Follow-up Visit (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 (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 ) ) Arrival Mode Ambulatory Ambulatory, Walker Patient Identification Verified (Name & Yes Yes ) Finger Stick Blood Sugar(mg/dl) (if 143 indicated): Blood Sugar Stated by Patient Height and Weight Body Mass Index (BMI) 34.8 34.8 BMI Classification Obese Obese Vital Signs Temperature (97.8 F-99.1 F) 96.8 F L 96.9 F L Temperature Source Temporal Temporal Pulse Rate (60-100) 70 84 Pulse Location Monitor Monitor Blood Pressure (90/60-120/80) 130/74 H 140/63 H Blood Pressure Mean (mm Hg) 92 88 Source Monitor Monitor Position Sitting Semi-Fowlers Blood Pressure Location Right Arm History Since Last Visit- (Skip if this is Patient's initial visit) Have you changed medications since your No No last visit? Any new allergies or adverse reactions No No Had a fall/change in ADL's that may No No increase risk of falls Signs or symptoms of abuse and/or No No neglect since last visit Have you been in the hospital since your No No last visit? Has dressing in place as prescribed Yes Yes Has compression in place as prescribed N/A N/A Has offloadiing in place as prescribed N/A N/A Experienced any changes in pain level or No No management Left Footwear Regular Shoe Regular Shoe Right Footwear Regular Shoe Regular Shoe Pain Scale: 0-10 Numeric Is Patient Pain Free? Yes Yes WC - Nurse 1 - General Ulcer Measurement Start: 05/17/22 08:27 Freq: Status: Active Protocol: Activity Type Activity Date Activity User E-sign Co-sign Detail Recorded Client Recorded Date Recorded By Document 05/17/22 08:27 KR [id number] 05/17/22 08:31 KR Document 05/31/22 09:06 KR [id number] 05/31/22 09:07 KR 05/17/22 05/31/22 08:27 09:06 Wound Center Nurse 1 #2 R buttock -Current Size (cm) - Length 0.1 8 -Current Size (cm) - Width 0.1 1.2 -Current Size (cm) - Depth 0.1 0.1 -Total Square Cm 0.01 9.6 -Exudate Amt None Present None Present -Wound Margin Distinct, Distinct, Outline Outline Attached Attached -Granulation Amt Medium (34-66%) Large (67-100%) -Granulation Quality [place] -Necrosis Amt None Present (0 %) -Texture (Alysia-wound Skin Appearance) Assessed, Assessed, Scarring Scarring -Moisture (Alysia-wound Skin Appearance) Assessed,Dry/ Assessed, Scaly Maceration -Color (Alysia-wound Skin Appearance) No Abnormality, No Abnormality, Assessed Assessed -Temperature (Alysia-wound Skin No Abnormality No Abnormality Appearance) (Pt Warm) (Pt Warm) -Tenderness on Palpation (Alysia-wound No No Skin Appearance) -Ulcer Cleansing Rinsed/ Rinsed/ Irrigated with Irrigated with Saline Saline -Foul Odor after Cleansing No No -Anesthetic Used 5% Lidocaine 4% Lidocaine Gel Solution,5% Lidocaine Gel #1 L buttock -Current Size (cm) - Length 0.1 -Current Size (cm) - Width 0.1 -Current Size (cm) - Depth 0.1 -Total Square Cm 0.01 -Exudate Amt None Present -Wound Margin Distinct, Outline Attached -Granulation Amt Large (67-100%) -Granulation Quality [place] -Texture (Alysia-wound Skin Appearance) Assessed, Scarring -Moisture (Alysia-wound Skin Appearance) Assessed,Dry/ Scaly -Color (Alysia-wound Skin Appearance) No Abnormality, Assessed -Temperature (Alysia-wound Skin No Abnormality Appearance) (Pt Warm) -Tenderness on Palpation (Alysia-wound No Skin Appearance) -Ulcer Cleansing Rinsed/ Irrigated with Saline -Foul Odor after Cleansing No -Anesthetic Used 5% Lidocaine Gel WC - Nurse 2 - General Ulcer CM Notes Start: 05/17/22 08:27 Freq: Status: Active Protocol: Activity Type Activity Date Activity User E-sign Co-sign Detail Recorded Client Recorded Date Recorded By Document 05/17/22 08:35 MW [id number] 05/17/22 08:43 MW Document 05/31/22 09:12 MW [id number] 05/31/22 09:19 MW 05/17/22 05/31/22 08:35 09:12 Wound Center Nurse 2 #2 R buttock -Time 08:37 09:14 -Correct Patient Yes Yes -Correct Side, Site, Position Yes Yes -Correct Procedure Yes Yes -Procedure Performed Yes No -Type of Procedure Debridement -Clinical Debridement Subcutaneous -Tissue Removed Subcutaneous -Post Debridement (cm) - Length 8.0 10.0 -Post Debridement (cm) - Width 5.5 6.5 -Post Debridement (cm) - Depth 0.1 0.1 -Total Square (Post) (cm) 44.00 65.00 -Area of Debridement (cm) - Length 8.0 -Area of Debridement (cm) - Width 5.5 -Total Square (Area) (cm) 44.00 -Tunneling No No -Undermining/Tunneling No No -Circular Undermining No No -Wound/Ulcer Outcome Not Healed Not Healed -Ulcer Cleansing Rinsed/ Irrigated with Saline -Foul Odor after Cleansing No -Bioengineered Tissue No -Bleeding Controlled with Pressure -Treatment Response Procedure Tolerated Well -Offloading No -Debridement - Subq, 1st 20sq cm Yes -Debridement, SubQ, ea addt'l 20sq cm 2 or part thereof #1 L buttock -Time 08:38 09:16 -Correct Patient Yes Yes -Correct Side, Site, Position Yes Yes -Correct Procedure Yes Yes -Procedure Performed No No -Post Debridement (cm) - Length 0 8.0 -Post Debridement (cm) - Width 0 6.5 -Post Debridement (cm) - Depth 0 0.1 -Total Square (Post) (cm) 0 52.00 -Wound/Ulcer Outcome Healed- Not Healed Epithelialized Pain Scale: 0-10 Numeric Is Patient Pain Free? Yes Yes - Nurse 3 - General Ulcer D/C NN Start: 05/17/22 08:27 Freq: Status: Active Protocol: Activity Type Activity Date Activity User E-sign Co-sign Detail Recorded Client Recorded Date Recorded By Document 05/31/22 09:28 MICHEAL [id number] 05/31/22 09:30 MICHEAL 05/31/22 09:28 Wound Care Nurse 3 #2 R buttock -Ulcer Cleansing Rinsed/ Irrigated with Saline -Foul Odor after Cleansing No -Negative Pressure Wound Therapy N/A -Primary Dressing Applied Aquacel Extra, Mepilex Border -Aquacel Extra 3 -Mepilex Border 2 #1 L buttock -Ulcer Cleansing Rinsed/ Irrigated with Saline -Foul Odor after Cleansing No -Negative Pressure Wound Therapy N/A -Primary Dressing Applied Aquacel Extra, Mepilex Border -Aquacel Extra 0 -Mepilex Border 0 Pain Scale: 0-10 Numeric Is Patient Pain Free? Yes WC - Visit Discharge Discharge Condition Stable Ambulatory Status Ambulatory Transportation Private Auto Medication Reconcilliation completed & Yes provided to patient/care provider Clinical Summary of Care Provided Yes Assessment/Plan Assessment/Plan (1) Peripheral neuropathy: CODE(S): G62.9 - Polyneuropathy, unspecified (2) Type 2 diabetes mellitus without complications: CODE(S): E11.9 - Type 2 diabetes mellitus without complications (3) Stage II pressure ulcer of buttock: CODE(S): L89.302 - Pressure ulcer of unspecified buttock, stage 2 PLAN: Wash bilateral buttocks with antibacterial soap. Pat dry. Apply Aquacel extra to each buttocks cheeks moistened with Confeel dressings over top continue fluconazole antifungal Follow-up in 1weeks
[2022-06-07 08:46] VITALS: BP 150/75; PULSE 81; TEMP 36.1; BMI 34.8
--- NOTE | 2022-06-07 10:36 | PCM.WC.PN ---
History of Present Illness Date of Service: 06/07/22 Chief Complaint: Follow-up on bilateral buttocks wounds from shearing. 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 Keeps developing these shearing on his buttocks cheeks. From sitting in a recliner all day and sleeps in it all night. Patient states had back surgery and it left him with peripheral neuropathy from his knees down. Patient has been using a doughnut to sit on and he does have the crates also to sit on. Patient was seen by his family doctor and referred here. Patient has been using Calmoseptine cream for the open areas that are very superficial. There appears to be some discoloration like he almost gets like little blood blisters down there that flatten out from the shearing. Progress of Wound: Left buttocks is closed soft supple still very dark erythematous skin. The right buttocks still has a couple small open areas and the peeling skin that we will continue using the Aquacel extra on both buttocks cheeks. He seems to respond best to that Subjective Subjective is very pleased she said finally this medicine is working Objective Data Objective Data We will continue the Aquacel extra and hopefully he will be healed in the next week or 2 Vital Signs: Vital Signs Temp Pulse Resp BP 97.0 F L 81 17 150/75 H 06/07/22 08:46 06/07/22 08:46 05/12/22 00:48 06/07/22 08:46 Weight: 236 lb Body Mass Index (BMI) 34.8 Physical Exam Const oriented x3 General Appearance: cooperative Exam Limitations: no limitations HEENT normocephalic Head and Scalp: normal to inspection Face and Sinus: normal facial exam Nose: external nose normal General Ear: hearing grossly impaired External Ear: external ears normal Mouth: oral and palatal mucosa normal Eyes PERRL General Eye: normal appearance of both eyes Neck full ROM General: normal visual inspection Resp normal respiratory effort Effort and Inspection: able to speak in complete sentences Auscultation: clear to auscultation bilaterally Cardio regular rate and regular rhythm Palpation: normal PMI Rate: regular rate Rhythm: regular rhythm GI Auscultation: normoactive bowel sounds Palpation: soft and no hepatosplenomegaly external exam normal Back/Spine Cervical Spine: cervical ROM normal Thoracic Spine / Upper Back: normal to inspection Lumbar Spine / Lower Back: normal to inspection Extremity normal to inspection General Extremity: normal exam except as noted Skin Skin Narrative: Positive open areas shearing on bilateral buttocks cheeks on an erythematous contused buttocks. Mostly superficial but scabbed over Neuro oriented x3 Psych Appearance: grossly normal Speech: normal speech Thought Content: normal thought content Judgement: judgement good Debridement Note Debridement Note Wound debrided: Right buttocks shearing Laterality: Right Wound Grade/Stage: Stage II Type of Debridement: Selective debridement Anesthesia Used: 5% Lidocaine Gel Depth: Down to and including healthy tissue Percentage of wound debrided: 100 Instrument Used: - (Gauze) Tissue Removed: Devitalized tissue Severity: Limited To Skin Breakdown Amount of bleeding with debridement: None Bleeding Controlled with: Pressure Patient tolerated procedure: Patient tolerated procedure well Post-Debridement Measurements and Additional Note: Post-Debridement Measurements/Treatment - Nurse 1 - General Ulcer Assessment Start: 05/17/22 08:27 Freq: Status: Active Protocol: KAMILA Activity Type Activity Date Activity User E-sign Co-sign Detail Recorded Client Recorded Date Recorded By Document 05/17/22 08:27 [id number] 05/17/22 08:31 Document 05/31/22 09:06 [id number] 05/31/22 09:07 Document 06/07/22 08:46 [id number] 06/07/22 08:48 KR 05/17/22 05/31/22 06/07/22 08:27 09:06 08:46 - Today's Visit Information Type of service Follow-up Visit Follow-up Visit Follow-up Visit (Physician/IT SECURITY CONSULTANT (Physician/IT SECURITY CONSULTANT (Physician/IT SECURITY CONSULTANT ) ) ) Arrival Mode Ambulatory Ambulatory, Ambulatory, Walker Walker Patient Identification Verified (Name & Yes Yes Yes ) Finger Stick Blood Sugar(mg/dl) (if 143 indicated): Blood Sugar Stated by Patient Height and Weight Body Mass Index (BMI) 34.8 34.8 34.8 BMI Classification Obese Obese Obese Vital Signs Temperature (97.8 F-99.1 F) 96.8 F L 96.9 F L 97.0 F L Temperature Source Temporal Temporal Temporal Pulse Rate (60-100) 70 84 81 Pulse Location Monitor Monitor Monitor Blood Pressure (90/60-120/80) 130/74 H 140/63 H 150/75 H Blood Pressure Mean (mm Hg) 92 88 100 Source Monitor Monitor Monitor Position Sitting Semi-Fowlers Semi-Fowlers Blood Pressure Location Right Arm Right Arm History Since Last Visit- (Skip if this is Patient's initial visit) Have you changed medications since your No No No last visit? Any new allergies or adverse reactions No No No Had a fall/change in ADL's that may No No No increase risk of falls Signs or symptoms of abuse and/or No No No neglect since last visit Have you been in the hospital since your No No No last visit? Has dressing in place as prescribed Yes Yes Yes Has compression in place as prescribed N/A N/A N/A Has offloadiing in place as prescribed N/A N/A N/A Experienced any changes in pain level or No No No management Left Footwear Regular Shoe Regular Shoe Regular Shoe Right Footwear Regular Shoe Regular Shoe Regular Shoe Pain Scale: 0-10 Numeric Is Patient Pain Free? Yes Yes Yes WC - Nurse 1 - General Ulcer Measurement Start: 05/17/22 08:27 Freq: Status: Active Protocol: Activity Type Activity Date Activity User E-sign Co-sign Detail Recorded Client Recorded Date Recorded By Document 05/17/22 08:27 [id number] 05/17/22 08:31 KR Document 05/31/22 09:06 KR [id number] 05/31/22 09:07 KR Document 06/07/22 08:46 [id number] 06/07/22 08:48 KR 05/17/22 05/31/22 06/07/22 08:27 09:06 08:46 Wound Center Nurse 1 #2 R buttock -Current Size (cm) - Length 0.1 8 7 -Current Size (cm) - Width 0.1 1.2 0.2 -Current Size (cm) - Depth 0.1 0.1 0.1 -Total Square Cm 0.01 9.6 1.4 -Exudate Amt None Present None Present Small -Exudate Type Serosanguineous -Wound Margin Distinct, Distinct, Distinct, Outline Outline Outline Attached Attached Attached -Granulation Amt Medium (34-66%) Large (67-100%) Large (67-100%) -Granulation Quality [place] -Necrosis Amt None Present (0 None Present (0 %) %) -Texture (Alysia-wound Skin Appearance) Assessed, Assessed, Assessed, Scarring Scarring Scarring -Moisture (Alysia-wound Skin Appearance) Assessed,Dry/ Assessed, Assessed,Dry/ Scaly Maceration Scaly -Color (Alysia-wound Skin Appearance) No Abnormality, No Abnormality, No Abnormality, Assessed Assessed Assessed -Temperature (Alysia-wound Skin No Abnormality No Abnormality No Abnormality Appearance) (Pt Warm) (Pt Warm) (Pt Warm) -Tenderness on Palpation (Alysia-wound No No No Skin Appearance) -Ulcer Cleansing Rinsed/ Rinsed/ Rinsed/ Irrigated with Irrigated with Irrigated with Saline Saline Saline -Foul Odor after Cleansing No No No -Anesthetic Used 5% Lidocaine 4% Lidocaine 4% Lidocaine Gel Solution,5% Solution Lidocaine Gel #1 L buttock -Current Size (cm) - Length 0.1 0.1 -Current Size (cm) - Width 0.1 0.1 -Current Size (cm) - Depth 0.1 0.1 -Total Square Cm 0.01 0.01 -Exudate Amt None Present None Present -Wound Margin Distinct, Distinct, Outline Outline Attached Attached -Granulation Amt Large (67-100%) Small (1-33%) -Granulation Quality [place] Red -Necrosis Amt None Present (0 %) -Texture (Alysia-wound Skin Appearance) Assessed, Assessed, Scarring Scarring -Moisture (Alysia-wound Skin Appearance) Assessed,Dry/ No Abnormality, Scaly Assessed -Color (Alysia-wound Skin Appearance) No Abnormality, No Abnormality, Assessed Assessed -Temperature (Alysia-wound Skin No Abnormality No Abnormality Appearance) (Pt Warm) (Pt Warm) -Tenderness on Palpation (Alysia-wound No No Skin Appearance) -Ulcer Cleansing Rinsed/ Rinsed/ Irrigated with Irrigated with Saline Saline -Foul Odor after Cleansing No No -Anesthetic Used 5% Lidocaine 4% Lidocaine Gel Solution WC - Nurse 2 - General Ulcer CM Notes Start: 05/17/22 08:27 Freq: Status: Active Protocol: Activity Type Activity Date Activity User E-sign Co-sign Detail Recorded Client Recorded Date Recorded By Document 05/17/22 08:35 MW [id number] 05/17/22 08:43 MW Document 05/31/22 09:12 MW [id number] 05/31/22 09:19 MW Document 06/07/22 08:53 MW [id number] 06/07/22 08:57 MW 05/17/22 05/31/22 06/07/22 08:35 09:12 08:53 Wound Center Nurse 2 #2 R buttock -Time 08:37 09:14 08:55 -Correct Patient Yes Yes Yes -Correct Side, Site, Position Yes Yes Yes -Correct Procedure Yes Yes Yes -Procedure Performed Yes No Yes -Type of Procedure Debridement Debridement -Clinical Debridement Subcutaneous Epidermis / Dermis -Tissue Removed Subcutaneous Epidermis -Post Debridement (cm) - Length 8.0 10.0 0.1 -Post Debridement (cm) - Width 5.5 6.5 0.1 -Post Debridement (cm) - Depth 0.1 0.1 0.1 -Total Square (Post) (cm) 44.00 65.00 0.01 -Area of Debridement (cm) - Length 8.0 0.1 -Area of Debridement (cm) - Width 5.5 0.1 -Total Square (Area) (cm) 44.00 0.01 -Tunneling No No No -Undermining/Tunneling No No No -Circular Undermining No No No -Wound/Ulcer Outcome Not Healed Not Healed Not Healed -Ulcer Cleansing Rinsed/ Rinsed/ Irrigated with Irrigated with Saline Saline -Foul Odor after Cleansing No No -Bioengineered Tissue No No -Bleeding Controlled with Pressure Pressure -Treatment Response Procedure Procedure Tolerated Well Tolerated Well -Offloading No No -Debridement - Open, 1st 20sq cm Yes -Debridement - Subq, 1st 20sq cm Yes -Debridement, SubQ, ea addt'l 20sq cm 2 or part thereof #1 L buttock -Time 08:38 09:16 08:56 -Correct Patient Yes Yes Yes -Correct Side, Site, Position Yes Yes Yes -Correct Procedure Yes Yes Yes -Procedure Performed No No Yes -Type of Procedure Debridement -Clinical Debridement Epidermis / Dermis -Tissue Removed Epidermis -Post Debridement (cm) - Length 0 8.0 0.1 -Post Debridement (cm) - Width 0 6.5 0.1 -Post Debridement (cm) - Depth 0 0.1 0.1 -Total Square (Post) (cm) 0 52.00 0.01 -Area of Debridement (cm) - Length 0.1 -Area of Debridement (cm) - Width 0.1 -Total Square (Area) (cm) 0.01 -Tunneling No -Undermining/Tunneling No -Circular Undermining No -Wound/Ulcer Outcome Healed- Not Healed Not Healed Epithelialized -Ulcer Cleansing Rinsed/ Irrigated with Saline -Foul Odor after Cleansing No -Bioengineered Tissue No -Bleeding Controlled with Pressure -Treatment Response Procedure Tolerated Well -Offloading No -Debridement - Open, 1st 20sq cm No Pain Scale: 0-10 Numeric Is Patient Pain Free? Yes Yes Yes - Nurse 3 - General Ulcer D/C NN Start: 05/17/22 08:27 Freq: Status: Active Protocol: Activity Type Activity Date Activity User E-sign Co-sign Detail Recorded Client Recorded Date Recorded By Document 05/31/22 09:28 MICHEAL [id number] 05/31/22 09:30 MICHEAL 05/31/22 09:28 Wound Care Nurse 3 #2 R buttock -Ulcer Cleansing Rinsed/ Irrigated with Saline -Foul Odor after Cleansing No -Negative Pressure Wound Therapy N/A -Primary Dressing Applied Aquacel Extra, Mepilex Border -Aquacel Extra 3 -Mepilex Border 2 #1 L buttock -Ulcer Cleansing Rinsed/ Irrigated with Saline -Foul Odor after Cleansing No -Negative Pressure Wound Therapy N/A -Primary Dressing Applied Aquacel Extra, Mepilex Border -Aquacel Extra 0 -Mepilex Border 0 Pain Scale: 0-10 Numeric Is Patient Pain Free? Yes - Visit Discharge Discharge Condition Stable Ambulatory Status Ambulatory Transportation Private Auto Medication Reconcilliation completed & Yes provided to patient/care provider Clinical Summary of Care Provided Yes Additional Wound Wound debrided: Left buttocks shearing Laterality: Left Wound Grade/Stage: Stage II Type of Debridement: Selective debridement Anesthesia Used: 5% Lidocaine Gel Depth: Down to and including healthy tissue Percentage of wound debrided: 100 Instrument Used: - (Because) Tissue Removed: Devitalized tissues Severity: Limited To Skin Breakdown Amount of bleeding with debridement: None Patient tolerated procedure: Patient tolerated procedure well Assessment/Plan Assessment/Plan (1) Peripheral neuropathy: CODE(S): G62.9 - Polyneuropathy, unspecified (2) Type 2 diabetes mellitus without complications: CODE(S): E11.9 - Type 2 diabetes mellitus without complications (3) Stage II pressure ulcer of buttock: CODE(S): L89.302 - Pressure ulcer of unspecified buttock, stage 2 PLAN: Wash bilateral buttocks with antibacterial soap. Pat dry. Apply Aquacel extra to each buttocks cheeks moistened with Confeel dressings over top continue fluconazole antifungal Follow-up in 2weeks
== END 2022-06-11 23:59 | disposition home or self-care (01) ==
LOC: WC 08:45
PROVIDERS: PCP Internal Medicine; Visit Provider Nurse Practitioner
DX: E11.622 Type 2 diabetes mellitus with other skin ulcer (principal); L89.322 Pressure ulcer of left buttock, stage 2; L89.312 Pressure ulcer of right buttock, stage 2; E11.42 Type 2 diabetes mellitus with diabetic polyneuropathy
CPT/HCPCS: 11042; 11045; 97597; 99213; G0463

== ENCOUNTER 2022-06-21 08:36 | Outpatient (RCR) | payer MEDICARE, SELFPAY ==
[2022-05-31 09:48] VITALS: BMI 37.9
[2022-06-12 00:35] VITALS: BP 150/75; PULSE 81; RESP 17; TEMP 36.1; BMI 34.8
[2022-06-21 08:54] VITALS: BP 163/56; PULSE 84; TEMP 36.1; BMI 34.8
--- NOTE | 2022-06-21 09:11 | PN.PCM_ITS ---
History of Present Illness Date of Service: 06/21/22 Chief Complaint: Follow-up on bilateral buttocks wounds from shearing. 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 Keeps developing these shearing on his buttocks cheeks. From sitting in a recliner all day and sleeps in it all night. Patient states had back surgery and it left him with peripheral neuropathy from his knees down. Patient has been using a doughnut to sit on and he does have the crates also to sit on. Patient was seen by his family doctor and referred here. Patient has been using Calmoseptine cream for the open areas that are very superficial. There appears to be some discoloration like he almost gets like little blood blisters down there that flatten out from the shearing. Progress of Wound: Both buttocks cheeks are closed patient is going to be discharged from the wound center Subjective Subjective Patient insists on sleeping in a chair because of his back problems therefore he is shearing and is never can get better try to explain this again to them that it will be forever using Aquacel extra as a wound care product for his buttocks cheeks Objective Data Objective Data No sign of infection still dark erythematous skin but all closed Vital Signs: Vital Signs Temp Pulse Resp BP 97.0 F L 84 17 163/56 H 06/21/22 08:54 06/21/22 08:54 06/12/22 00:35 06/21/22 08:54 Weight: 236 lb Body Mass Index (BMI) 34.8 Physical Exam Const oriented x3 General Appearance: cooperative Exam Limitations: no limitations HEENT normocephalic Head and Scalp: normal to inspection Face and Sinus: normal facial exam Nose: external nose normal General Ear: hearing grossly impaired External Ear: external ears normal Mouth: oral and palatal mucosa normal Eyes PERRL General Eye: normal appearance of both eyes Neck full ROM General: normal visual inspection Resp normal respiratory effort Effort and Inspection: able to speak in complete sentences Auscultation: clear to auscultation bilaterally Cardio regular rate and regular rhythm Palpation: normal PMI Rate: regular rate Rhythm: regular rhythm GI Auscultation: normoactive bowel sounds Palpation: soft and no hepatosplenomegaly external exam normal Back/Spine Cervical Spine: cervical ROM normal Thoracic Spine / Upper Back: normal to inspection Lumbar Spine / Lower Back: normal to inspection Extremity normal to inspection General Extremity: normal exam except as noted Skin Skin Narrative: Positive open areas shearing on bilateral buttocks cheeks on an erythematous contused buttocks. Mostly superficial but scabbed over Neuro oriented x3 Psych Appearance: grossly normal Speech: normal speech Thought Content: normal thought content Judgement: judgement good Debridement Note Debridement Note Post-Debridement Measurements and Additional Note: Post-Debridement Measurements/Treatment JANET - Nurse 1 - General Ulcer Assessment Start: 06/21/22 08:54 Freq: Status: Active Protocol: KAMILA Activity Type Activity Date Activity User E-sign Co-sign Detail Recorded Client Recorded Date Recorded By Document 06/21/22 08:54 HONEY [id number] 06/21/22 08:55 HONEY 06/21/22 08:54 JANET - Today's Visit Information Type of service Follow-up Visit (Physician/SPECIAL POLICE ) Arrival Mode Ambulatory Patient Identification Verified (Name & Yes ) Height and Weight Body Mass Index (BMI) 34.8 BMI Classification Obese Vital Signs Temperature (97.8 F-99.1 F) 97.0 F L Temperature Source Temporal Pulse Rate (60-100) 84 Pulse Location Monitor Blood Pressure (90/60-120/80) 163/56 H Blood Pressure Mean (mm Hg) 91 Source Monitor Position Semi-Fowlers Blood Pressure Location Right Arm History Since Last Visit- (Skip if this is Patient's initial visit) Have you changed medications since your No last visit? Any new allergies or adverse reactions No Had a fall/change in ADL's that may No increase risk of falls Signs or symptoms of abuse and/or No neglect since last visit Have you been in the hospital since your No last visit? Has dressing in place as prescribed Yes Has compression in place as prescribed N/A Has offloadiing in place as prescribed N/A Experienced any changes in pain level or No management Left Footwear Regular Shoe Right Footwear Regular Shoe Pain Scale: 0-10 Numeric Is Patient Pain Free? Yes JANET Lockwood Nurse 1 - General Ulcer Measurement Start: 06/21/22 08:54 Freq: Status: Active Protocol: Activity Type Activity Date Activity User E-sign Co-sign Detail Recorded Client Recorded Date Recorded By Document 06/21/22 08:54 HONEY [id number] 06/21/22 08:55 KR 06/21/22 08:54 Wound Center Nurse 1 #2 R buttock -Current Size (cm) - Length 0.1 -Current Size (cm) - Width 0.1 -Current Size (cm) - Depth 0.1 -Total Square Cm 0.01 -Exudate Amt Small -Exudate Type Serosanguineous -Wound Margin Distinct, Outline Attached -Granulation Amt Medium (34-66%) -Granulation Quality [employer] -Necrosis Amt None Present (0 %) -Texture (Alysia-wound Skin Appearance) Assessed, Scarring -Moisture (Alysia-wound Skin Appearance) No Abnormality, Assessed -Color (Alysia-wound Skin Appearance) No Abnormality, Assessed -Temperature (Alysia-wound Skin No Abnormality Appearance) (Pt Warm) -Tenderness on Palpation (Alysia-wound No Skin Appearance) -Ulcer Cleansing Rinsed/ Irrigated with Saline -Foul Odor after Cleansing No -Anesthetic Used 4% Lidocaine Solution #1 L buttock -Current Size (cm) - Length 0.1 -Current Size (cm) - Width 0.1 -Current Size (cm) - Depth 0.1 -Total Square Cm 0.01 -Exudate Amt Small -Exudate Type Serosanguineous -Wound Margin Distinct, Outline Attached -Granulation Amt Large (67-100%) -Granulation Quality Red -Necrosis Amt None Present (0 %) -Texture (Alysia-wound Skin Appearance) Assessed, Scarring -Moisture (Alysia-wound Skin Appearance) No Abnormality, Assessed -Color (Alysia-wound Skin Appearance) No Abnormality, Assessed -Temperature (Alysia-wound Skin No Abnormality Appearance) (Pt Warm) -Tenderness on Palpation (Alysia-wound No Skin Appearance) -Ulcer Cleansing Rinsed/ Irrigated with Saline -Foul Odor after Cleansing No -Anesthetic Used 4% Lidocaine Solution WC - Nurse 2 - General Ulcer CM Notes Start: 06/21/22 08:54 Freq: Status: Active Protocol: Activity Type Activity Date Activity User E-sign Co-sign Detail Recorded Client Recorded Date Recorded By Document 06/21/22 09:02 MW [id number] 06/21/22 09:07 MW 06/21/22 09:02 Wound Center Nurse 2 #2 R buttock -Time 09:03 -Correct Patient Yes -Correct Side, Site, Position Yes -Correct Procedure Yes -Procedure Performed No -Post Debridement (cm) - Length 0 -Post Debridement (cm) - Width 0 -Post Debridement (cm) - Depth 0 -Total Square (Post) (cm) 0 -Wound/Ulcer Outcome Healed- Epithelialized #1 L buttock -Time 09:05 -Correct Patient Yes -Correct Side, Site, Position Yes -Correct Procedure Yes -Procedure Performed No -Tunneling No -Undermining/Tunneling No -Circular Undermining No -Wound/Ulcer Outcome Healed- Epithelialized Pain Scale: 0-10 Numeric Is Patient Pain Free? Yes Assessment/Plan Assessment/Plan (1) Peripheral neuropathy: CODE(S): G62.9 - Polyneuropathy, unspecified (2) Type 2 diabetes mellitus without complications: CODE(S): E11.9 - Type 2 diabetes mellitus without complications (3) Stage II pressure ulcer of buttock: CODE(S): L89.302 - Pressure ulcer of unspecified buttock, stage 2 PLAN: Wash bilateral buttocks with antibacterial soap. Pat dry. Apply Aquacel extra to each buttocks cheeks moistened with Confeel dressing Follow-up as needed discharge from the wound center
== END 2022-06-21 16:10 | disposition home or self-care (01) ==
LOC: WC 08:36
PROVIDERS: PCP Internal Medicine; Visit Provider Nurse Practitioner
DX: Z09 Encounter for follow-up examination after completed treatment for conditions other than malignant neoplasm (principal); E11.42 Type 2 diabetes mellitus with diabetic polyneuropathy
CPT/HCPCS: 99213; G0463

== ENCOUNTER → 2022-06-21 | Outpatient (CLI) | payer MEDICARE, SELFPAY ==
[2022-05-31 09:48] VITALS: BMI 37.9
[2022-06-21 12:32] LABS: Absolute Lymphocyte Count 2.02 X10^3/uL (0.83-4.51); Absolute Neutrophil Count 5.2 X10^3/uL (2.0-7.7); Basophil# 0.04 X10^3/uL; Basophil% 0.5 % (0-1); Eosinophils% 2.4 % (0-5); Hematocrit 41.8 % (40-54); Lymphocyte # 2.02 X10^3/ul (0.83-4.51); Mean Corp Hgb Conc 33.5 g/dL (32-36); Mean Corpuscular Volume 86.7 fL (80-94); Mean Platelet Vol. 9.9 fl (6.2-12.0); Monocyte# 0.87 X10^3/uL; Monocyte% 10.4 % (0-10); NRBC Flagged by Analyzer 0 % (0-5); Neutrophil # 5.24 X10^3/uL (2.7-7.7); Neutrophil % 62.3 % (47-70); Platelet Count 192 K/mm3 (150-450); RBC Distribution Width CV 13.9 % (11.6-14.6); RBC Distribution Width SD 43.9 fl (35.1-43.9); Red Blood Count 4.82 M/mm3 (4.6-6.2); White Blood Count 8.4 K/mm3 (4.4-11.0)
[2022-06-21 12:59] LABS: Vitamin D,25 Hydroxy 50.8 ng/mL
[2022-06-21 13:09] LABS: ALB/GLOB Ratio 0.9 RATIO (0.9-2.4); AST(SGOT) 57 U/L (15-37); Alanine Aminotransfer ALT/SGPT 62 U/L (16-61); Albumin, Serum 3.6 g/dL (3.2-5.0); Alkaline Phosphatase 112 U/L (45-117); Anion Gap 6 (5-15); BUN 16 mg/dL (7-18); BUN/Creat Ratio 17.5 RATIO (10-20); Calcium,Total 9.4 mg/dL (8.5-10.1); Chloride 102 mmol/L (98-107); Cholesterol 129 mg/dL (200); Creatinine, Serum 0.91 mg/dL (0.70-1.30); EST Glomerular Filtration Rate 85 mL/min (>60); Est Glom Filt Rate - Afr Amer 102 mL/min (>60); Free T3 2.7 pg/mL (2.18-3.98); Glucose 142 mg/dL (74-106); High Density Lipoprotein 51 mg/dL; Potassium 4.5 mmol/L (3.5-5.1); Protein, Total 7.6 g/dL (6.4-8.2); Sodium Level 138 mmol/L (136-145); T4 Free Direct 0.92 ng/dL (0.76-1.46); Thyroid Stim Hormone (TSH) 2.84 uIU/mL (0.358-3.74); Triglycerides 138 mg/dL; Very Low Density Lipoprotein 28 mg/dL (5-40)
[2022-06-21 13:36] LABS: Hemoglobin A1c 6.9 % (3.8-5.6)
== END | disposition home or self-care (01) ==
LOC: LAB 11:13
PROVIDERS: PCP Internal Medicine; Visit Provider Internal Medicine
DX: I25.10 Atherosclerotic heart disease of native coronary artery without angina pectoris (principal); E11.43 Type 2 diabetes mellitus with diabetic autonomic (poly)neuropathy; G47.00 Insomnia, unspecified; I10 Essential (primary) hypertension; E55.9 Vitamin D deficiency, unspecified; Z12.5 Encounter for screening for malignant neoplasm of prostate; Z09 Encounter for follow-up examination after completed treatment for conditions other than malignant neoplasm
CPT/HCPCS: 36415; 80053; 80061; 82306; 83036; 84153; 84439; 84443; 84481; 85025; 99213; G0103; G0463

== ENCOUNTER 2022-08-03 09:30 | Outpatient (RCR) | payer MEDICARE, SELFPAY ==
[2022-05-31 09:48] VITALS: BMI 37.9
[2022-07-20 09:12] VITALS: BP 129/64; PULSE 97; RESP 18; TEMP 36.1
--- NOTE | 2022-07-20 12:21 | HP.PCM_ITS ---
History of Present Illness Date of Service: 07/20/22 Chief Complaint: Bilateral buttock ulcerations/erythema History of Wound: 81-year-old white male who is a transfer of care to [place]. Was discharged from the wound center less than a month ago however on request of his primary care physician, he has returned. He was managed for bilateral buttock erythema/ulceration which were described as superficial. He states that over the last couple of days, there has been increased pain and irritation. Due to other chronic morbidities, he states and sleeps in a chair. He states that he tries to keep the area clean as best as he can. No chills or recorded fever. Denies nausea or vomiting. Of note, also has a history of IBS with frequent months. [facility] Medical History (Updated 07/20/22 @ 12:[address] 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) Osteoarthritis Peripheral neuropathy Physical debility Rheumatoid synovitis Transient speech disturbance Type 2 diabetes mellitus without complications Home Medications aspirin 81 mg chewable tablet 81 mg PO DAILY heart 01/09/17 [History Last Taken 03/28/22] coenzyme Q10 200 mg capsule 200 mg PO QODAY heart 01/09/17 [History Last Taken 1 Day Ago ~02/15/19] lutein 20 mg tablet 20 mg PO QODAY eye 01/09/17 [History Last Taken 1 Day Ago ~02/15/19] multivitamin with folic acid 400 mcg tablet 1 tab PO DAILY supplemental 01/09/17 [History Last Taken 02/16/19] ascorbate calcium (vitamin C) 500 mg tablet 500 mg PO DAILY 01/05/21 [History Last Taken Unknown] cholecalciferol (vitamin D3) 50 mcg (2,000 unit) capsule 50 mcg PO DAILY 01/05/21 [History Last Taken Unknown] sumatriptan succinate 50 mg tablet See Rx Instructions PO .COMPLEX #30 tabs 08/24/21 [Rx Last Taken Unknown] alcohol swabs 1 pad topical .3 times daily #100 ea 09/21/21 [Rx Last Taken Unknown] blood sugar diagnostic (Accu-Chek Delmi Plus test strips) #100 ea 09/21/21 [Rx Last Taken Unknown] lancets (Accu-Chek Softclix Lancets) #100 ea 09/21/21 [Rx Last Taken Unknown] omeprazole 40 mg capsule,delayed release 40 mg PO DAILY #90 caps 09/21/21 [Rx Last Taken Unknown] diclofenac sodium 1 % topical gel (Arthritis Pain (diclofenac)) 2 g topical ONCE 09/23/21 [History Last Taken Unknown] finasteride 5 mg tablet 5 mg PO DAILY 09/23/21 [History Last Taken Unknown] diphenhydramine HCl 25 mg capsule 25 mg PO QHS PRN Sleep 03/23/22 [History Last Taken Unknown] magnesium oxide 400 mg (241.3 mg magnesium) tablet 400 mg PO Q OTHER DAY 03/23/22 [History Last Taken Unknown] metformin 500 mg tablet 500 mg PO .COMPLEX diabetes 03/23/22 [History Last Taken 03/27/22] potassium gluconate 595 mg (99 mg) tablet 595 mg PO Q OTHER DAY 03/23/22 [History Last Taken Unknown] simvastatin 20 mg tablet 20 mg PO QHS cholesterol #90 tabs 04/03/22 [Rx Last Taken Unknown] tamsulosin 0.4 mg capsule 0.4 mg PO BID prostate #180 caps 04/03/22 [Rx Last Taken Unknown] metoprolol succinate 50 mg tablet,extended release 24 hr 50 mg PO DAILY This is a dose increase #90 tabs 04/12/22 [Rx Last Taken Unknown] menthol 0.44 %-zinc oxide 20.6 % topical ointment (Calmoseptine) 1 applic topical 4-6XD PRN skin irritation #113 grams 04/13/22 [Rx Last Taken Unknown] ascorbic acid (vitamin C) 25 mg tablet mg PO 04/26/22 [History Last Taken Unknown] calcium phosphate,dibasic 77 mg-vitamin D3 400 unit tablet tab PO 04/26/22 [History Last Taken Unknown] calcium phosphate,dibasic 77 mg-vitamin D3 400 unit tablet tab PO 04/26/22 [History Last Taken Unknown] trazodone 50 mg tablet 50 mg PO QHS PRN sleep #30 tabs 05/31/22 [Rx Last Taken Unknown] Handicap Placard #1 ea 06/21/22 [Rx Last Taken Unknown] Lift Chair #1 ea 06/21/22 [Rx Last Taken Unknown] semaglutide 3 mg tablet (Rybelsus) 3 mg PO DAILY #90 tabs 06/30/22 [Rx Last Taken Unknown] celecoxib 100 mg capsule 100 mg PO BID #90 caps 07/03/22 [Rx Last Taken Unknown] cephalexin 500 mg capsule 500 mg PO TID #21 caps 07/20/22 [Rx Last Taken Unknown] doxycycline monohydrate 100 mg tablet 100 mg PO BID #14 tabs 07/20/22 [Rx Last Taken Unknown] Allergy/AdvReac Type Severity Reaction Status Date / Time dulaglutide [From Trulicity] Allergy Severe nausea, Verified 07/13/22 11:25 vomiting, dry heaves acetaminophen [From Percocet] Allergy Unknown Verified 07/13/22 11:25 hydrocodone [From Vicodin] Allergy Unknown Verified 07/13/22 11:25 lactase [From Dairy Aid] Allergy Unknown Verified 07/13/22 11:25 mold Allergy Unknown Verified 07/13/22 11:25 oxycodone [From Percocet] Allergy Unknown Verified 07/13/22 11:25 Penicillins Allergy Unknown Verified 07/13/22 11:25 pollen extracts Allergy Unknown Verified 07/13/22 11:25 rofecoxib [From Vioxx] Allergy Unknown Verified 07/13/22 11:25 Sulfa (Sulfonamide Allergy Unknown Verified 07/13/22 11:25 Antibiotics) Family History Father CAD (coronary artery disease) Other Arthritis Asthma Bowel disease Cancer Diabetes Skin cancer Surgical History H/O arthroscopy of left knee History of back surgery History of basal cell carcinoma excision History of biopsy of temporal artery (01/2021) History of cataract surgery History of coronary artery stent placement (01/14/17) History of eye surgery History of left heart catheterization (03/28/22) History of prostate surgery History of right shoulder replacement History of tonsillectomy Hx of cholecystectomy Social History Smoking Status: Unknown if ever smoked how long ago did patient quit smokin alcohol intake: never substance use type: does not use caffeine: No what type of physical activity do you participate in: bicycling frequency: 3-4 times per week ROS Constitutional Constitutional: Denies fatigue, fever(s), frequent falls, headache(s), increased appetite or weight loss Eyes Eyes: Denies change in eye color, change in vision, decreased night vision, erythema or puffy eyes ENT HEENT: Denies dysphagia, ear discharge, ear pain, epistaxis, foreign body in nose or nasal discharge Cardiovascular Cardiovascular: Denies chest pain, chest pain with activity, fatigue, leg edema, leg ulcers, nausea or orthopnea Respiratory/Chest Respiratory/Chest: Denies hemoptysis, hoarseness, nail bed cyanosis, pain on inspiration, pain with cough, pale skin, alysia-oral cyanosis or portable oxygen @ home Gastrointestinal Gastrointestinal: Denies chewing difficulty, coffee ground emesis, constipation, cramping, diarrhea, dry heaves or dyspepsia Genitourinary Genitourinary: Reports genital bruising and low back pain; Denies hematuria, penile discharge, penile swelling, urinary hesitancy or urinary incontinence Musculoskeletal Musculoskeletal: Reports joint stiffness; Denies joint swelling, loss of height, muscle cramps, muscle spasms, muscle weakness or myalgias Integumentary Integumentary: Reports erythema; Denies hirsutism, jaundice, lesions, nail changes, new lesions, non-healing lesions or photosensitivity Neurologic Neurologic: Denies confusion, convulsions, disequilibrium, dizziness, focal weakness, frequent falls, headache(s) or lack of coordination Psychiatric Psychiatric: Denies confusion, depression, difficulty concentrating, hallucinations, homicidal ideation, hopelessness, irritability, memory loss or panic attacks Endocrine Endocrinology: Denies cold intolerance, deepening of the voice, fatigue, flushing, heat intolerance, increase in ring/shoe/hat size or palpitations Allergic/Immunologic Allergic/Immunologic: Denies tongue swelling, hives, urticaria, eczemia, wheezing or asthma Vital Signs Vital Signs Vital Signs: 07/20/22 09:12 Temperature 97.0 F L Temperature Source Temporal Pulse Rate 97 Respiratory Rate 18 Blood Pressure 129/64 H Blood Pressure Mean 85 Blood Pressure Source Monitor Blood Pressure Position Sitting Blood Pressure Location Left Arm Oxygen Delivery Method Room Air Physical Exam Const alert, oriented x3 and no apparent distress General Appearance: cooperative, comfortable and well kempt Orientation / Consciousness: awake Exam Limitations: no limitations HEENT normocephalic and hearing grossly normal bilaterally Head and Scalp: normal to inspection Eyes EOMs intact bilaterally General Eye: normal appearance of both eyes Neck full ROM and supple General: normal visual inspection Resp normal respiratory effort Effort and Inspection: able to speak in complete sentences Neuro oriented x3, CN's II-XII intact bilaterally, moves all extremities and no focal motor deficits Psych mental status grossly normal and thought process normal Appearance: grossly normal Attitude: calm Debridement Note Debridement Note Post-Debridement Measurements and Additional Note: Post-Debridement Measurements/Treatment - Nurse 1 - General Ulcer Assessment Start: 07/20/22 08:55 Freq: Status: Active Protocol: KAMILA Activity Type Activity Date Activity User E-sign Co-sign Detail Recorded Client Recorded Date Recorded By Document 07/20/22 09:12 MS True Styleop 07/20/22 09:22 MS 07/20/22 09:12 [facility] Today's Visit Information Type of service 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-up Visit (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 ) Arrival Mode Ambulatory, Walker Patient Identification Verified (Name & Yes ) Safety Precautions Fall Prevention Vital Signs Temperature (97.8 F-99.1 F) 97.0 F L Temperature Source Temporal Pulse Rate (60-100) 97 Pulse Location Monitor Respiratory Rate (12-18) 18 Respiratory rate source Observation Oxygen Delivery Method Room Air Blood Pressure (90/60-120/80) 129/64 H Blood Pressure Mean 85 Source Monitor Position Sitting Blood Pressure Location Left Arm History Since Last Visit- (Skip if this is Patient's initial visit) Has dressing in place as prescribed Yes Has compression in place as prescribed Yes Has offloadiing in place as prescribed Yes Experienced any changes in pain level or Yes management Left Footwear Regular Shoe Right Footwear Regular Shoe Pain Scale: 0-10 Numeric Is Patient Pain Free? Yes [facility] Nurse 1 - General Ulcer Measurement Start: 07/20/22 08:55 Freq: Status: Active Protocol: Activity Type Activity Date Activity User E-sign Co-sign Detail Recorded Client Recorded Date Recorded By Document 07/20/22 09:12 MS True Styleop 07/20/22 09:22 MS 07/20/22 09:12 Wound Center Nurse 1 #1 L buttock -Combined with other wound No -Current Size (cm) - Length 0.1 -Current Size (cm) - Width 0.1 -Current Size (cm) - Depth 0.1 -Total Square Cm 0.01 -Epithelialization None Present -Tunneling No -Undermining/Tunneling No -Circular Undermining No -Exudate Amt Small -Exudate Type Sanguineous -Wound Margin Flat & Intact -Granulation Amt Large (67-100%) -Granulation Quality Red -Slough/Fibrin No -Necrosis Amt None Present (0 %) -Texture (Alysia-wound Skin Appearance) Assessed, Scarring -Moisture (Alysia-wound Skin Appearance) Assessed,Dry/ Scaly -Color (Alysia-wound Skin Appearance) Assessed, Erythema -Temperature (Alysia-wound Skin No Abnormality Appearance) (Pt Warm) -Tenderness on Palpation (Alysia-wound Yes Skin Appearance) -Ulcer Cleansing Soap and Water -Foul Odor after Cleansing No -Anesthetic Used 4% Lidocaine Solution Lower Limb Edema Present NA WC - Nurse 2 - General Ulcer CM Notes Start: 07/20/22 08:55 Freq: Status: Active Protocol: Activity Type Activity Date Activity User E-sign Co-sign Detail Recorded Client Recorded Date Recorded By Document 07/20/22 09:47 MW [id number] 07/20/22 09:50 MW 07/20/22 09:47 Wound Center Nurse 2 #1 L buttock -Time 09:48 -Correct Patient Yes -Correct Side, Site, Position Yes -Correct Procedure Yes -Procedure Performed No -Tunneling No -Undermining/Tunneling No -Circular Undermining No -Wound/Ulcer Outcome Not Healed Pain Scale: 0-10 Numeric Is Patient Pain Free? No WC - Nurse 3 - General Ulcer D/C NN Start: 07/20/22 08:55 Freq: Status: Active Protocol: Activity Type Activity Date Activity User E-sign Co-sign Detail Recorded Client Recorded Date Recorded By Document 07/20/22 10:09 DL [id number] 07/20/22 10:24 DL 07/20/22 10:09 Wound Care Nurse 3 #1 L buttock -Ulcer Cleansing Rinsed/ Irrigated with Saline -Foul Odor after Cleansing No -Primary Dressing Applied Aquacel Extra -Other Dressing ABD -Primary Dressing Covered/Secured with Dry Gauze, Secured with Tape -Other Covering triamcinalone to rash -Aquacel Extra 1 Treatment Response Procedure Tolerated Well Pain Scale: 0-10 Numeric Is Patient Pain Free? Yes WC - Visit Discharge Discharge Condition Stable Ambulatory Status Ambulatory Transportation Private Auto Charges/Coding Visit Charges Office Visits / Consults: [id number] OV L4 Est Assessment/Plan Assessment/Plan (1) Stage I pressure ulcer of buttock: CODE(S): L89.301 - Pressure ulcer of unspecified buttock, stage 1 (2) Stage II pressure ulcer of buttock: CODE(S): L89.302 - Pressure ulcer of unspecified buttock, stage 2 (3) Dermatitis: CODE(S): L30.9 - Dermatitis, unspecified (4) Physical debility: CODE(S): R53.81 - Other malaise (5) Peripheral neuropathy: CODE(S): G62.9 - Polyneuropathy, unspecified PLAN: Plan No debridement completed today, superficial ulcerations. Mostly stage I with some areas of stage II ulceration. Compared to his last visit, there has been worsening and extension. . Patient also reports a lot of pain and burning in his buttock and groin area. Uncomfortable to sit. Concerned about not just pressure ulcer but dermatitis and ongoing cellulitis as well. Lengthy discussion had with patient and his , he does a lot of sitting and sleeps in a chair as well. This will definitely impede healing and cause worsening. Due to his chronic shoulder and knee pain, he states that he is unable to lie in the bed. Hospital bed discussed, they are open to this, prescription sent. Apply triamcinolone twice daily for 5 days in a week. Do not apply to open ulcerations. Apply copious amount of Aquaphor to areas of erythema and Aquacel extra to open areas. Change twice daily or more depending on drainage. Patient and his voiced understanding. Keflex and Doxycycline prescribed for Cellulitis. Continue optimal diabetes control and increase protein intake f ollow-up in 1 week or sooner if needed. The questions were answered and they were advised to call with any further questions or concerns.
[2022-07-27 09:27] VITALS: BP 145/68; PULSE 87; RESP 16; TEMP 35.4
--- NOTE | 2022-07-27 12:41 | PN.PCM_ITS ---
History of Present Illness Date of Service: 07/27/22 Chief Complaint: Bilateral buttock ulcerations/erythema History of Wound: 81-year-old white male who is a transfer of care to [place]. Was discharged from the wound center less than a month ago however on request of his primary care physician, he has returned. He was managed for bilateral buttock erythema/ulceration which were described as superficial. He states that over the last couple of days, there has been increased pain and irritation. Due to other chronic morbidities, he states and sleeps in a chair. He states that he tries to keep the area clean as best as he can. No chills or recorded fever. Denies nausea or vomiting. Of note, also has a history of IBS with frequent months. Progress of Wound: Significant improvement in 1 week. Patient reports less burning and irritation. Has been applying copious amount of Aquaphor and triamcinolone. Denies any concerns at this time. Objective Data Objective Data Vital Signs: Vital Signs Temp Pulse Resp BP O2 Del Method 95.7 F L 87 16 145/68 H Room Air 07/27/22 09:27 07/27/22 09:27 07/27/22 09:27 07/27/22 09:27 07/27/22 09:27 Oxygen Delivery Method Room Air Charges/Coding Visit Charges Office Visits / Consults: [id number] OV L3 Est Physical Exam Const alert, oriented x3 and no apparent distress General Appearance: cooperative, comfortable and well kempt Orientation / Consciousness: awake Exam Limitations: no limitations HEENT normocephalic and hearing grossly normal bilaterally Head and Scalp: normal to inspection Eyes EOMs intact bilaterally General Eye: normal appearance of both eyes Neck full ROM and supple General: normal visual inspection Resp normal respiratory effort Effort and Inspection: able to speak in complete sentences Neuro oriented x3, CN's II-XII intact bilaterally, moves all extremities and no focal motor deficits Psych mental status grossly normal and thought process normal Appearance: grossly normal Attitude: calm Debridement Note Debridement Note Post-Debridement Measurements and Additional Note: Post-Debridement Measurements/Treatment JANET - Nurse 1 - General Ulcer Assessment Start: 07/20/22 08:55 Freq: Status: Active Protocol: KAMILA Activity Type Activity Date Activity User E-sign Co-sign Detail Recorded Client Recorded Date Recorded By Document 07/20/22 09:12 MT Desktop 07/20/22 09:22 MI Document 07/27/22 09:27 [facility] [id number] 07/27/22 09:32 [facility] 07/20/22 07/27/22 09:12 09:27 - Today's Visit Information Type of service Follow-up Visit 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-up Visit (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 (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 ) ) Arrival Mode Ambulatory, Ambulatory, Walker Walker Transfer Assistance None Patient Identification Verified (Name & Yes Yes ) Patient Requires Transmission-Based No Precautions Safety Precautions Fall Prevention Vital Signs Temperature (97.8 F-99.1 F) 97.0 F L 95.7 F L Temperature Source Temporal Temporal Pulse Rate (60-100) 97 87 Pulse Location Monitor Monitor Respiratory Rate (12-18) 18 16 Respiratory rate source Observation Observation Oxygen Delivery Method Room Air Room Air Blood Pressure (90/60-120/80) 129/64 H 145/68 H Blood Pressure Mean (mm Hg) 85 93 Source Monitor Monitor Position Sitting Sitting Blood Pressure Location Left Arm Left Arm History Since Last Visit- (Skip if this is Patient's initial visit) Have you changed medications since your No last visit? Any new allergies or adverse reactions No Had a fall/change in ADL's that may No increase risk of falls Signs or symptoms of abuse and/or No neglect since last visit Have you been in the hospital since your No last visit? Has dressing in place as prescribed Yes Yes Has compression in place as prescribed Yes N/A Has offloadiing in place as prescribed Yes N/A Experienced any changes in pain level or Yes No management Left Footwear Regular Shoe Regular Shoe Right Footwear Regular Shoe Regular Shoe Pain Scale: 0-10 Numeric Is Patient Pain Free? Yes Yes - Nurse 1 - General Ulcer Measurement Start: 07/20/22 08:55 Freq: Status: Active Protocol: Activity Type Activity Date Activity User E-sign Co-sign Detail Recorded Client Recorded Date Recorded By Document 07/20/22 09:12 MI Desktop 07/20/22 09:22 MI Document 07/27/22 09:27 [facility] [id number] 07/27/22 09:32 [facility] 07/20/22 07/27/22 09:12 09:27 Wound Center Nurse 1 #1 L buttock -Combined with other wound No No -Current Size (cm) - Length 0.1 0.1 -Current Size (cm) - Width 0.1 0.1 -Current Size (cm) - Depth 0.1 0.1 -Total Square Cm 0.01 0.01 -Epithelialization None Present Large 67-100% -Tunneling No No -Undermining/Tunneling No No -Circular Undermining No No -Exudate Amt Small None Present -Exudate Type Sanguineous -Wound Margin Flat & Intact Distinct, Outline Attached -Granulation Amt Large (67-100%) Small (1-33%) -Granulation Quality Red Red -Slough/Fibrin No Yes -Necrosis Amt None Present (0 Medium (34-66%) %) -Necrotic Tissue Type Adherent Slough -Texture (Alysia-wound Skin Appearance) Assessed, Assessed, Scarring Scarring,Rash -Moisture (Alysia-wound Skin Appearance) Assessed,Dry/ Assessed,Dry/ Scaly Scaly -Color (Alysia-wound Skin Appearance) Assessed, Assessed, Erythema Erythema -Temperature (Alysia-wound Skin No Abnormality No Abnormality Appearance) (Pt Warm) (Pt Warm) -Tenderness on Palpation (Alysia-wound Yes No Skin Appearance) -Ulcer Cleansing Soap and Water Rinsed/ Irrigated with Saline -Foul Odor after Cleansing No No -Anesthetic Used 4% Lidocaine 5% Lidocaine Solution Gel Lower Limb Edema Present NA WC - Nurse 2 - General Ulcer CM Notes Start: 07/20/22 08:55 Freq: Status: Active Protocol: Activity Type Activity Date Activity User E-sign Co-sign Detail Recorded Client Recorded Date Recorded By Document 07/20/22 09:47 MW [id number] 07/20/22 09:50 MW Document 07/27/22 09:57 MW [id number] 07/27/22 10:02 MW 07/20/22 07/27/22 09:47 09:57 Wound Center Nurse 2 #1 L buttock -Time 09:48 09:58 -Correct Patient Yes Yes -Correct Side, Site, Position Yes Yes -Correct Procedure Yes Yes -Procedure Performed No No -Post Debridement (cm) - Length 0 -Post Debridement (cm) - Width 0 -Post Debridement (cm) - Depth 0 -Total Square (Post) (cm) 0 -Tunneling No -Undermining/Tunneling No -Circular Undermining No -Wound/Ulcer Outcome Not Healed Healed- Epithelialized Pain Scale: 0-10 Numeric Is Patient Pain Free? No Yes - Nurse 3 - General Ulcer D/C NN Start: 07/20/22 08:55 Freq: Status: Active Protocol: Activity Type Activity Date Activity User E-sign Co-sign Detail Recorded Client Recorded Date Recorded By Document 07/20/22 10:09 DL [id number] 07/20/22 10:24 DL Document 07/27/22 10:11 [facility] [id number] 07/27/22 10:12 [facility] 07/20/22 07/27/22 10:09 10:11 Wound Care Nurse 3 #1 L buttock -Ulcer Cleansing Rinsed/ Irrigated with Saline -Foul Odor after Cleansing No -Primary Dressing Applied Aquacel Extra -Other Dressing ABD -Primary Dressing Covered/Secured with Dry Gauze, Secured with Tape -Other Covering triamcinalone to rash -Aquacel Extra 1 Treatment Response Procedure Tolerated Well Pain Scale: 0-10 Numeric Is Patient Pain Free? Yes Yes - Visit Discharge Discharge Condition Stable Stable Ambulatory Status Ambulatory Ambulatory Transportation Private Auto Private Auto Accompanied by Notes: dry gauze today in clinic Assessment/Plan Assessment/Plan (1) Stage I pressure ulcer of buttock: CODE(S): L89.301 - Pressure ulcer of unspecified buttock, stage 1 (2) Stage II pressure ulcer of buttock: CODE(S): L89.302 - Pressure ulcer of unspecified buttock, stage 2 (3) Dermatitis: CODE(S): L30.9 - Dermatitis, unspecified (4) Physical debility: CODE(S): R53.81 - Other malaise (5) Peripheral neuropathy: CODE(S): G62.9 - Polyneuropathy, unspecified PLAN: Plan Significant improvement in 1 week. Patient states that this is the best he has felt in 4 to 5 months. Erythema and irritation much improved compared to his last visit. As above, he has been applying copious amount of Aquaphor to the buttock area, has also been applying triamcinolone as discussed. Aquacel has been a bit of a challenge but at this time, it does not appear that he needs it. Stage II ulcerations much improved. Continue copious amount of Aquaphor and triamcinolone as discussed. Apply twice daily or more if needed. Continue offloading, they are in the process of getting a hospital bed. Continue optimal diabetes control and increase protein intake. Follow-up in 1 week or sooner if needed. Their questions were answered and they were advised to call with any further questions or concerns. This note was generated with [employer] dictation software. It may contain incorrect words, spelling, and punctuation that were not noted in checking the note before signing.
[2022-08-03 09:39] VITALS: BP 111/61; PULSE 85; RESP 16; TEMP 36.1
--- NOTE | 2022-08-03 17:17 | PN.PCM_ITS ---
History of Present Illness Date of Service: 08/03/22 Chief Complaint: Bilateral buttock ulcerations/erythema History of Wound: 81-year-old white male who is a transfer of care [place]. Was discharged from the wound center less than a month ago however on request of his primary care physician, he has returned. He was managed for bilateral buttock erythema/ulceration which were described as superficial. He states that over the last couple of days, there has been increased pain and irritation. Due to other chronic morbidities, he states and sleeps in a chair. He states that he tries to keep the area clean as best as he can. No chills or recorded fever. Denies nausea or vomiting. Of note, also has a history of IBS with frequent months. Progress of Wound: Continues to do really well. No new concerns reported at this time. Stage 11 ulcerations are largely healed. Objective Data Objective Data Vital Signs: Vital Signs Temp Pulse Resp BP O2 Del Method 96.9 F L 85 16 111/61 Room Air 08/03/22 09:39 08/03/22 09:39 08/03/22 09:39 08/03/22 09:39 08/03/22 09:39 Oxygen Delivery Method Room Air Charges/Coding Visit Charges Office Visits / Consults: 55222 OV L3 Est Physical Exam Const alert, oriented x3 and no apparent distress General Appearance: cooperative, comfortable and well kempt Orientation / Consciousness: awake Exam Limitations: no limitations HEENT normocephalic and hearing grossly normal bilaterally Head and Scalp: normal to inspection Eyes EOMs intact bilaterally General Eye: normal appearance of both eyes Neck full ROM and supple General: normal visual inspection Resp normal respiratory effort Effort and Inspection: able to speak in complete sentences Neuro oriented x3, CN's II-XII intact bilaterally, moves all extremities and no focal motor deficits Psych mental status grossly normal and thought process normal Appearance: grossly normal Attitude: calm Debridement Note Debridement Note Post-Debridement Measurements and Additional Note: Post-Debridement Measurements/Treatment - Nurse 1 - General Ulcer Assessment Start: 07/20/22 08:55 Freq: Status: Active Protocol: KAMILA Activity Type Activity Date Activity User E-sign Co-sign Detail Recorded Client Recorded Date Recorded By Document 07/20/22 09:12 MT Desktop 07/20/22 09:22 MT Document 07/27/22 09:27 [facility] [id number] 07/27/22 09:32 BM Document 08/03/22 09:39 [facility] [id number] 08/03/22 09:46 [facility] 07/20/22 07/27/22 08/03/22 09:12 09:27 09:39 - Today's Visit Information Type of service Follow-up Visit Follow-up Visit Follow-up Visit (Physician/POWER PLANT OPERATOR APPRENTICE (Physician/POWER PLANT OPERATOR APPRENTICE (Physician/POWER PLANT OPERATOR APPRENTICE ) ) ) Arrival Mode Ambulatory, Ambulatory, Ambulatory, Walker Walker Walker Transfer Assistance None None Accompanied by Patient Identification Verified (Name & Yes Yes Yes ) Patient Requires Transmission-Based No No Precautions Safety Precautions Fall Prevention Vital Signs Temperature (97.8 F-99.1 F) 97.0 F L 95.7 F L 96.9 F L Temperature Source Temporal Temporal Temporal Pulse Rate (60-100) 97 87 85 Pulse Location Monitor Monitor Monitor Respiratory Rate (12-18) 18 16 16 Respiratory rate source Observation Observation Observation Oxygen Delivery Method Room Air Room Air Room Air Blood Pressure (90/60-120/80) 129/64 H 145/68 H 111/61 Blood Pressure Mean (mm Hg) 85 93 77 Source Monitor Monitor Monitor Position Sitting Sitting Sitting Blood Pressure Location Left Arm Left Arm Right Arm History Since Last Visit- (Skip if this is Patient's initial visit) Have you changed medications since your No No last visit? Any new allergies or adverse reactions No No Had a fall/change in ADL's that may No No increase risk of falls Signs or symptoms of abuse and/or No No neglect since last visit Have you been in the hospital since your No No last visit? Has dressing in place as prescribed Yes Yes Has compression in place as prescribed Yes N/A N/A Has offloadiing in place as prescribed Yes N/A N/A Experienced any changes in pain level or Yes No No management Left Footwear Regular Shoe Regular Shoe Regular Shoe Right Footwear Regular Shoe Regular Shoe Regular Shoe Pain Scale: 0-10 Numeric Is Patient Pain Free? Yes Yes Yes - Nurse 1 - General Ulcer Measurement Start: 07/20/22 08:55 Freq: Status: Active Protocol: Activity Type Activity Date Activity User E-sign Co-sign Detail Recorded Client Recorded Date Recorded By Document 07/20/22 09:12 MT Desktop 07/20/22 09:22 MT Document 07/27/22 09:27 BM [id number] 07/27/22 09:32 BMF 07/20/22 07/27/22 09:12 09:27 Wound Center Nurse 1 #1 L buttock -Combined with other wound No No -Current Size (cm) - Length 0.1 0.1 -Current Size (cm) - Width 0.1 0.1 -Current Size (cm) - Depth 0.1 0.1 -Total Square Cm 0.01 0.01 -Epithelialization None Present Large 67-100% -Tunneling No No -Undermining/Tunneling No No -Circular Undermining No No -Exudate Amt Small None Present -Exudate Type Sanguineous -Wound Margin Flat & Intact Distinct, Outline Attached -Granulation Amt Large (67-100%) Small (1-33%) -Granulation Quality Red Red -Slough/Fibrin No Yes -Necrosis Amt None Present (0 Medium (34-66%) %) -Necrotic Tissue Type Adherent Slough -Texture (Alysia-wound Skin Appearance) Assessed, Assessed, Scarring Scarring,Rash -Moisture (Alysia-wound Skin Appearance) Assessed,Dry/ Assessed,Dry/ Scaly Scaly -Color (Alysia-wound Skin Appearance) Assessed, Assessed, Erythema Erythema -Temperature (Alysia-wound Skin No Abnormality No Abnormality Appearance) (Pt Warm) (Pt Warm) -Tenderness on Palpation (Alysia-wound Yes No Skin Appearance) -Ulcer Cleansing Soap and Water Rinsed/ Irrigated with Saline -Foul Odor after Cleansing No No -Anesthetic Used 4% Lidocaine 5% Lidocaine Solution Gel Lower Limb Edema Present NA WC - Nurse 2 - General Ulcer CM Notes Start: 07/20/22 08:55 Freq: Status: Active Protocol: Activity Type Activity Date Activity User E-sign Co-sign Detail Recorded Client Recorded Date Recorded By Document 07/20/22 09:47 MW [id number] 07/20/22 09:50 MW Document 07/27/22 09:57 MW [id number] 07/27/22 10:02 MW Document 08/03/22 10:11 MW [id number] 08/03/22 10:12 MW 07/20/22 07/27/22 08/03/22 09:47 09:57 10:11 Wound Center Nurse 2 #1 L buttock -Time 09:48 09:58 -Correct Patient Yes Yes -Correct Side, Site, Position Yes Yes -Correct Procedure Yes Yes -Procedure Performed No No -Post Debridement (cm) - Length 0 -Post Debridement (cm) - Width 0 -Post Debridement (cm) - Depth 0 -Total Square (Post) (cm) 0 -Tunneling No -Undermining/Tunneling No -Circular Undermining No -Wound/Ulcer Outcome Not Healed Healed- Epithelialized Pain Scale: 0-10 Numeric Is Patient Pain Free? No Yes Yes - Nurse 3 - General Ulcer D/C NN Start: 07/20/22 08:55 Freq: Status: Active Protocol: Activity Type Activity Date Activity User E-sign Co-sign Detail Recorded Client Recorded Date Recorded By Document 07/20/22 10:09 DL [id number] 07/20/22 10:24 DL Document 07/27/22 10:11 [facility] [id number] 07/27/22 10:12 BM Document 08/03/22 10:12 MW [id number] 08/03/22 10:13 MW 07/20/22 07/27/22 08/03/22 10:09 10:11 10:12 Wound Care Nurse 3 #1 L buttock -Ulcer Cleansing Rinsed/ Irrigated with Saline -Foul Odor after Cleansing No -Primary Dressing Applied Aquacel Extra -Other Dressing ABD -Primary Dressing Covered/Secured with Dry Gauze, Secured with Tape -Other Covering triamcinalone to rash -Aquacel Extra 1 Treatment Response Procedure Procedure Tolerated Well Tolerated Well Pain Scale: 0-10 Numeric Is Patient Pain Free? Yes Yes Yes Teaching: Wound Center Discharge Instructions -Person Taught Patient,Family -Teaching Method Discussion -Response to teaching Verbalize understanding WC - Visit Discharge Discharge Condition Stable Stable Stable Ambulatory Status Ambulatory Ambulatory Ambulatory, Walker Transportation Private Auto Private Auto Private Auto Accompanied by Medication Reconcilliation completed & No provided to patient/care provider Clinical Summary of Care Provided Yes Notes: dry gauze today in clinic Assessment/Plan Assessment/Plan (1) Stage I pressure ulcer of buttock: CODE(S): L89.301 - Pressure ulcer of unspecified buttock, stage 1 (2) Stage II pressure ulcer of buttock: CODE(S): L89.302 - Pressure ulcer of unspecified buttock, stage 2 (3) Dermatitis: CODE(S): L30.9 - Dermatitis, unspecified (4) Physical debility: CODE(S): R53.81 - Other malaise (5) Peripheral neuropathy: CODE(S): G62.9 - Polyneuropathy, unspecified PLAN: Plan Stage II ulcerations essentially healed. Erythema and hyperpigmentation remain but otherwise, has shown marked improvement. Continue Aquacel and triamcinolone. Continue triamcinolone for a month alternating 5 day application to 2 days rest. Continue copious amount of Aquaphor. Follow-up with primary care physician in a month for reassessment. Also follows up with dermatology. Continue offloading. Continue optimal diabetes control and increase protein intake. Their questions were answered and they were advised to call with any further questions or concerns. Discharge from the wound center. This note was generated with [employer] dictation software. It may contain incorrect words, spelling, and punctuation that were not noted in checking the note before signing.
== END 2022-08-04 10:35 | disposition home or self-care (01) ==
LOC: WC 09:30
PROVIDERS: PCP Internal Medicine; Visit Provider Internal Medicine
DX: L89.301 Pressure ulcer of unspecified buttock, stage 1 (principal); L89.302 Pressure ulcer of unspecified buttock, stage 2; L30.9 Dermatitis, unspecified; R53.81 Other malaise; G62.9 Polyneuropathy, unspecified
CPT/HCPCS: 99212; 99213; G0463

== ENCOUNTER → 2023-01-05 | Outpatient (CLI) | payer MEDICARE, SELFPAY ==
[2022-05-31 09:48] VITALS: BMI 37.9
[2023-01-05 11:25] LABS: Absolute Lymphocyte Count 1.38 X10^3/uL (0.83-4.51); Absolute Neutrophil Count 3.6 X10^3/uL (2.0-7.7); Basophil# 0.02 X10^3/uL; Basophil% 0.3 % (0-1); Eosinophil# 0.27 X10^3/uL; Eosinophils% 4.5 % (0-5); Hematocrit 41.4 % (40-54); Hemoglobin 13.1 g/dL (13.0-16.5); Lymphocyte # 1.38 X10^3/ul (0.83-4.51); Lymphocyte % 22.8 % (19-41); Mean Corp Hgb Conc 31.6 g/dL (32-36); Mean Corpuscular Hgb 27.5 pg (27.0-32.0); Mean Platelet Vol. 10.3 fl (6.2-12.0); Monocyte# 0.71 X10^3/uL; Monocyte% 11.8 % (0-10); NRBC Flagged by Analyzer 0 % (0-5); Neutrophil # 3.63 X10^3/uL (2.7-7.7); Neutrophil % 60.1 % (47-70); Platelet Count 188 K/mm3 (150-450); RBC Distribution Width CV 13.3 % (11.6-14.6); Red Blood Count 4.76 M/mm3 (4.6-6.2)
[2023-01-05 11:59] LABS: ALB/GLOB Ratio 0.9 RATIO (0.9-2.4); AST(SGOT) 103 U/L (15-37); Alanine Aminotransfer ALT/SGPT 74 U/L (16-61); Albumin, Serum 3.5 g/dL (3.2-5.0); Alkaline Phosphatase 174 U/L (45-117); Anion Gap 7 (5-15); BUN 17 mg/dL (7-18); BUN/Creat Ratio 18.4 RATIO (10-20); Calcium,Total 9.3 mg/dL (8.5-10.1); Chloride 104 mmol/L (98-107); Cholesterol 126 mg/dL (200); Creatinine, Serum 0.92 mg/dL (0.70-1.30); EST Glomerular Filtration Rate 83 mL/min (>60); Est Glom Filt Rate - Afr Amer 101 mL/min (>60); Glucose 189 mg/dL (74-106); High Density Lipoprotein 52 mg/dL; Potassium 4.2 mmol/L (3.5-5.1); Protein, Total 7.5 g/dL (6.4-8.2); Sodium Level 139 mmol/L (136-145); Thyroid Stim Hormone (TSH) 3.55 uIU/mL (0.358-3.74); Triglycerides 101 mg/dL; Very Low Density Lipoprotein 20 mg/dL (5-40)
== END | disposition home or self-care (01) ==
LOC: LAB 10:36
PROVIDERS: PCP Internal Medicine; Visit Provider Internal Medicine
DX: I25.10 Atherosclerotic heart disease of native coronary artery without angina pectoris (principal); E11.9 Type 2 diabetes mellitus without complications; R19.7 Diarrhea, unspecified; L89.91 Pressure ulcer of unspecified site, stage 1; E78.5 Hyperlipidemia, unspecified; I10 Essential (primary) hypertension; E66.9 Obesity, unspecified; Z95.5 Presence of coronary angioplasty implant and graft
CPT/HCPCS: 36415; 80053; 80061; 84443; 85025

== ENCOUNTER → 2023-01-11 | Outpatient (CLI) | payer MEDICARE, SELFPAY ==
[2022-05-31 09:48] VITALS: BMI 37.9
--- NOTE | 2023-01-11 09:47 | US_ITS ---
STUDY: ABDOMINAL ULTRASOUND - RIGHT UPPER QUADRANT REASON FOR VISIT: Male, 82 years old . Elevated liver function tests. Prior cholecystectomy. TECHNIQUE: Ultrasound evaluation of the right upper quadrant was performed with real-time and static magallanes-scale imaging. TECHNICAL QUALITY: Adequate. COMPARISON: None. FINDINGS: Liver: The liver is enlarged and measures 20.2 cm. There is a heterogeneous echogenicity of the liver. The bile ducts are within normal limits. There is hepatic color flow. The direction of portal flow is hepatopetal. There is no demonstrated mass lesion. Gallbladder: The patient is status post cholecystectomy. Common Bile Duct (C.B.D.): The common bile duct measures 7 mm. Pancreas: There is nonvisualization of the pancreas due to overlying bowel gas. Right Kidney: Normal size of the right kidney. The right kidney measures 10.6 cm x 6.3 cm x 5.8 cm. Normal renal cortex. The right cortex measures 1.2 cm. There is no demonstrated renal mass or cyst. There is no right hydronephrosis. US/Liver IMPRESSION: Hepatomegaly. Heterogeneous echotexture of the liver. Status post cholecystectomy. Electronically Signed: Heron Fritz MD at 14:26 EST ,
== END | disposition home or self-care (01) ==
LOC: US 09:43
PROVIDERS: PCP Internal Medicine; Referring Provider Internal Medicine; Visit Provider Internal Medicine
DX: R74.8 Abnormal levels of other serum enzymes (principal)
CPT/HCPCS: 76705

== ENCOUNTER → 2023-02-15 | Outpatient (CLI) | payer MEDICARE, SELFPAY ==
[2022-05-31 09:48] VITALS: BMI 37.9
--- NOTE | 2023-02-15 15:15 | RAD_ITS ---
INDICATION: CHF, dyspnea EXAMINATION/TECHNIQUE: X-RAY - XR Chest 2 Views COMPARISON: 03/25/2022. FINDINGS: LINES/DEVICES: None. LUNGS: No consolidation. No pneumothorax. MEDIASTINUM: Aorta is atherosclerotic. CARDIAC SILHOUETTE: Not enlarged. BONES AND SOFT TISSUES: Degenerative changes in the dorsal spine and left shoulder. Surgical hardware in the right shoulder. RAD/Chest PA and Lateral IMPRESSION: No evidence of active intrathoracic disease. Electronically Signed: Anaya Silva MD at 7:25 EDT ,
[2023-02-15 15:39] LABS: Absolute Lymphocyte Count 1.31 X10^3/uL (0.83-4.51); Absolute Neutrophil Count 3.6 X10^3/uL (2.0-7.7); Basophil# 0.03 X10^3/uL; Basophil% 0.5 % (0-1); Eosinophil# 0.14 X10^3/uL; Eosinophils% 2.4 % (0-5); Hematocrit 37.4 % (40-54); Lymphocyte # 1.31 X10^3/ul (0.83-4.51); Lymphocyte % 22.7 % (19-41); Mean Corp Hgb Conc 32.1 g/dL (32-36); Mean Corpuscular Hgb 26.8 pg (27.0-32.0); Mean Corpuscular Volume 83.7 fL (80-94); Monocyte# 0.68 X10^3/uL; Monocyte% 11.8 % (0-10); NRBC Flagged by Analyzer 0 % (0-5); Neutrophil # 3.61 X10^3/uL (2.7-7.7); Neutrophil % 62.4 % (47-70); Platelet Count 215 K/mm3 (150-450); RBC Distribution Width CV 14.4 % (11.6-14.6); RBC Distribution Width SD 43.9 fl (35.1-43.9); Red Blood Count 4.47 M/mm3 (4.6-6.2); White Blood Count 5.8 K/mm3 (4.4-11.0)
[2023-02-15 16:03] LABS: BNP,B-Type NATRIURETIC PEPTIDE 72.2 pg/mL (0-100)
[2023-02-15 16:27] LABS: ALB/GLOB Ratio 0.8 RATIO (0.9-2.4); AST(SGOT) 132 U/L (15-37); Alanine Aminotransfer ALT/SGPT 67 U/L (16-61); Alkaline Phosphatase 268 U/L (45-117); Anion Gap 8 (5-15); BUN 26 mg/dL (7-18); BUN/Creat Ratio 30.7 RATIO (10-20); Calcium,Total 9.7 mg/dL (8.5-10.1); Chloride 106 mmol/L (98-107); Creatinine, Serum 0.85 mg/dL (0.70-1.30); EST Glomerular Filtration Rate 92 mL/min (>60); Est Glom Filt Rate - Afr Amer 111 mL/min (>60); Globulin 3.7 g/dL (2.2-4.2); Glucose 156 mg/dL (74-106); Lipase 123 U/L (73-393); Magnesium 1.7 mg/dL (1.6-2.6); Potassium 3.9 mmol/L (3.5-5.1); Protein, Total 6.7 g/dL (6.4-8.2); Sodium Level 138 mmol/L (136-145)
== END | disposition home or self-care (01) ==
LOC: LAB 14:53
PROVIDERS: PCP Internal Medicine; Visit Provider Internal Medicine
DX: I11.0 Hypertensive heart disease with heart failure (principal); I50.9 Heart failure, unspecified; R74.8 Abnormal levels of other serum enzymes; E78.5 Hyperlipidemia, unspecified; I25.10 Atherosclerotic heart disease of native coronary artery without angina pectoris; R06.00 Dyspnea, unspecified; Z95.5 Presence of coronary angioplasty implant and graft
CPT/HCPCS: 36415; 71046; 80053; 83690; 83735; 83880; 85025

== ENCOUNTER → 2023-02-19 | Outpatient (CLI) | payer MEDICARE, SELFPAY ==
[2022-05-31 09:48] VITALS: BMI 37.9
--- NOTE | 2023-02-19 12:51 | CT_ITS ---
STUDY: CT ABDOMEN AND PELVIS WITH CONTRAST REASON FOR EXAM: Male, 82 years old. Diffuse abdominal pain, elevated LFTs RADIATION DOSAGE (If Supplied By Facility): CTDIvol = ( 15.42 ) mGy, DLP = ( 1359.49 ) mGycm TECHNIQUE: Transaxial images were obtained from the dome of the diaphragm to the symphysis pubis without oral contrast. Oral and amp; IV Readi-CAT and amp; 100mL Isovue-300 was administered. Sagittal and coronal images were reconstructed. Individualized dose optimization techniques were used for this CT. COMPARISON: 02/16/2019 FINDINGS: Chronic interstitial changes in the lung bases with dependent atelectasis. The visualized portions of the heart are within normal limits. The liver is markedly abnormal with some fatty infiltration and concerning heterogeneity since the previous study. 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 The heterogeneity within the liver could also represent metastasis particularly on image #59 of the coronal images there appears to be some subtle peripheral enhancement around the low-density lesion. There is a moderate amount of ascites new since the previous study. There are surgical clips in the gallbladder fossa consistent with a prior cholecystectomy. Normal spleen. Normal pancreas. In additional to the portal vein thrombosis, there is evidence to suspect low-density thrombus within the superior mesenteric vein best seen on coronal recon images 56 through 64. The SMA is not show evidence of low-density thrombus. There is a stable 2 cm low attenuation left adrenal mass, consistent with an adrenal adenoma. Normal right adrenal gland. Normal right kidney. Normal left kidney. Stomach is incompletely distended but shows some thickening and perigastric fluid suggesting gastritis. Normal small intestine. Scattered colonic diverticula without CT evidence of acute diverticulitis. There is non-visualization of the appendix. Normal abdominal aorta. Normal inferior vena cava. Normal retroperitoneum. Normal urinary bladder. Normal abdominal wall. There are diffuse degenerative changes of the visualized lumbar spine, and pelvis. CT/Abdomen/Pelvis WITH Contrast IMPRESSION: Significant interval change since the previous study. In addition to fatty infiltration of the liver, there is now significant abnormal heterogeneity to the liver with hyperattenuation nodular border suggesting cirrhosis and possibility of a metastatic lesion in the right lobe best seen on coronal recon image 59. 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 Electronically Signed: Viraj Babin MD at 15:10 EDT ,
== END | disposition home or self-care (01) ==
LOC: CT 12:51
PROVIDERS: PCP Internal Medicine; Referring Provider Internal Medicine; Visit Provider Internal Medicine
DX: R10.9 Unspecified abdominal pain (principal); R74.8 Abnormal levels of other serum enzymes; R14.0 Abdominal distension (gaseous)
CPT/HCPCS: 74177; Q9967

== ENCOUNTER → 2023-03-12 | Outpatient (CLI) | payer MEDICARE, SELFPAY ==
[2022-05-31 09:48] VITALS: BMI 37.9
[2023-03-12 11:30] LABS: Absolute Lymphocyte Count 1.26 X10^3/uL (0.83-4.51); Absolute Neutrophil Count 5.8 X10^3/uL (2.0-7.7); Basophil# 0.04 X10^3/uL; Basophil% 0.5 % (0-1); Eosinophil# 0.15 X10^3/uL; Eosinophils% 1.8 % (0-5); Hematocrit 37.4 % (40-54); Hemoglobin 12.3 g/dL (13.0-16.5); Lymphocyte # 1.26 X10^3/ul (0.83-4.51); Lymphocyte % 15.4 % (19-41); Mean Corp Hgb Conc 32.9 g/dL (32-36); Mean Corpuscular Hgb 26.6 pg (27.0-32.0); Mean Platelet Vol. 9.2 fl (6.2-12.0); Monocyte# 0.91 X10^3/uL; Monocyte% 11.2 % (0-10); NRBC Flagged by Analyzer 0 % (0-5); Neutrophil # 5.78 X10^3/uL (2.7-7.7); Neutrophil % 70.9 % (47-70); Platelet Count 279 K/mm3 (150-450); RBC Distribution Width CV 16.3 % (11.6-14.6); RBC Distribution Width SD 46.9 fl (35.1-43.9); Red Blood Count 4.62 M/mm3 (4.6-6.2); White Blood Count 8.2 K/mm3 (4.4-11.0)
--- NOTE | 2023-03-12 11:40 | US_ITS ---
PROCEDURE: Ultrasound guided paracentesis. DATE OF EXAMINATION: March 12, 2023. INDICATION: Male, 82 years old. Ascites. PHYSICIAN: Heron Fritz M.D. TECHNIQUE: The risks, benefits, and alternatives to the procedure were explained to the patient. The specific risks of bleeding, infection, and damage to bowel were detailed and accepted. Witnessed informed consent was obtained. The abdomen was ultrasonographically surveyed. An appropriate pocket of fluid was identified at the left lower quadrant. The skin were cleaned and prepped in the usual sterile fashion. Using ultrasound guidance, the peritoneal cavity was accessed with a 5-Vietnamese paracentesis needle/catheter system. The trocar was removed. A total of 1350 ml of ed-colored fluid were removed from the peritoneal cavity. A 100 mL sample was sent to the laboratory for analysis. The catheter was removed and a sterile dressing was applied. The procedure was well tolerated. US/Paracentesis with US IMPRESSION: Ultrasound guided paracentesis. Electronically Signed: Heron Fritz MD at 13:04 EDT ,
[2023-03-12 11:45] LABS: ALB/GLOB Ratio 0.7 RATIO (0.9-2.4); AST(SGOT) 138 U/L (15-37); Alanine Aminotransfer ALT/SGPT 62 U/L (16-61); Albumin, Serum 2.8 g/dL (3.2-5.0); Alkaline Phosphatase 471 U/L (45-117); Anion Gap 7 (5-15); BUN 24 mg/dL (7-18); BUN/Creat Ratio 25.9 RATIO (10-20); Calcium,Total 9.8 mg/dL (8.5-10.1); Chloride 103 mmol/L (98-107); Creatinine, Serum 0.93 mg/dL (0.70-1.30); EST Glomerular Filtration Rate 83 mL/min (>60); Est Glom Filt Rate - Afr Amer 100 mL/min (>60); Globulin 4.1 g/dL (2.2-4.2); Glucose 147 mg/dL (74-106); Potassium 4.3 mmol/L (3.5-5.1); Protein, Total 6.9 g/dL (6.4-8.2); Sodium Level 134 mmol/L (136-145)
[2023-03-12 12:04] VITALS: BP 135/69; PULSE 75; RESP 18; O2SAT 94
[2023-03-12 12:20] VITALS: BP 135/66; BP 148/74; PULSE 76; PULSE 77; PULSE 81; RESP 18; O2SAT 93; O2SAT 94
[2023-03-12] MEDS: Lidocaine 2% (20 ml mdv) 20 ML Vial INFILT (12:22)
== END | disposition home or self-care (01) ==
PROVIDERS: PCP Internal Medicine; Referring Provider Internal Medicine; Visit Provider Internal Medicine
DX: I81 Portal vein thrombosis (principal); C22.0 Liver cell carcinoma; I50.9 Heart failure, unspecified; R18.8 Other ascites; I25.10 Atherosclerotic heart disease of native coronary artery without angina pectoris; R10.10 Upper abdominal pain, unspecified; R14.0 Abdominal distension (gaseous); R74.8 Abnormal levels of other serum enzymes
CPT/HCPCS: 36415; 49083; 80053; 85025

== ENCOUNTER 2023-03-31 17:37 | Emergency (ER) | payer MEDICARE, SELFPAY ==
[2022-05-31 09:48] VITALS: BMI 37.9
[2023-03-31 17:38] VITALS: BP 106/56; PULSE 93; RESP 18; TEMP 36; O2SAT 97
[2023-03-31 17:47] VITALS: BMI 32.8
--- NOTE | 2023-03-31 17:58 | CT_ITS ---
EXAM: CT ABDOMEN AND PELVIS WITHOUT INTRAVENOUS CONTRAST CLINICAL INDICATION: abdominal TECHNIQUE: Helically acquired images were obtained of the abdomen and pelvis without intravenous contrast. This CT exam was performed using one or more of the following dose reduction techniques: automated exposure control, adjustment of the mA and/or kV according to patient size, and/or use of iterative reconstruction technique. RADIATION DOSE: CTDIvol = 16.57 mGy, DLP = 923.43 mGy-cm COMPARISON: 02/19/2023 FINDINGS: LOWER THORAX: Fibrotic changes in both lung bases. No cardiomegaly. No significant pericardial effusion. ABDOMEN: LIVER: Heterogeneous liver with nodular surface pattern consistent with cirrhosis. No gross mass. GALLBLADDER AND BILE DUCTS: Absent gallbladder. No intra- or extrahepatic biliary ductal dilation. PANCREAS: Unremarkable. No focal cystic mass. SPLEEN: Unremarkable. Normal size without focal cystic or solid mass. ADRENALS: Stable 2 cm mass of the left adrenal gland. Normal right adrenal gland. KIDNEYS AND URETERS: Unremarkable. Normal renal size and position. No hydronephrosis. STOMACH AND BOWEL: Evaluation of the GI tract is limited by absence of oral contrast. Suspicion of thickening of the wall of the visualized distal esophagus, stable. Consider endoscopy. Cannot exclude stomach wall thickening. No dilated loops of bowel or evidence for obstruction. Cannot exclude segmental thickening of the cuellar of the small or large bowel. Cannot exclude enteritis or colitis. Diverticulosis without definite diverticulitis. Appendix within normal limits. PELVIS: APPENDIX: No evidence of acute appendicitis. BLADDER: Unremarkable. REPRODUCTIVE: Unremarkable as visualized. No mass. ABDOMEN and PELVIS: INTRAPERITONEAL SPACE: Since prior study patient has had placement of subcutaneous drain across the anterior midabdomen. Minimal ascites over the surface of the liver, markedly improved since previous exam. No free air. BONES/JOINTS: Degenerative and postop changes of the spine, stable. No suspicious lytic or blastic abnormality. SOFT TISSUES: Stable small fat-containing umbilical hernia. Anasarca along the right chest wall. VASCULATURE: Unremarkable. Abdominal aorta is non-dilated. LYMPH NODES: Unremarkable. No enlarged lymph nodes. CT/Abdomen/Pelvis without Cont IMPRESSION: 1. Status post placement of percutaneous abdominal drain. 2. Near complete resolution of previous ascites. 3. Several other chronic findings, stable as above. 4. Suspicion of thickening of the wall of the visualized distal esophagus, stable. Consider endoscopy. Electronically Signed: Taras Aldridge MD at 19:21 EDT ,
--- NOTE | 2023-03-31 19:03 | EX.ED.DYSGE1 ---
HPI <YURIY Kasper - Last Filed: 03/31/23 20:17> History of Present Illness Chief Complaint: Abd Pain Narrative Narrative: Patient is an 82-year-old male with history of hyperlipidemia neuropathy, obesity who currently has malignant ascites from liver cancer. Patient had a port placed to the right lower abdomen for paracentesis since he will be receiving multiple paracentesis secondary to the cancer. Patient is currently on hospice. They had difficulty draining from the drain in his abdomen today, is here for evaluation. Dr. Parikh did place the port and told to come to the emergency department. Patient states he feels full in his abdomen. No fever or chills. PFSH <YURIY Kasper - Last Filed: 03/31/23 20:17> [facility] Medical History Allergic rhinitis, cause unspecified Arthritis Asthma Atherosclerosis of coronary artery of [place] heart without angina pectoris Benign prostatic hyperplasia with urinary obstruction and other lower urinary tract symptoms Blood dyscrasia BPH (benign prostatic hyperplasia) Carotid bruit Cervical spondylosis Cervical spondylosis without myelopathy Coronary artery disease Diverticulosis of colon (without mention of hemorrhage) Elevated liver enzymes Essential hypertension Fatty liver Fibromyalgia GERD (gastroesophageal reflux disease) History of ST elevation myocardial infarction (STEMI) (01/14/17) IBS (irritable bowel syndrome) Insomnia Internal hemorrhoids without mention of complication Liver mass Lower extremity weakness Neuropathy Nonrheumatic aortic (valve) stenosis Obesity 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) Osteoarthritis Pain of left calf Peripheral neuropathy Phlebitis and thrombophlebitis of lower extremities, unspecified Physical debility Rheumatoid synovitis Skin cancer Stage I pressure ulcer of buttock Stage II pressure ulcer of buttock Transient speech disturbance Type 2 diabetes mellitus without complications Home Medications tamsulosin 0.4 mg capsule 0.4 mg PO BID prostate #180 caps 02/15/23 [Rx Last Taken Unknown] tramadol 50 mg tablet 25 mg PO Q6H 03/06/23 [History Last Taken Unknown] carvedilol 6.25 mg tablet 6.25 mg PO BID #60 tabs 03/07/23 [Rx Last Taken Unknown] furosemide 20 mg tablet 20 mg PO DAILY 03/07/23 [History Last Taken Unknown] support hose #1 ea 03/07/23 [Rx Last Taken Unknown] enoxaparin 120 mg/0.8 mL subcutaneous syringe 120 mg subcut BID 03/26/23 [History Last Taken Unknown] spironolactone 50 mg tablet 50 mg PO DAILY 03/26/23 [History Last Taken Unknown] melatonin 10 mg tablet 25 mg PO QHS 03/31/23 [History Last Taken Unknown] Allergy/AdvReac Type Severity Reaction Status Date / Time dulaglutide [From Trulicity] Allergy Severe nausea, Verified 03/31/23 21:11 vomiting, dry heaves acetaminophen [From Percocet] Allergy Unknown Verified 03/31/23 21:11 hydrocodone [From Vicodin] Allergy Unknown Verified 03/31/23 21:11 lactase [From Dairy Aid] Allergy Unknown Verified 03/31/23 21:11 mold Allergy Unknown Verified 03/31/23 21:11 oxycodone [From Percocet] Allergy Unknown Verified 03/31/23 21:11 Penicillins Allergy Unknown Verified 03/31/23 21:11 pollen extracts Allergy Unknown Verified 03/31/23 21:11 rofecoxib [From Vioxx] Allergy Unknown Verified 03/31/23 21:11 Sulfa (Sulfonamide Allergy Unknown Verified 03/31/23 21:11 Antibiotics) Family History Father CAD (coronary artery disease) Other Arthritis Asthma Bowel disease Cancer Diabetes Skin cancer Surgical History H/O arthroscopy of left knee History of back surgery History of basal cell carcinoma excision History of biopsy of temporal artery (01/2021) History of cataract surgery History of coronary artery stent placement (01/14/17) History of eye surgery History of left heart catheterization (03/28/22) History of prostate surgery History of right shoulder replacement History of tonsillectomy Hx of cholecystectomy Social History Smoking Status: Unknown if ever smoked how long ago did patient quit smokin alcohol intake: never substance use type: does not use caffeine: No what type of physical activity do you participate in: bicycling frequency: 3-4 times per week ROS <YURIY Kasper - Last Filed: 03/31/23 20:17> ROS ED ROS Narrative Constitutional: Negative for fever, chills, weight loss, weakness Eyes: Negative for vision loss, vision change, double vision ENT: Negative for any sore throat, ear pain, congestion Cardiovascular: Negative for any chest pain, tightness, palpitations Respiratory: Negative for any cough, sputum production, hemoptysis, dyspnea, dyspnea on exertion, orthopnea Gastrointestinal: Negative for any nausea, vomiting, diarrhea, constipation, blood in stool, blood in vomit. Positive for abdominal bloating : Negative for any urinary frequency, dysuria, retention, blood in urine Muscle skeletal: Negative for any muscle joint pain, stiffness, myalgias, arthralgias, neck pain, back pain Neurological: Negative for any headache, syncope, numbness or tingling, dizziness Skin: Negative for any rashes, lumps, itching, abrasions, lacerations Psychiatric: Negative for any depression, anxiety, stress, suicidal ideation, homicidal ideation Hematologic: Negative for any easy bruising, excessive bruising, easy bleeding Allergies: Negative for any eczema, hives, rash EXAM <YURIY Kasper - Last Filed: 03/31/23 20:17> Physical Exam Narrative Exam Narrative: Vital signs reviewed. HEET: Head normocephalic atraumatic, TMs clear bilaterally. Posterior pharynx is clear, moist mucous membranes. Nares clear bilaterally. Neck: Supple with no lymphadenopathy or tenderness. No signs of meningismus, negative jolt sign. Cardiac: Regular rate and rhythm no murmurs gallops or rubs, equal peripheral pulses bilaterally. Respiratory: Lungs clear to auscultation bilaterally. No chest tenderness. Abdomen: Soft, . No abdominal bruit or pulsatile masses. No hepatosplenomegaly. Patient's abdomen does appear to be distended, there is no peritoneal signs. Patient does have a port that is covered to the right lower quadrant, he states it was leaking however there appears to be no leaking at this time. Extremities: No peripheral edema, no signs of gross trauma or deformity. Active full range of motion of all extremities. Neuro: Cranial nerves II through XII intact, no focal neurological deficits. Skin: Clean dry and intact with no rash, purpura, petechiae, vesicles or pustules. Backs/flank: No CVA tenderness, no midline spinal tenderness, no deformity. Psych: Normal mood and affect. No SI, HI or acute psychosis. Const Vital Signs: 03/31/23 17:38 03/31/23 20:12 Temperature 96.8 F L Temperature Source Temporal Pulse Rate 93 Respiratory Rate 18 18 Blood Pressure 106/56 L Blood Pressure Mean 72 Pulse Ox 97 97 Oxygen Delivery Method Room Air Room Air Positive obese Nutritional Appearance: obese <Dr. Chase Torres DO - Last Filed: 03/31/23 22:27> Physical Exam Const Vital Signs: 03/31/23 17:38 03/31/23 20:12 Temperature 96.8 F L Temperature Source Temporal Pulse Rate 93 Respiratory Rate 18 18 Blood Pressure 106/56 L Blood Pressure Mean 72 Pulse Ox 97 97 Oxygen Delivery Method Room Air Room Air MDM <YURIY Kasper - Last Filed: 03/31/23 20:17> MDM Radiography Diagnostic Testing: Clinical Impression(s) from Imaging Studies Abdomen/Pelvis CT 03/31/23 17:58 IMPRESSION: 1. Status post placement of percutaneous abdominal drain. 2. Near complete resolution of previous ascites. 3. Several other chronic findings, stable as above. 4. Suspicion of thickening of the wall of the visualized distal esophagus, stable. Consider endoscopy. Electronically Signed: Taras Aldridge MD at 19:21 EDT , Treatment and Re-Evaluation :: Patient appears well, patient appears nontoxic, vital signs are stable. Patient presents to the emergency department for complaints of port not working for paracentesis. Patient will receive a CT scan of the abdomen pelvis, no blood work we ordered at this time. There is no evidence of any infection. Patient is in no distress Patient did receive a CT scan without contrast of the abdomen pelvis. This did show status postplacement of a percutaneous abdominal drain. Near complete resolution of previous ascites. Several other chronic findings. Suspicion of thickening of the wall of the visualized distal esophagus, stable, consider endoscopic. At this time, I did speak with Dr. Gonzalez regarding this. He did try to explain to the patient, the patient's care provider that a small amount of fluid leaking from the side of the belly from the drain is not abnormal. Patient CT scan shows no fluid. No other acute abnormality. I did speak with the patient about this, they were upset however after they spoke with me at length as well as the attending, they felt much better. They will be discharged home and continue on his treatment with hospice. Both the , the patient are happy with the plan of care, all questions answered. <Dr. Chase Torres, DO - Last Filed: 03/31/23 22:27> [facility] Narrative Medical decision making narrative: Attending note: Patient seen and evaluated with restaurant greeter. I perform my own [id number] evaluation. I agree with the plan of work-up. History of recent metastatic liver cancer ascites, Pleurx catheter placed 2 days ago in the office by Dr. Saldaña. They report increasing drainage from the dressing. He is concerned of increasing abdominal distention. He is followed by hospice care, they evaluated him they discussed with on-call surgeon Dr. Gonzalez, was sent in here for evaluation. Patient had dressing right side abdomen. Abdomen no significant distention. Patient had a CT scan, noted essentially resolution of the ascites from previously. There is only mild ascites in the anterior aspect of the liver. Also noted some thickening of the distal esophagus. He was told results of his CT negative for any ascites. They were initially frustrated concerning for his abdominal discomfort. I discussed that he is with hospice, discussed further work-up with lab studies if he is concerned he can treat his pain symptoms however likely will need to be removed from hospice. Discussed pain medication options he states oxycodone causes hallucinations Vicodin causes vomiting he has tolerated morphine however did not want this in the emergency department as he will be more sleepy and able to get into his house. He is currently on half tab of tramadol, I discussed can increase to 1 full tab, he did not want this here in the department, he would like to go home and take the medications when he gets home. Therefore they were discharged with outpatient management with hospice. Radiography Diagnostic Testing: Clinical Impression(s) from Imaging Studies Abdomen/Pelvis CT 03/31/23 17:58 IMPRESSION: 1. Status post placement of percutaneous abdominal drain. 2. Near complete resolution of previous ascites. 3. Several other chronic findings, stable as above. 4. Suspicion of thickening of the wall of the visualized distal esophagus, stable. Consider endoscopy. Electronically Signed: Taras Aldridge MD at 19:21 EDT , Discharge Plan Triage Chief Complaint: Abd Pain ED Midlevel Provider: Matias Manzo ED Provider: Chase Torres Dx/Rx/DC Orders Clinical Impression: Abdominal pain, Cancer of liver, History of liver cancer Instructions: Abdominal Pain Prescriptions: No Action tramadol 50 mg tablet 25 mg PO Q6H furosemide 20 mg tablet 20 mg PO DAILY enoxaparin 120 mg/0.8 mL syringe 120 mg subcut BID spironolactone 50 mg tablet 50 mg PO DAILY melatonin 10 mg Tablet 25 mg PO QHS tamsulosin 0.4 mg capsule 0.4 mg PO BID Qty: 180 3RF (DME) support hose See Rx Instructions .Route .MEDSUPPLY Qty: 1 0RF Rx Instructions: As directed carvedilol 6.25 mg tablet 6.25 mg PO BID Qty: 60 5RF Rx Instructions: must administer with a meal/food Primary Care Provider: Eulalia Munroe Referrals: Eulalia Munroe MD [Primary Care Provider] - Activity Restrictions/Additional Instructions: OncologistPlease follow-up with Dr. Kati li Disposition Disposition: Home, Self Care Discharge Date/Time: 03/31/23 20:23
[2023-03-31 20:12] VITALS: RESP 18; O2SAT 97
== END 2023-03-31 20:23 | disposition home or self-care (01) ==
PROVIDERS: Emergency Provider Emergency Medicine; PCP Internal Medicine; Visit Provider Emergency Medicine
DX: C22.9 Malignant neoplasm of liver, not specified as primary or secondary (principal); E11.42 Type 2 diabetes mellitus with diabetic polyneuropathy; R18.0 Malignant ascites; R10.9 Unspecified abdominal pain; I25.10 Atherosclerotic heart disease of native coronary artery without angina pectoris; I10 Essential (primary) hypertension; E78.5 Hyperlipidemia, unspecified; Z97.8 Presence of other specified devices; N40.0 Benign prostatic hyperplasia without lower urinary tract symptoms; Z79.899 Other long term (current) drug therapy; I25.2 Old myocardial infarction
CPT/HCPCS: 99282; 74176

== ENCOUNTER 2023-03-31 21:10 | Emergency (ER) | payer MEDICARE, SELFPAY ==
[2022-05-31 09:48] VITALS: BMI 37.9
[2023-03-31 21:11] VITALS: TEMP 36.5; BMI 33.0
[2023-03-31 21:14] VITALS: BP 97/65; PULSE 92; RESP 18; O2SAT 95
--- NOTE | 2023-03-31 21:23 | EX.ED.DYSGE1 ---
HPI History of Present Illness Chief Complaint: Nausea/Vomiting Informant: patient Narrative Narrative: Patient presents secondary to vomiting blood. Patient has a history of liver cancer and is on hospice care. He had a Pleurx catheter placed to his abdomen recently and was seen in the ER earlier today with abdominal distention. CT scan revealed no evidence of fluid collection. Patient was discharged to home. Family states that he got long-term into the house when he felt nauseated and had to sit to rest. He then got up and walked into the kitchen and sat at the table where he asked for a bucket and then vomited a large amount of bright red blood. [facility] Medical History Allergic rhinitis, cause unspecified Arthritis Asthma Atherosclerosis of coronary artery of [place] heart without angina pectoris Benign prostatic hyperplasia with urinary obstruction and other lower urinary tract symptoms Blood dyscrasia BPH (benign prostatic hyperplasia) Carotid bruit Cervical spondylosis Cervical spondylosis without myelopathy Coronary artery disease Diverticulosis of colon (without mention of hemorrhage) Elevated liver enzymes Essential hypertension Fatty liver Fibromyalgia GERD (gastroesophageal reflux disease) History of ST elevation myocardial infarction (STEMI) (01/14/17) IBS (irritable bowel syndrome) Insomnia Internal hemorrhoids without mention of complication Liver mass Lower extremity weakness Neuropathy Nonrheumatic aortic (valve) stenosis Obesity 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) Osteoarthritis Pain of left calf Peripheral neuropathy Phlebitis and thrombophlebitis of lower extremities, unspecified Physical debility Rheumatoid synovitis Skin cancer Stage I pressure ulcer of buttock Stage II pressure ulcer of buttock Transient speech disturbance Type 2 diabetes mellitus without complications Home Medications tamsulosin 0.4 mg capsule 0.4 mg PO BID prostate #180 caps 02/15/23 [Rx Last Taken Unknown] tramadol 50 mg tablet 25 mg PO Q6H 03/06/23 [History Last Taken Unknown] carvedilol 6.25 mg tablet 6.25 mg PO BID #60 tabs 03/07/23 [Rx Last Taken Unknown] furosemide 20 mg tablet 20 mg PO DAILY 03/07/23 [History Last Taken Unknown] support hose #1 ea 03/07/23 [Rx Last Taken Unknown] enoxaparin 120 mg/0.8 mL subcutaneous syringe 120 mg subcut BID 03/26/23 [History Last Taken Unknown] spironolactone 50 mg tablet 50 mg PO DAILY 03/26/23 [History Last Taken Unknown] melatonin 10 mg tablet 25 mg PO QHS 03/31/23 [History Last Taken Unknown] Allergy/AdvReac Type Severity Reaction Status Date / Time dulaglutide [From Trulicity] Allergy Severe nausea, Verified 03/31/23 21:11 vomiting, dry heaves acetaminophen [From Percocet] Allergy Unknown Verified 03/31/23 21:11 hydrocodone [From Vicodin] Allergy Unknown Verified 03/31/23 21:11 lactase [From Dairy Aid] Allergy Unknown Verified 03/31/23 21:11 mold Allergy Unknown Verified 03/31/23 21:11 oxycodone [From Percocet] Allergy Unknown Verified 03/31/23 21:11 Penicillins Allergy Unknown Verified 03/31/23 21:11 pollen extracts Allergy Unknown Verified 03/31/23 21:11 rofecoxib [From Vioxx] Allergy Unknown Verified 03/31/23 21:11 Sulfa (Sulfonamide Allergy Unknown Verified 03/31/23 21:11 Antibiotics) Family History Father CAD (coronary artery disease) Other Arthritis Asthma Bowel disease Cancer Diabetes Skin cancer Surgical History H/O arthroscopy of left knee History of back surgery History of basal cell carcinoma excision History of biopsy of temporal artery (01/2021) History of cataract surgery History of coronary artery stent placement (01/14/17) History of eye surgery History of left heart catheterization (03/28/22) History of prostate surgery History of right shoulder replacement History of tonsillectomy Hx of cholecystectomy Social History Smoking Status: Unknown if ever smoked how long ago did patient quit smokin alcohol intake: never substance use type: does not use caffeine: No what type of physical activity do you participate in: bicycling frequency: 3-4 times per week ROS ROS ED Constitutional Constitutional ED: Denies chills or fever(s) Eyes Eyes: Denies change in vision or discharge from eye(s) ENT ENT ED: Denies discharge from eye(s), rhinorrhea or sore throat Cardiovascular Cardiovascular: Denies chest pain or palpitations Respiratory/Chest Respiratory/Chest: Denies cough or dyspnea Gastrointestinal Gastrointestinal: Reports abdominal pain, nausea, vomiting and other Details: Hematemesis ; Denies diarrhea Genitourinary Genitourinary ED: Denies dysuria Musculoskeletal Musculoskeletal: Denies back pain or extremity pain Integumentary Denies Abrasions or rash Neurologic Neurologic: Reports weakness; Denies headache(s) Psychiatric Psychiatric: Denies anxiety or depression Allergic/Immunologic Allergic/Immunologic ED: Denies lip swelling or urticaria EXAM Physical Exam Const Vital Signs: 03/31/23 21:11 03/31/23 21:14 Temperature 97.7 F L Temperature Source Oral Pulse Rate 92 Respiratory Rate 18 Blood Pressure 97/65 Blood Pressure Mean 75 Pulse Ox 95 Oxygen Delivery Method Room Air Positive well nourished and well developed General Appearance ED: well developed HEENT Reports moist mucous membranes Chest Wall inspection of chest normal and palpation of chest normal Resp normal respiratory effort and clear to auscultation bilaterally Cardio regular rate and regular rhythm GI GI Narrative: Abdomen soft with mild diffuse tenderness. No guarding or rebound. Neuro oriented x3 and no sensory deficits noted Psych mental status grossly normal Skin no rashes or lesions noted MDM MDM MDM Narrative Medical decision making narrative: IV line established. Labwork obtained to evaluate for leukocytosis, anemia, and electrolyte derangement. Patient given IV fluids at 150. Patient given IV Protonix along with Zofran. had contacted hospice and hospice nurse presented to the emergency room to evaluate the patient. Lab Data Attestation: I reviewed the patient's lab results. Labs: Laboratory Results - last 24 hr 03/31/23 03/31/23 03/31/23 21:45 21:45 21:45 WBC 11.1 H RBC 4.02 L Hgb 10.3 L Hct 32.6 L MCV 81.1 MCH 25.6 L MCHC 31.6 L RDW Std Deviation 51.5 H RDW Coeff of Anastasiya 17.7 H Plt Count 344 MPV 9.8 Immature Gran % (Auto) 0.500 Neut % (Auto) 67.6 Lymph % (Auto) 15.6 L Cameron % (Auto) 13.5 H Eos % (Auto) 2.2 Baso % (Auto) 0.6 Absolute Neuts (auto) 7.5 Absolute Lymphs (auto) 1.74 Nucleated RBC % 0 PT 16.3 H INR 1.3 APTT 39.1 H Sodium 132 L Potassium 5.0 Chloride 99 Carbon Dioxide 23.0 Anion Gap 10 BUN 46 H Creatinine 1.09 Estim Creat Clear Calc 52.25 Est GFR (MDRD) Af Amer 83 Est GFR (MDRD) Non-Af 69 BUN/Creatinine Ratio 42.2 H Glucose 187 H Calcium 9.3 Total Bilirubin 1.20 H Direct Bilirubin 0.61 H AST 147 H ALT 77 H Alkaline Phosphatase 614 H Total Protein 5.7 L Albumin 2.2 L Globulin 3.5 Treatment and Re-Evaluation :: CBC reveals a white count of 11.1. Hemoglobin is 10.3. This is down approximately 2 g from the first of the month. Coags reveal an INR of 1.3 and a PT of 16.3. Chemistry studies reveal a sodium of 132 with a BUN of 46 and a creatinine of 1.09. Patient's BUN has nearly doubled since the first of this month. Glucose is 187. Total bilirubin is 1.2 and direct bilirubin is 0.61. AST is 147 and ALT is 77. Alk phos is 614. I was able to review some prior records for the patient. He was seen by oncology here at the hospital. They note that the patient was admitted to [facility] in February. MRI at that time revealed lesion in the liver highly suspicious for hepatocellular carcinoma. Ascites fluid tested negative for malignant cells at that time. Patient's lesions were not felt to be operable and therefore any attempted a biopsy would be strictly just for diagnosis and not to guide treatment. They do, that the patient had an EGD during his stay at [facility] in February that revealed grade 1 esophageal varices. Hospice nurse presented to the emergency room and spoke with the patient and family at bedside. Patient had been remaining full CODE STATUS, however stated he did not want any resuscitation and agreed to DNR comfort care status. They will plan to admit him to the inpatient unit for comfort care at this time and further monitoring of his symptoms. Discharge Plan Triage Chief Complaint: Nausea/Vomiting Other Complaint: GI Bleed ED Provider: Antionette Delgado Dx/Rx/DC Orders Clinical Impression: Acute upper GI bleed, HCC (hepatocellular carcinoma) Prescriptions: No Action tramadol 50 mg tablet 25 mg PO Q6H furosemide 20 mg tablet 20 mg PO DAILY enoxaparin 120 mg/0.8 mL syringe 120 mg subcut BID spironolactone 50 mg tablet 50 mg PO DAILY melatonin 10 mg Tablet 25 mg PO QHS tamsulosin 0.4 mg capsule 0.4 mg PO BID Qty: 180 3RF (DME) support hose See Rx Instructions .Route .MEDSUPPLY Qty: 1 0RF Rx Instructions: As directed carvedilol 6.25 mg tablet 6.25 mg PO BID Qty: 60 5RF Rx Instructions: must administer with a meal/food Primary Care Provider: Eulalia Munroe Referrals: Eulalia Munroe MD [Primary Care Provider] - Disposition Disposition: Hospice in Medical Facility Discharge Location: [facility]
[2023-03-31] MEDS: 0.9% Normal Saline 1,000 ML 150 ML IV (21:43)
[2023-03-31] MEDS: Ondansetron 4 MG/2 ML Vial IV (21:43)
[2023-03-31 22:00] LABS: Absolute Lymphocyte Count 1.74 X10^3/uL (0.83-4.51); Absolute Neutrophil Count 7.5 X10^3/uL (2.0-7.7); Basophil# 0.07 X10^3/uL; Basophil% 0.6 % (0-1); Eosinophil# 0.24 X10^3/uL; Eosinophils% 2.2 % (0-5); Hematocrit 32.6 % (40-54); Hemoglobin 10.3 g/dL (13.0-16.5); Lymphocyte # 1.74 X10^3/ul (0.83-4.51); Lymphocyte % 15.6 % (19-41); Mean Corp Hgb Conc 31.6 g/dL (32-36); Mean Corpuscular Hgb 25.6 pg (27.0-32.0); Mean Corpuscular Volume 81.1 fL (80-94); Mean Platelet Vol. 9.8 fl (6.2-12.0); Monocyte% 13.5 % (0-10); NRBC Flagged by Analyzer 0 % (0-5); Neutrophil # 7.53 X10^3/uL (2.7-7.7); Neutrophil % 67.6 % (47-70); Platelet Count 344 K/mm3 (150-450); RBC Distribution Width CV 17.7 % (11.6-14.6); RBC Distribution Width SD 51.5 fl (35.1-43.9); Red Blood Count 4.02 M/mm3 (4.6-6.2); White Blood Count 11.1 K/mm3 (4.4-11.0)
[2023-03-31 22:04] LABS: International Normalized Ratio 1.3; Prothrombin Time (Protime)PT. 16.3 SECONDS (11.7-14.9)
[2023-03-31 22:05] LABS: Partial Thromboplast Time 39.1 Seconds (24.1-36.2)
[2023-03-31 22:09] LABS: AST(SGOT) 147 U/L (15-37); Alanine Aminotransfer ALT/SGPT 77 U/L (16-61); Albumin, Serum 2.2 g/dL (3.2-5.0); Alkaline Phosphatase 614 U/L (45-117); Anion Gap 10 (5-15); BUN 46 mg/dL (7-18); BUN/Creat Ratio 42.2 RATIO (10-20); Bilirubin, Direct 0.61 mg/dL (0.00-0.30); Calcium,Total 9.3 mg/dL (8.5-10.1); Chloride 99 mmol/L (98-107); Creatinine, Serum 1.09 mg/dL (0.70-1.30); EST Glomerular Filtration Rate 69 mL/min (>60); Est Glom Filt Rate - Afr Amer 83 mL/min (>60); Estimated Creatinine Clearance 52.25 ml/min; Globulin 3.5 g/dL (2.2-4.2); Glucose 187 mg/dL (74-106); Protein, Total 5.7 g/dL (6.4-8.2); Sodium Level 132 mmol/L (136-145)
== END 2023-03-31 23:12 | disposition hospice, inpatient (51) ==
PROVIDERS: Emergency Provider Emergency Medicine; PCP Internal Medicine; Visit Provider Emergency Medicine
DX: K92.2 Gastrointestinal hemorrhage, unspecified (principal); C22.0 Liver cell carcinoma; E11.42 Type 2 diabetes mellitus with diabetic polyneuropathy; I25.10 Atherosclerotic heart disease of native coronary artery without angina pectoris; I10 Essential (primary) hypertension; Z87.891 Personal history of nicotine dependence; N40.0 Benign prostatic hyperplasia without lower urinary tract symptoms; Z95.5 Presence of coronary angioplasty implant and graft; Z79.899 Other long term (current) drug therapy
CPT/HCPCS: 74176; 80048; 80076; 85025; 85610; 85730; 96374; 99282; 99285; J7030; A4216; J2405; J3490